=== PATIENT | female | born 1975 | race Caucasian/White ===

== ENCOUNTER 2023-07-02 09:40 | Emergency (ER) | payer OTHER ==
--- OUTSIDE RECORDS SUMMARY | 2023-07-02 09:49 | XMS REPORT | Continuity of Care Document ---
:1975 Author Organization [facility] t Address [address] [facility] [address] [place] [address] Care Team Providers Name Role Phone Eliana Spears MD Primary Care Physician [email or web address] Attending Clinician Unavailable VISIT, [facility] US2 Attending Clinician Unavailable Inessa Clancy MD Attending Clinician [phone] VISIT, NURSE MICHELLE ANDRADE Attending Clinician Unavailable Farhan Mcfarland Attending Clinician INESSA CLANCY Attending Clinician Unavailable Eliana Spears MD Attending Clinician NIXON CAMPOS Attending Clinician Unavailable Nixon Hunter Attending Clinician Unknown, Attending Attending Clinician Unavailable Lab, Ang - Db Attending Clinician Unavailable Judith Almeida MD Attending Clinician JUDITH ALEMIDA Attending Clinician Unavailable Doctor Unassigned, [place] Attending Clinician Unavailable CURLY MCMILLAN Attending Clinician Unavailable Stephany Morales MD Attending Clinician CHERYLE SEGURA Attending Clinician Unavailable GRAMM, LORI A Attending Clinician Unavailable Gramm CASH OFFICE WORKER, Lori A Attending Clinician ELIANA SPEARS Attending Clinician Unavailable Only, Ang Db Test Attending Clinician Unavailable Carmen FENG, Tuan Attending Clinician TUAN THOMAS Attending Clinician Unavailable Safia Jordan RN Attending Clinician Unavailable Karl FENG, Smitha Attending Clinician Shira CASH OFFICE WORKER, Constantine Attending Clinician [phone] CONSTANTINE CORDOVA Attending Clinician Unavailable RIGOBERTO YBARRA Attending Clinician Unavailable DALJIT THOMPSON Attending Clinician Unavailable Lab, [facility] Attending Clinician Unavailable JR KELLOGG Attending Clinician Unavailable Nurse, [facility] I Attending Clinician Unavailable Provider, [facility] Attending Clinician Unavailable Jr Muñiz Attending Clinician [phone] RANDY BEVERLY Attending Clinician Unavailable Stephany Morales Attending Clinician TUTU RAHMAN Attending Clinician Unavailable [email or web address] Admitting Clinician Unavailable ELIANA SPEARS Admitting Clinician Unavailable RANDY BEVERLY Admitting Clinician Unavailable Stephany Morales Admitting Clinician TUTU RAHMAN Admitting Clinician Unavailable Payers Payer Name Policy Type Policy Number Effective Date Expiration Date S ource Problems Condition Condition Condition Status Onset Resolution Last Treating Co mments Source Name Details Category Date Date Treatment Clinician Date Atrial Atrial Diagnosis Active 2023-04-28 Me moria fibrillati fibrillati -12 11:42:14 l on on 00:00: [place] (disorder) (disorder) 00 Active 04/25/2023 Diagnosis 04/28/2023 [facility] G Cardiology [facility] Seasonal Seasonal Disease Active Unive rs allergic allergic 1-18 ity of rhinitis rhinitis 00:00: [address] Microhemat Microhemat Disease Active U nivers uria uria 2-23 ity of 00:00: [address] COVID-19 COVID-19 Disease Active Unive rs 8-01 ity of 00:00: [address] Vaginal Vaginal Disease Active Univers dryness dryness 7-15 ity of 00:00: [place] 00 [facility] Postmenopa Postmenopa Disease Active U nivers usal usal 4-21 ity of 00:00: [place] 00 Medical Branch Acquired Acquired Disease Active Unive rs hypothyroi hypothyroi 3-19 it y of dism dism 00:00: [place] 00 Medical Branch Leukopenia Leukopenia Disease Active U nivers 3-19 ity of 00:00: [place] [facility] Varicose Varicose Disease Active Unive rs veins of veins of 3-16 ity of lower lower 00:00: [place] extremity extremity 00 [facility] Abnormal Abnormal Disease Active Unive rs TSH TSH 3-16 ity of 00:00: [place] 00 Medical Branch S/P S/P Disease Active Univers ablation ablation 6-01 ity of of atrial of atrial 00:00: Anne s fibrillati fibrillati 00 Me dical on on Branch PAROXYSMAL PAROXYSMA Diagnosis Active 2017-01-04 Memoria AFIB L AFIB 12-05 08:07:00 l Active 00:00: [place] 12/05/2016 00 [facility] I48.0 I48.0 Diagnosis Active 2017-01-03 Mem oria Active 12-05 08:31:00 l 12/05/2016 00:00: Frank maldonado [address] PAROXYSMAL PAROXYSMA Diagnosis Active 2017-01-03 Memoria ATRIAL FIB L ATRIAL 12-05 08:40:00 l FIB Active 00:00: Frank maldonado 00 7 [facility] Hyperlipid Hyperlipid Disease Active [facility] Myasthenia Myasthenia Disease Recurre [facility] 00:[facility]: Medical [place] Atrial Atrial Disease Recurre [facility] fibrillati fibrillati nce 4-14 Donna kes on on 00:00: Medical 00 [place] Myasthenia Myasthenia Problem Active C ommon gravis gravis Spirit - [facility] Migraine Migraine Problem Active Commo n without without Spirit aura and aura and - [facility] with with St status status [facility] migrainosu migrainosu Me dical s, not s, not Center intractabl intractabl e e Hyperlipid Hyperlipid Diagnosis Active Common emia emia [facility] Seasonal Seasonal Diagnosis Active Com mon allergic allergic Spirit rhinitis, rhinitis, - CH I unspecifie unspecifie d trigger d [facility] Cyst of Cyst of Diagnosis Active Commo n skin skin [facility] No No Disease [place] additional additional He alth problems problems on file on file 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 Allergies, Adverse Reactions, Alerts Allergy Allergy Status Severity Reaction(s) Onset Inactive Treating Comm ents Source Name Type Date Date Clinician morphine morphine Active Cam a l [place] NO KNOWN Allergy Active [facility] NO KNOWN Drug Active [facility] ALLERGIE [facility] [place] [facility] Family History Family Member Diagnosis Comments Start Date Stop Date Source Natural brother Atrial fibrillation [facility] Natural brother Atrial fibrillation [facility] Natural father Atrial fibrillation C [facility] Natural father Atrial fibrillation [facility] Social History Social Habit Start Date Stop Date Quantity Comments Source Sexual orientation [facility] History SDOH University o f Alcohol Std Drinks [place] [facility] Malcolm History SDIA University o f Alcohol Binge [place] [facility] Malcolm History [facility] University o f Alcohol Comment [place] Med ical Branch Exposure to 2022-08-21 2022-08-31 Not sure University of SARS-CoV-2 (event) 00:00:00 16:15:00 [facility] History of Social 2022-08-31 2022-08-31 Univers ity of function 00:00:00 00:00:00 [facility] Tobacco use and 2021-11-05 2021-11-05 Smokeless [facility] exposure 00:00:00 00:00:00 tobacco non-user History SDOH 2019-10-28 2019-10-28 1 [place] o f Alcohol Frequency 00:00:00 00:00:00 [facility] Alcohol intake 2017-02-09 2017-02-[address] [facility] 00:00:00 00:00:00 non-drinker of Medical Ce nter alcohol (finding) Sex Ass[birth year] At [birth year] ERIC Noriega kes 00:00:00 [facility]:00:00 [facility] Smoking Status Start Date Stop Date Source Tobacco smoking status [facility] Medications Ordered Filled Start Stop Current Ordering Indication Dosage Frequency Signature Comments Components Source Medication Medication Date Date Medication? Clinician (SIG) Name Name atorvastati Yes [id number] 40mg Take 1 Univers n (LIPITOR) 9-21 tablet by ity of 40 mg 00:00: mouth at [place] tablet 00 bedtime. Medical Branch atorvastati Yes [id number] 40mg Take 1 Univers n (LIPITOR) 9-21 tablet by ity of 40 mg 00:00: mouth at [place] tablet 00 bedtime. Medical Branch Nurtec ODT Yes 75 mg = 1 Me moria 75 mg oral 9-12 tab, PO, l tablet, 15:00: PRN, 0 [place] disintegrat 00 Refill(s) ing Nurtec ODT Yes 75 mg = 1 Me moria 75 mg oral 9-12 tab, PO, l tablet, 15:00: PRN, 0 [place] disintegrat 00 Refill(s) ing Qulipta Yes 60 mg, PO, Ruperto rubina 9-12 Daily, 0 l 14:59: Refill(s) [place] Qulipta 0 Yes 60 mg, PO, Ruperto rubina 9-12 Daily, 0 l 14:59: Refill(s) [place] SIMVASTATIN Yes [id number] TAKE ONE Univers 40 mg 2-17 (1) ity of tablet 00:00: TABLET(S) [place] 00 BY MOUTH Medical ONCE A DAY Branch AT BEDTIME. SIMVASTATIN Yes [id number] TAKE ONE Univers 40 mg 2-17 (1) ity of tablet 00:00: TABLET(S) [place] 00 BY MOUTH Medical ONCE A DAY Branch AT BEDTIME. SIMVASTATIN 2022- No [id number] TAKE ONE Univers 40 mg 2-17 - (1) ity of tablet 00:00: 00:00 TABLET(S) [place] 00 :00 BY MOUTH Medical ONCE A DAY Branch AT BEDTIME. SIMVASTATIN 2022- No [id number] TAKE ONE Univers 40 mg 2-17 - (1) ity of tablet 00:00: 00:00 TABLET(S) [place] 00 :00 BY MOUTH Medical ONCE A DAY Branch AT BEDTIME. amoxicillin 2022- No [id number] 500mg Take 1 Univers 500 mg 09-1816 tablet by ity of tablet 00:00: 05:59 mouth in [place] 00 :00 the Medical morning Branch and 1 tablet in the evening. Do all this for 10 days. [facility] Yes 60mg Take 60 mg Un [place] (QULIPTA) 1-18 by mouth ity of 60 mg Tab 16:35: at [place] [address] bedtime. Medical Branch [facility] Yes 60mg Take 60 mg Un [place] (QULIPTA) 1-18 by mouth ity of 60 mg Tab 16:35: at [place] [address] bedtime. Medical Branch [facility] Yes 60mg Take 60 mg Un [place] (QULIPTA) 1-18 by mouth ity of 60 mg Tab 16:35: at [place] [address] bedtime. Medical Branch [facility] Yes 60mg Take 60 mg Un [place] (QULIPTA) 1-18 by mouth ity of 60 mg Tab 16:35: at [place] [address] bedtime. Medical Branch [facility] Yes 60mg Take 60 mg Un [place] (QULIPTA) 1-18 by mouth ity of 60 mg Tab 16:35: at [place] [address] bedtime. Medical Branch [facility] Yes 60mg Take 60 mg Un [place] (QULIPTA) 1-18 by mouth ity of 60 mg Tab 16:35: at [place] [address] bedtime. Medical Branch [facility] 2023-0 Yes 60mg Take 60 mg Un [place] (QULIPTA) 1-18 by mouth ity of 60 mg Tab 16:35: at [place] [address] bedtime. Medical Branch atogepant 0 Yes 60mg Take 60 mg Un [place] (QULIPTA) 1-18 by mouth ity of 60 mg Tab 16:35: at [place] [address] bedtime. Medical Branch atogepant 0 Yes 60mg Take 60 mg Un [place] (QULIPTA) 1-18 by mouth ity of 60 mg Tab 16:35: at [place] [address] bedtime. Medical Branch azelastine 2021-08 Yes [id number] 1{spray Use 1 Univers 137 mcg 1-29 } [place] in ity of (0.1 %) 00:00: each [place] nasal spray 00 nostril in Me dical the Branch morning and 1 [place] in the evening. Use in each nostril as directed fluticasone 2021-08 Yes [id number] 1{spray Use 1 Univers propionate 1-29 } [place] in ity o f 50 00:00: each [place] mcg/actuati 00 nostril in Me dical on nasal the Branch spray morning. bromphenira 2021-08 Yes [id number] 10mL Take 10 mL Univers mine-pseudo 1-29 by mouth 4 it y of ephedrine-D 00:00: ([place] (BROMFED 00 times Medical DM) 2-30-10 daily as Bran ch mg/5 mL needed for syrup Congestion /Allergies . azelastine 2021-08 Yes [id number] 1{spray Use 1 Univers 137 mcg 1-29 } [place] in ity of (0.1 %) 00:00: each [place] nasal spray 00 nostril in Me dical the Branch morning and 1 [place] in the evening. Use in each nostril as directed fluticasone 2021-08 Yes [id number] 1{spray Use 1 Univers propionate 1-29 } [place] in ity o f 50 00:00: each [place] mcg/actuati 00 nostril in Me dical on nasal the Branch spray morning. bromphenira 2021-08 Yes [id number] 10mL Take 10 mL Univers mine-pseudo 1-29 by mouth 4 it y of ephedrine-D 00:00: (four[place] (BROMFED 00 times Medical DM) 2-30-10 daily as Bran ch mg/5 mL needed for syrup Congestion /Allergies . azelastine 2021-08 Yes [id number] 1{spray Use 1 Univers 137 mcg 1-29 } [place] in ity of (0.1 %) 00:00: each [place] nasal spray 00 nostril in Me dical the Branch morning and 1 [place] in the evening. Use in each nostril as directed fluticasone 2021-08 Yes [id number] 1{spray Use 1 Univers propionate 1-29 } [place] in ity o f 50 00:00: each [place] mcg/actuati 00 nostril in Me dical on nasal the Branch spray morning. azelastine 2021-08 Yes [id number] 1{spray Use 1 Univers 137 mcg 1-29 } [place] in ity of (0.1 %) 00:00: each [place] nasal spray 00 nostril in Me dical the Branch morning and 1 [place] in the evening. Use in each nostril as directed fluticasone 2021-08 Yes [id number] 1{spray Use 1 Univers propionate 1-29 } [place] in ity o f 50 00:00: each [place] mcg/actuati 00 nostril in Me dical on nasal the Branch spray morning. azelastine 2021-08 Yes [id number] 1{spray Use 1 Univers 137 mcg 1-29 } [place] in ity of (0.1 %) 00:00: each [place] nasal spray 00 nostril in Me dical the Branch morning and 1 [place] in the evening. Use in each nostril as directed fluticasone 2021-08 Yes [id number] 1{spray Use 1 Univers propionate 1-29 } [place] in ity o f 50 00:00: each [place] mcg/actuati 00 nostril in Me dical on nasal the Branch spray morning. azelastine 2021-08 Yes [id number] 1{spray Use 1 Univers 137 mcg 1-29 } [place] in ity of (0.1 %) 00:00: each [place] nasal spray 00 nostril in Me dical the Branch morning and 1 [place] in the evening. Use in each nostril as directed fluticasone 2021-08 Yes [id number] 1{spray Use 1 Univers propionate 1-29 } [place] in ity o f 50 00:00: each [place] mcg/actuati 00 nostril in Me dical on nasal the Branch spray morning. azelastine 2021-08 Yes [id number] 1{spray Use 1 Univers 137 mcg 1-29 } [place] in ity of (0.1 %) 00:00: each [place] nasal spray 00 nostril in Me dical the Branch morning and 1 [place] in the evening. Use in each nostril as directed fluticasone 2021-08 Yes [id number] 1{spray Use 1 Univers propionate 1-29 } [place] in ity o f 50 00:00: each [place] mcg/actuati 00 nostril in Me dical on nasal the Branch spray morning. azelastine 2021-08 Yes [id number] 1{spray Use 1 Univers 137 mcg 1-29 } [place] in ity of (0.1 %) 00:00: each [place] nasal spray 00 nostril in Me dical the Branch morning and 1 [place] in the evening. Use in each nostril as directed fluticasone 2021-08 Yes [id number] 1{spray Use 1 Univers propionate 1-29 } [place] in ity o f 50 00:00: each [place] mcg/actuati 00 nostril in Me dical on nasal the Branch spray morning. azelastine 2021-08 Yes [id number] 1{spray Use 1 Univers 137 mcg 1-29 } [place] in ity of (0.1 %) 00:00: each [place] nasal spray 00 nostril in Me dical the Branch morning and 1 [place] in the evening. Use in each nostril as directed fluticasone 2021-08 Yes [id number] 1{spray Use 1 Univers propionate 1-29 } [place] in ity o f 50 00:00: each [place] mcg/actuati 00 nostril in Me dical on nasal the Branch spray morning. azelastine 2021-08 Yes [id number] 1{spray Use 1 Univers 137 mcg 1-29 } [place] in ity of (0.1 %) 00:00: each [place] nasal spray 00 nostril in Me dical the Branch morning and 1 [place] in the evening. Use in each nostril as directed fluticasone 2021-08 Yes [id number] 1{spray Use 1 Univers propionate 1-29 } [place] in ity o f 50 00:00: each [place] mcg/actuati 00 nostril in Mi dical on nasal the Branch spray morning. azelastine 2021-08 Yes [id number] 1{spray Use 1 Univers 137 mcg 09-11 } [place] in ity of (0.1 %) 00:00: each [place] nasal spray 00 nostril in Me dical the Branch morning and 1 [place] in the evening. Use in each nostril as directed fluticasone 2021-08 Yes [id number] 1{spray Use 1 Univers propionate 09-11 } [place] in ity o f 50 00:00: each [place] mcg/actuati 00 nostril in Mi dical on nasal the Branch spray morning. bromphenira 2021-08- No [id number] 10mL Take 10 mL Univers mine-pseudo 09-11 by mouth 4 i ty of ephedrine-D 00:00: 00:00 (four) [place] M (BROMFED 00 :00 times Medical DM) 2-30-10 daily as Bran ch mg/5 mL needed for syrup Congestion /Allergies . bromphenira 2021-08- No [id number] 10mL Take 10 mL Univers mine-pseudo 09-11 by mouth 4 i ty of ephedrine-D 00:00: 00:00 (four) [place] (BROMFED 00 :00 times Medical DM) 2-30-10 daily as Bran ch mg/5 mL needed for syrup Congestion /Allergies . ascorbic Yes 1000mg Take 1,000 U T acid 5-13 mg by Health (Vitamin C) 11:29: mouth. 1000 MG 18 tablet cholecalcif Yes 5000U Take 5,000 UT aury 5-13 Units by Health (Vitamin 11:29: mouth. D-3) 125 18 MCG (5000 UT) capsule Ubrogepant Yes 100mg QD Take 100 UT (Ubrelvy) 5-13 mg by Health 100 MG 11:29: mouth 1 tablet 18 (one) time each day. PRN Atogepant Yes 60mg Take 60 mg UT (Qulipta) 5-13 by mouth 1 Heal th 60 MG 11:29: (one) tablet 18 time. ascorbic 2021-0 Yes 1000mg Take 1,000 U T acid 3-25 mg by Health (Vitamin C) 11:31: mouth. 1000 MG 37 tablet cholecalcif 2022-0 Yes 5000U Take 5,000 UT aury 3-25 Units by Health (Vitamin 11:31: mouth. D-3) 125 37 MCG (5000 UT) capsule Ubrogepant 2022-0 Yes 100mg QD Take 100 UT (Ubrelvy) 3-25 mg by Health 100 MG 11:31: mouth 1 tablet 37 (one) time each day. PRN ascorbic 2022-0 Yes 1000mg Take 1,000 U T acid 3-25 mg by Health (Vitamin C) 11:31: mouth. 1000 MG 37 tablet cholecalcif 2022-0 Yes 5000U Take 5,000 UT aury 3-25 Units by Health (Vitamin 11:31: mouth. D-3) 125 37 MCG (5000 UT) capsule Ubrogepant 2-0 Yes 100mg QD Take 100 UT (Ubrelvy) 3-25 mg by Health 100 MG 11:31: mouth 1 tablet 37 (one) time each day. PRN divalproex 2022-0 Yes 125mg Take 125 UT (Depakote) 3-14 mg by [facility] [address] 00:00: mouth tablet 00 every night. divalproex 2022-0 Yes 125mg Take 125 UT (Depakote) 3-14 mg by [facility] [address] 00:00: mouth tablet 00 every night. divalproex 2022-0 Yes 125mg Take 125 UT (Depakote) 3-14 mg by [facility] [address] 00:00: mouth tablet 00 every night. DULoxetine 2022-0 Yes 20mg QD Take 20 mg U T (Cymbalta) 3-12 by mouth 1 Hea l[facility] [address] 00:00: (one) time capsule 00 each day. DULoxetine 2022-0 Yes 20mg QD Take 20 mg U T (Cymbalta) 3-12 by mouth 1 [facility] [address] 00:00: (one) time capsule 00 each day. DULoxetine 2022-0 Yes 20mg QD Take 20 mg U T (Cymbalta) 3-12 by mouth 1 [facility] [address] 00:00: (one) time capsule 00 each day. mycophenola 2022-0 Yes 250mg Q.5D Take 250 U T te 2-23 mg by Health (Cellcept) 00:00: mouth 2 250 MG 00 (two) capsule times a day. mycophenola 2021-0 Yes 250mg Q.5D Take 250 U T te 2-23 mg by Health (Cellcept) 00:00: mouth 2 250 MG 00 (two) capsule times a day. mycophenola 2021-0 Yes 250mg Q.5D Take 250 U T te 2-23 mg by Health (Cellcept) 00:00: mouth 2 250 MG 00 (two) capsule times a day. levothyroxi 0 Yes 1{tbl} Take 1 UT ne 2-22 tablet by Health (Synthroid, 00:00: mouth 1 Levoxyl) 50 00 (one) time MCG tablet each day in the morning. simvastatin 2021-0 Yes 40mg Take 40 mg UT (Zocor) 40 2-22 by mouth Healt h MG tablet 00:00: every 00 night. levothyroxi 2021-0 Yes [id number] 50ug Take 1 Univers ne 2-22 tablet by ity of (SYNTHROID) 00:00: mouth [place] 50 mcg 00 every Medical tablet morning. Branch simvastatin 2021-0 Yes [id number] 40mg Take 1 Univers 40 mg 2-22 tablet by ity of tablet 00:00: mouth at [place] 00 bedtime. Medical Branch levothyroxi 2021-0 Yes [id number] 50ug Take 1 Univers ne 2-22 tablet by ity of (SYNTHROID) 00:00: mouth [place] 50 mcg 00 every Medical tablet morning. Branch simvastatin 2021-0 Yes [id number] 40mg Take 1 Univers 40 mg 2-22 tablet by ity of tablet 00:00: mouth at [place] 00 bedtime. Medical Branch levothyroxi 2021-0 Yes [id number] 50ug Take 1 Univers ne 2-22 tablet by ity of (SYNTHROID) 00:00: mouth [place] 50 mcg 00 every Medical tablet morning. Branch simvastatin 2021-0 Yes [id number] 40mg Take 1 Univers 40 mg 2-22 tablet by ity of tablet 00:00: mouth at [place] 00 bedtime. Medical Branch levothyroxi 2021-0 Yes [id number] 50ug Take 1 Univers ne 2-22 tablet by ity of (SYNTHROID) 00:00: mouth [place] 50 mcg 00 every Medical tablet morning. Branch simvastatin 2021-0 Yes [id number] 40mg Take 1 Univers 40 mg 2-22 tablet by ity of tablet 00:00: mouth at [place] 00 bedtime. Medical Branch levothyroxi 2021-0 Yes [id number] 50ug Take 1 Univers ne 2-22 tablet by ity of (SYNTHROID) 00:00: mouth [place] 50 mcg 00 every Medical tablet morning. Branch simvastatin 2021-0 Yes [id number] 40mg Take 1 Univers 40 mg 2-22 tablet by ity of tablet 00:00: mouth at [place] 00 bedtime. Medical Branch levothyroxi 2021-0 Yes [id number] 50ug Take 1 Univers ne 2-22 tablet by ity of (SYNTHROID) 00:00: mouth [place] 50 mcg 00 every Medical tablet morning. Branch simvastatin 0 Yes [id number] 40mg Take 1 Univers 40 mg 2-22 tablet by ity of tablet 00:00: mouth at [place] 00 bedtime. Medical Branch levothyroxi 2021-0 Yes [id number] 50ug Take 1 Univers ne 2-22 tablet by ity of (SYNTHROID) 00:00: mouth [place] 50 mcg 00 every Medical tablet morning. Branch simvastatin 0 Yes [id number] 40mg Take 1 Univers 40 mg 2-22 tablet by ity of tablet 00:00: mouth at [place] 00 bedtime. Medical Branch levothyroxi 2021-0 Yes [id number] 50ug Take 1 Univers ne 2-22 tablet by ity of (SYNTHROID) 00:00: mouth [place] 50 mcg 00 every Medical tablet morning. Branch simvastatin 2021-0 Yes [id number] 40mg Take 1 Univers 40 mg 2-22 tablet by ity of tablet 00:00: mouth at [place] 00 bedtime. Medical Branch levothyroxi 2021-0 Yes [id number] 50ug Take 1 Univers ne 2-22 tablet by ity of (SYNTHROID) 00:00: mouth [place] 50 mcg 00 every Medical tablet morning. Branch simvastatin 2021-0 Yes [id number] 40mg Take 1 Univers 40 mg 2-22 tablet by ity of tablet 00:00: mouth at [place] 00 bedtime. Medical Branch levothyroxi 2021-0 Yes [id number] 50ug Take 1 Univers ne 2-22 tablet by ity of (SYNTHROID) 00:00: mouth [place] 50 mcg 00 every Medical tablet morning. Branch simvastatin 2021-0 Yes [id number] 40mg Take 1 Univers 40 mg 2-22 tablet by ity of tablet 00:00: mouth at [place] 00 bedtime. Medical Branch levothyroxi 2021-0 Yes [id number] 50ug Take 1 Univers ne 2-22 tablet by ity of (SYNTHROID) 00:00: mouth [place] 50 mcg 00 every Medical tablet morning. Branch simvastatin 2021-0 Yes [id number] 40mg Take 1 Univers 40 mg 2-22 tablet by ity of tablet 00:00: mouth at [place] 00 bedtime. Medical Branch levothyroxi 2021-0 Yes [id number] 50ug Take 1 Univers ne 2-22 tablet by ity of (SYNTHROID) 00:00: mouth [place] 50 mcg 00 every Medical tablet morning. Branch levothyroxi 2021-0 Yes [id number] 50ug Take 1 Univers ne 2-22 tablet by ity of (SYNTHROID) 00:00: mouth [place] 50 mcg 00 every Medical tablet morning. Branch levothyroxi 2021-0 Yes [id number] 50ug Take 1 Univers ne 2-22 tablet by ity of (SYNTHROID) 00:00: mouth [place] 50 mcg 00 every Medical tablet morning. Branch levothyroxi 2021-0 Yes [id number] 50ug Take 1 Univers ne 2-22 tablet by ity of (SYNTHROID) 00:00: mouth [place] 50 mcg 00 every Medical tablet morning. Branch levothyroxi 0 Yes 1{tbl} Take 1 UT ne 2-22 tablet by Health (Synthroid, 00:00: mouth 1 Levoxyl) 50 00 (one) time MCG tablet each day in the morning. simvastatin 2021-0 Yes 40mg Take 40 mg UT (Zocor) 40 2-22 by mouth Healt h MG tablet 00:00: every 00 night. levothyroxi 2021-0 Yes 1{tbl} Take 1 UT ne 2-22 tablet by Health (Synthroid, 00:00: mouth 1 Levoxyl) 50 00 (one) time MCG tablet each day in the morning. simvastatin 2021-0 Yes 40mg Take 40 mg UT (Zocor) 40 2-22 by mouth Healt h MG tablet 00:00: every 00 night. simvastatin 2021-0 2023- No [id number] 40mg Take 1 Univers 40 mg 2-22 09-30 tablet by ity of tablet 00:00: 00:00 mouth at [place] 00 :00 bedtime. Medical Branch pyridostigm 2020-08 Yes 60mg Q.2D Take 60 mg UT ine 0-25 by mouth 5 Health (Mestinon) 00:00: (five) 60 MG 00 times a tablet day. pyridostigm 2020-08 Yes 60mg Q.2D Take 60 mg UT ine 0-25 by mouth 5 Health (Mestinon) 00:00: (five) 60 MG 00 times a tablet day. pyridostigm 2020-08 Yes 60mg Q.2D Take 60 mg [facility] ine 0-25 by mouth 5 [facility] ([place]) 00:00: (five) 60 MG 00 times a tablet day. UBRELVY 100 Yes Take by [facility] vers mg Tab 8-19 mouth as ity of 17:28: needed. [place] [address] Medical Branch UBRELVY 100 Yes Take by [facility] vers mg Tab 8-19 mouth as ity of 17:28: needed. [place] [address] Medical Branch UBRELVY 100 Yes Take by [facility] vers mg Tab 8-19 mouth as ity of 17:28: needed. [place] [address] Medical Branch UBRELVY 100 Yes Take by [facility] vers mg Tab 8-19 mouth as ity of 17:28: needed. [place] [address] Medical Branch UBRELVY 100 Yes Take by [facility] vers mg Tab 8-19 mouth as ity of 17:28: needed. [address] Branch UBRELVY 100 Yes Take by [facility] vers mg Tab 8-19 mouth as ity of 17:28: needed. [place] [address] Medical Branch UBRELVY 100 Yes Take by [facility] vers mg Tab 8-19 mouth as ity of 17:28: needed. [address] Branch UBRELVY 100 Yes Take by [facility] vers mg Tab 8-19 mouth as ity of 17:28: needed. [place] [address] Medical Branch UBRELVY 100 Yes Take by [facility] vers mg Tab 8-19 mouth as ity of 17:28: needed. [address] Branch UBRELVY 100 Yes Take by [facility] vers mg Tab 8-19 mouth as ity of 17:28: needed. [place] [address] Medical Branch UBRELVY 100 Yes Take by [facility] vers mg Tab 8-19 mouth as ity of 17:28: needed. [place] [address] Medical Branch UBRELVY 100 0 Yes Take by [facility] vers mg Tab 8-19 mouth as ity of 17:28: needed. [place] [address] [facility] Branch UBRELVY 100 Yes Take by [facility] [place] mg Tab 8-19 mouth as ity of 17:28: needed. [place] [address] Medical Branch UBRELVY 100 0 Yes Take by [facility] vers mg Tab 8-19 mouth as ity of 17:28: needed. [place] [address] [facility] Branch UBRELVY 100 0 Yes Take by [facility] vers mg Tab 8-19 mouth as ity of 17:28: needed. [place] [address] Medical Branch ascorbic Yes Take by Univer s acid 7-15 mouth. ity of (VITAMIN C 09:55: [place] ORAL) Medical Branch cyanocobala Yes Take by [facility] vers min, 7-15 mouth. ity of vitamin 09:55: [place] B-12, 38 Medical (VITAMIN Branch B-12 ORAL) calcium Yes Take by [facility] carbonate/v 7-15 mouth. ity of itamin D3 09:55: [place] (VITAMIN 38 Medical D-3 ORAL) Branch ascorbic Yes Take by Univer s acid 7-15 mouth. ity of (VITAMIN C 09:55: [place] ORAL) Medical Branch cyanocobala Yes Take by [facility] vers min, 7-15 mouth. ity of vitamin 09:55: [place] B-12, 38 Medical (VITAMIN Branch B-12 ORAL) calcium 0 Yes Take by [facility] carbonate/v 7-15 mouth. ity of itamin D3 09:55: [place] (VITAMIN 38 Medical D-3 ORAL) Branch ascorbic Yes Take by Univer s acid 7-15 mouth. ity of (VITAMIN C 09:55: [place] ORAL) Medical Branch cyanocobala Yes Take by [facility] vers min, 7-15 mouth. ity of vitamin 09:55: [place] B-12, 38 Medical (VITAMIN Branch B-12 ORAL) calcium 0 Yes Take by [facility] carbonate/v 7-15 mouth. ity of itamin D3 09:55: [place] (VITAMIN 38 Medical D-3 ORAL) Branch ascorbic Yes Take by Univer s acid 7-15 mouth. ity of (VITAMIN C 09:55: [place] ORAL) 38 Medical Branch cyanocobala Yes Take by [facility] vers min, 7-15 mouth. ity of vitamin 09:55: [place] B-12, 38 Medical (VITAMIN Branch B-12 ORAL) calcium Yes Take by [facility] carbonate/v 7-15 mouth. ity of itamin D3 09:55: [place] (VITAMIN 38 Medical D-3 ORAL) Branch ascorbic Yes Take by Univer s acid 7-15 mouth. ity of (VITAMIN C 09:55: [place] ORAL) 38 Medical Branch cyanocobala Yes Take by [facility] vers min, 7-15 mouth. ity of vitamin 09:55: [place] B-12, 38 Medical (VITAMIN Branch B-12 ORAL) calcium Yes Take by [facility] carbonate/v 7-15 mouth. ity of itamin D3 09:55: [place] (VITAMIN 38 Medical D-3 ORAL) Branch ascorbic Yes Take by Univer s acid 7-15 mouth. ity of (VITAMIN C 09:55: [place] ORAL) 38 Medical Branch cyanocobala Yes Take by [facility] vers min, 7-15 mouth. ity of vitamin 09:55: [place] B-12, 38 Medical (VITAMIN Branch B-12 ORAL) calcium Yes Take by [facility] carbonate/v 7-15 mouth. ity of itamin D3 09:55: [place] (VITAMIN 38 Medical D-3 ORAL) Branch ascorbic Yes Take by Univer s acid 7-15 mouth. ity of (VITAMIN C 09:55: [place] ORAL) 38 Medical Branch cyanocobala Yes Take by [facility] vers min, 7-15 mouth. ity of vitamin 09:55: [place] B-12, 38 Medical (VITAMIN Branch B-12 ORAL) calcium 0 Yes Take by [facility] carbonate/v 7-15 mouth. ity of itamin D3 09:55: [place] (VITAMIN 38 Medical D-3 ORAL) Branch ascorbic Yes Take by Univer s acid 7-15 mouth. ity of (VITAMIN C 09:55: [place] ORAL) 38 Medical Branch cyanocobala Yes Take by [facility] vers min, 7-15 mouth. ity of vitamin 09:55: [place] B-12, 38 Medical (VITAMIN Branch B-12 ORAL) calcium 0 Yes Take by [facility] carbonate/v 7-15 mouth. ity of itamin D3 09:55: [place] (VITAMIN 38 Medical D-3 ORAL) Branch ascorbic 0 Yes Take by Univer s acid 7-15 mouth. ity of (VITAMIN C 09:55: [place] ORAL) 38 Medical Branch cyanocobala Yes Take by [facility] vers min, 7-15 mouth. ity of vitamin 09:55: [place] B-12, 38 Medical (VITAMIN Branch B-12 ORAL) calcium Yes Take by [facility] carbonate/v 7-15 mouth. ity of itamin D3 09:55: [place] (VITAMIN 38 Medical D-3 ORAL) Branch ascorbic Yes Take by Univer s acid 7-15 mouth. ity of (VITAMIN C 09:55: [place] ORAL) 38 Medical Branch cyanocobala Yes Take by [facility] vers min, 7-15 mouth. ity of vitamin 09:55: [place] B-12, 38 Medical (VITAMIN Branch B-12 ORAL) calcium 0 Yes Take by [facility] carbonate/v 7-15 mouth. ity of itamin D3 09:55: [place] (VITAMIN 38 Medical D-3 ORAL) Branch ascorbic Yes Take by Univer s acid 7-15 mouth. ity of (VITAMIN C 09:55: [place] ORAL) 38 Medical Branch cyanocobala Yes Take by [facility] vers min, 7-15 mouth. ity of vitamin 09:55: [place] B-12, 38 Medical (VITAMIN Branch B-12 ORAL) calcium 0 Yes Take by [facility] carbonate/v 7-15 mouth. ity of itamin D3 09:55: [place] (VITAMIN 38 Medical D-3 ORAL) Branch ascorbic 0 Yes Take by Univer s acid 7-15 mouth. ity of (VITAMIN C 09:55: [place] ORAL) 38 Medical Branch cyanocobala Yes Take by [facility] vers min, 7-15 mouth. ity of vitamin 09:55: [place] B-12, 38 Medical (VITAMIN Branch B-12 ORAL) calcium 0 Yes Take by [facility] carbonate/v 7-15 mouth. ity of itamin D3 09:55: [place] (VITAMIN 38 Medical D-3 ORAL) Branch ascorbic 0 Yes Take by Univer s acid 7-15 mouth. ity of (VITAMIN C 09:55: [place] ORAL) 38 Medical Branch cyanocobala Yes Take by [facility] vers min, 7-15 mouth. ity of vitamin 09:55: [place] B-12, 38 Medical (VITAMIN Branch B-12 ORAL) calcium 0 Yes Take by [facility] carbonate/v 7-15 mouth. ity of itamin D3 09:55: [place] (VITAMIN 38 Medical D-3 ORAL) Branch ascorbic Yes Take by Univer s acid 7-15 mouth. ity of (VITAMIN C 09:55: [place] ORAL) 38 Medical Branch cyanocobala Yes Take by [facility] vers min, 7-15 mouth. ity of vitamin 09:55: [place] B-12, 38 Medical (VITAMIN Branch B-12 ORAL) calcium Yes Take by [facility] carbonate/v 7-15 mouth. ity of itamin D3 09:55: [place] (VITAMIN 38 Medical D-3 ORAL) Branch ascorbic Yes Take by Univer s acid 7-15 mouth. ity of (VITAMIN C 09:55: [place] ORAL) 38 Medical Branch cyanocobala Yes Take by [facility] vers min, 7-15 mouth. ity of vitamin 09:55: [place] B-12, 38 Medical (VITAMIN Branch B-12 ORAL) calcium 0 Yes Take by [facility] carbonate/v 7-15 mouth. ity of itamin D3 09:55: [place] (VITAMIN 38 Medical D-3 ORAL) Branch ascorbic Yes Take by Univer s acid 7-15 mouth. ity of (VITAMIN C 09:55: [place] ORAL) 38 Medical Branch cyanocobala 0 Yes Take by Uni vers min, 7-15 mouth. ity of vitamin 09:55: [place] B-12, 38 Medical (VITAMIN Branch B-12 ORAL) calcium 0 Yes Take by [facility] carbonate/v 7-15 mouth. ity of itamin D3 09:55: [place] (VITAMIN 38 Medical D-3 ORAL) Branch cyclobenzap 2021-0 Yes 5mg Take 5 mg [facility] rine 4-14 by mouth. Health (Flexeril) 00:00: prn 5 MG tablet 00 cyclobenzap 1-0 Yes 5mg Take 5 mg [facility] T rine 4-14 by mouth. Health (Flexeril) 00:00: prn 5 MG tablet 00 cyclobenzap 2021-0 Yes 5mg Take 5 mg [facility] rine 4-14 by mouth. Health (Flexeril) 00:00: prn 5 MG tablet 00 cyclobenzap 1-0 Yes [id number] 5mg Take 1 [facility] rine 5 mg 4-14 tablet by ity o f tablet 00:00: mouth 3 [place] 00 (three) Medical times Branch daily as needed for Muscle Spasms. cyclobenzap 1-0 Yes [id number] 5mg Take 1 [facility] rine 5 mg 4-14 tablet by ity o f tablet 00:00: mouth 3 [place] 00 (three) Medical times Branch daily as needed for Muscle Spasms. cyclobenzap 1-0 Yes [id number] 5mg Take 1 [facility] rine 5 mg 4-14 tablet by ity o f tablet 00:00: mouth 3 00 (three) Medical times Branch daily as needed for Muscle Spasms. cyclobenzap 1-0 Yes [id number] 5mg Take 1 [facility] rine 5 mg 4-14 tablet by ity o f tablet 00:00: mouth 3 [place] 00 (three) Medical times Branch daily as needed for Muscle Spasms. cyclobenzap 2021-0 Yes [id number] 5mg Take 1 [facility] rine 5 mg 4-14 tablet by ity o f tablet 00:00: mouth 3 00 (three) Medical times Branch daily as needed for Muscle Spasms. cyclobenzap 2021-0 Yes [id number] 5mg Take 1 [facility] rine 5 mg 4-14 tablet by ity o f tablet 00:00: mouth 3 [place] 00 (three) Medical times Branch daily as needed for Muscle Spasms. cyclobenzap 2021-0 Yes [id number] 5mg Take 1 [facility] rine 5 mg 4-14 tablet by ity o f tablet 00:00: mouth 3 [place] 00 (three) Medical times Branch daily as needed for Muscle Spasms. cyclobenzap 2021-0 Yes [id number] 5mg Take 1 [facility] rine 5 mg 4-14 tablet by ity o f tablet 00:00: mouth 3 (three) Medical times Branch daily as needed for Muscle Spasms. cyclobenzap 1-0 Yes [id number] 5mg Take 1 [facility] rine 5 mg 4-14 tablet by ity o f tablet 00:00: mouth 3 (three) Medical times Branch daily as needed for Muscle Spasms. cyclobenzap 2020-0 Yes [id number] 5mg Take 1 [facility] rine 5 mg 4-14 tablet by ity o f tablet 00:00: mouth 3 (three) Medical times Branch daily as needed for Muscle Spasms. cyclobenzap 2020-0 Yes [id number] 5mg Take 1 [facility] rine 5 mg 4-14 tablet by ity o f tablet 00:00: mouth 3 (three) Medical times Branch daily as needed for Muscle Spasms. cyclobenzap 1-0 Yes [id number] 5mg Take 1 [facility] rine 5 mg 4-14 tablet by ity o f tablet 00:00: mouth 3 (three) Medical times Branch daily as needed for Muscle Spasms. cyclobenzap 2020-0 Yes [id number] 5mg Take 1 [facility] rine 5 mg 4-14 tablet by ity o f tablet 00:00: mouth 3 (three) Medical times Branch daily as needed for Muscle Spasms. cyclobenzap 1-0 Yes [id number] 5mg Take 1 [facility] rine 5 mg 4-14 tablet by ity o f tablet 00:00: mouth 3 (three) Medical times Branch daily as needed for Muscle Spasms. cyclobenzap 1-0 Yes [id number] 5mg Take 1 [facility] rine 5 mg 4-14 tablet by ity o f tablet 00:00: mouth 3 (three) Medical times Branch daily as needed for Muscle Spasms. cyclobenzap 2021-0 Yes [id number] 5mg Take 1 [facility] rine 5 mg 4-14 tablet by ity o f tablet 00:00: mouth 3 (three) Medical times Branch daily as needed for Muscle Spasms. cyclobenzap 2021-0 Yes [id number] 5mg Take 1 [facility] rine 5 mg 4-14 tablet by ity o f tablet 00:00: mouth 3 00 (three) Medical times Branch daily as needed for Muscle Spasms. imiquimod 5 2020-0 Yes APPLY TO [facility] % cream 9-14 AFFECTED ity of 00:00: [facility] 00 [facility] Branch TAKE A TWO DAY BREAK THEN RESTART. imiquimod 5 2020-0 Yes APPLY TO [facility] [place] % cream 9-14 AFFECTED ity of 00:00: [facility] 00 [facility] Branch TAKE A TWO DAY BREAK THEN RESTART. imiquimod 5 2020-0 Yes APPLY TO [facility] [place] % cream 9-14 AFFECTED ity of 00:00: [facility] 00 [facility] Branch TAKE A TWO DAY BREAK THEN RESTART. imiquimod 5 2020-0 Yes APPLY TO [facility] [place] % cream 9-14 AFFECTED ity of 00:00: [facility] 00 [facility] Branch TAKE A TWO DAY BREAK THEN RESTART. imiquimod 5 2020-0 Yes APPLY TO [facility] [place] % cream 9-14 AFFECTED ity of 00:00: [address] Branch TAKE A TWO DAY BREAK THEN RESTART. imiquimod 5 2020-0 2021- No APPLY TO U nivers % cream 9-14 -29 AFFECTED ity of 00:00: 00:00 [facility] 00 :00 [facility] Branch TAKE A TWO DAY BREAK THEN RESTART. DULoxetine 2020-0 Yes TAKE ONE Uni vers 20 mg 2-21 (1) ity of capsule 00:00: [place] BY MOUTH Medical ONCE A Branch DAY. DULoxetine 2020-0 Yes TAKE ONE Uni vers 20 mg 2-21 (1) ity of capsule 00:00: [place](S[place] 00 BY MOUTH Medical ONCE A Branch DAY. DULoxetine 2020-0 Yes TAKE ONE Uni vers 20 mg 2-21 (1) ity of capsule 00:00: [place](S[place] 00 BY MOUTH Medical ONCE A Branch DAY. DULoxetine 2020-0 Yes TAKE ONE [facility] vers 20 mg 2-21 (1) ity of capsule 00:00: [place](S) [place] 00 BY MOUTH Medical ONCE A Branch DAY. DULoxetine 2020-0 Yes TAKE ONE [facility] vers 20 mg 2-21 (1) ity of capsule 00:00: [place](S[place] 00 BY MOUTH Medical ONCE A Branch DAY. DULoxetine 2020-0 Yes TAKE ONE [facility] vers 20 mg 2-21 (1) ity of capsule 00:00: [place](S) [place] 00 BY MOUTH Medical ONCE A Branch DAY. DULoxetine 2020-0 Yes TAKE ONE Uni vers 20 mg 2-21 (1) ity of capsule 00:00: [place](S) [place] 00 BY MOUTH Medical ONCE A Branch DAY. DULoxetine 2020-0 Yes TAKE ONE [facility] vers 20 mg 2-21 (1) ity of capsule 00:00: [place](S) [place] 00 BY MOUTH Medical ONCE A Branch DAY. DULoxetine 2020-0 Yes TAKE ONE [facility] vers 20 mg 2-21 (1) ity of capsule 00:00: [place](S) [place] 00 BY MOUTH Medical ONCE A Branch DAY. DULoxetine 2020-0 Yes TAKE ONE Uni vers 20 mg 2-21 (1) ity of capsule 00:00: [place](S) [place] 00 BY MOUTH Medical ONCE A Branch DAY. DULoxetine 2020-0 Yes TAKE ONE Uni vers 20 mg 2-21 (1) ity of capsule 00:00: [place](S) [place] 00 BY MOUTH Medical ONCE A Branch DAY. DULoxetine 2020-0 Yes TAKE ONE [facility] vers 20 mg 2-21 (1) ity of capsule 00:00: [place](S) [place] 00 BY MOUTH Medical ONCE A Branch DAY. DULoxetine 2020-0 Yes TAKE ONE Uni vers 20 mg 2-21 (1) ity of capsule 00:00: [place](S) [place] 00 BY MOUTH Medical ONCE A Branch DAY. DULoxetine 2020-0 Yes TAKE ONE Uni vers 20 mg 2-21 (1) ity of capsule 00:00: [place]LE(S) [place] 00 BY MOUTH Medical ONCE A Branch DAY. DULoxetine 2020-0 Yes TAKE ONE Uni vers 20 mg 2-21 (1) ity of capsule 00:00: [place]LE(S) [place] 00 BY MOUTH Medical ONCE A Branch DAY. DULoxetine 2020-0 Yes TAKE ONE Uni vers 20 mg 2-21 (1) ity of capsule 00:00: [place]LE(S) [place] 00 BY MOUTH Medical ONCE A Branch DAY. DULoxetine 2020-0 Yes TAKE ONE Uni vers 20 mg 2-21 (1) ity of capsule 00:00: [place]LE(S) [place] 00 BY MOUTH Medical ONCE A Branch DAY. divalproex 2020-0 Yes TK 1 T PO [facility] [place] 125 mg EC 1-13 QHS ity of tablet 00:00: [place] 00 Medical Branch divalproex 2020-0 Yes TK 1 T PO [facility] [place] 125 mg EC 1-13 QHS ity of tablet 00:00: [place] 00 Medical Branch divalproex 2020-0 Yes TK 1 T PO [facility] [place] 125 mg EC 1-13 QHS ity of tablet 00:00: [place] 00 Medical Branch divalproex 2020-0 Yes TK 1 T PO [facility] [place] 125 mg EC 1-13 QHS ity of tablet 00:00: [place] 00 Medical Branch divalproex 2020-0 Yes TK 1 T PO [facility] [place] 125 mg EC 1-13 QHS ity of tablet 00:00: [place] [facility] divalproex 2020-0 Yes TK 1 T PO [facility] [place] 125 mg EC 1-13 QHS ity of tablet 00:00: [place] [facility] divalproex 2020-0 2023- No TK 1 T PO U nivers 125 mg EC -13 18 QHS ity of tablet 00:00: 00:00 [place] 00 :00 Medical Branch divalproex 2020-0 2023- No TK 1 T PO U nivers 125 mg EC 1-13 18 QHS ity of tablet 00:00: 00:00 [place] 00 :00 Medical Branch mycophenola 2020-0 Yes 500mg Take 500 U nivers te 250 mg 1-09 mg by ity of capsule 00:00: mouth 2 [place] ([facility]) Medical times [place] daily. pyridostigm 2020-0 Yes 1-1.5 tab U nivers ine 60 mg 1-09 PO 6 x per ity of tablet 00:00: day [place] [facility] Branch mycophenola 2020-0 Yes 500mg Take 500 U nivers te 250 mg 1-09 mg by ity of capsule 00:00: mouth 2 [place] ([facility]) Medical times [place] daily. pyridostigm 2020-0 Yes 1-1.5 tab U nivers ine 60 mg 1-09 PO 6 x per ity of tablet 00:00: day [place] [facility] Branch mycophenola 2020-0 Yes 500mg Take 500 U nivers te 250 mg 1-09 mg by ity of capsule 00:00: mouth 2 [place] [id number] (two) Medical times Branch daily. pyridostigm 2020-0 Yes 1-1.5 tab U nivers ine 60 mg 1-09 PO 6 x per ity of tablet 00:00: day [place] [facility] Branch mycophenola 2020-0 Yes 500mg Take 500 U nivers te 250 mg 1-09 mg by ity of capsule 00:00: mouth 2 [place] (two) Medical times Branch daily. pyridostigm 2020-0 Yes 1-1.5 tab U nivers ine 60 mg 1-09 PO 6 x per ity of tablet 00:00: [place] [facility] Branch mycophenola 2020-0 Yes 500mg Take 500 U nivers te 250 mg 1-09 mg by ity of capsule 00:00: mouth [place] (two) Medical times [place] daily. pyridostigm 2020-0 Yes 1-1.5 tab U nivers ine 60 mg 1-09 PO 6 x per ity of tablet 00:00: [place] [facility] mycophenola 2020-0 Yes 500mg Take 500 U nivers te 250 mg 1-09 mg by ity of capsule 00:00: mouth [place] (two) Medical times [place] daily. pyridostigm 2020-0 Yes 1-1.5 tab U nivers ine 60 mg 1-09 PO 6 x per ity of tablet 00:00: [place] [facility] mycophenola 2020-0 Yes 500mg Take 500 U nivers te 250 mg 1-09 mg by ity of capsule 00:00: mouth [place] (two) Medical times [place] daily. pyridostigm 2020-0 Yes 1-1.5 tab U nivers ine 60 mg 1-09 PO 6 x per ity of tablet 00:00: [place] [facility] Branch mycophenola 2020-0 Yes 500mg Take 500 U nivers te 250 mg 1-09 mg by ity of capsule 00:00: mouth [place] (two) Medical times [place] daily. pyridostigm 2020-0 Yes 1-1.5 tab U nivers ine 60 mg 1-09 PO 6 x per ity of tablet 00:00: [place] [facility] Branch mycophenola 2020-0 Yes 500mg Take 500 U nivers te 250 mg 1-09 mg by ity of capsule 00:00: mouth [place] (two) Medical times Branch daily. pyridostigm 2020-0 Yes 1-1.5 tab U nivers ine 60 mg 1-09 PO 6 x per ity of tablet 00:00: day [place] [facility] Branch mycophenola 2020-0 Yes 500mg Take 500 U nivers te 250 mg 1-09 mg by ity of capsule 00:00: mouth [place] (two) Medical times [place] daily. pyridostigm 2020-0 Yes 1-1.5 tab U nivers ine 60 mg 1-09 PO 6 x per ity of tablet 00:00: day [place] [facility] Branch mycophenola 2020-0 Yes 500mg Take 500 U nivers te 250 mg 1-09 mg by ity of capsule 00:00: mouth [place] (two) Medical times [place] daily. pyridostigm 2020-0 Yes 1-1.5 tab U nivers ine 60 mg 1-09 PO 6 x per ity of tablet 00:00: [place] [facility] Branch mycophenola 2020-0 Yes 500mg Take 500 U nivers te 250 mg 1-09 mg by ity of capsule 00:00: mouth [place] (two) Medical times [place] daily. pyridostigm 2020-0 Yes 1-1.5 tab U nivers ine 60 mg 1-09 PO 6 x per ity of tablet 00:00: day [place] [facility] Branch mycophenola 2020-0 Yes 500mg Take 500 U nivers te 250 mg 1-09 mg by ity of capsule 00:00: mouth [place] (two) Medical times [place] daily. pyridostigm 2020-0 Yes 1-1.5 tab U nivers ine 60 mg 1-09 PO 6 x per ity of tablet 00:00: [place] [facility] Branch mycophenola 2020-0 Yes 500mg Take 500 U nivers te 250 mg 1-09 mg by ity of capsule 00:00: mouth [place] (two) Medical times [place] daily. pyridostigm 2020-0 Yes 1-1.5 tab U nivers ine 60 mg 1-09 PO 6 x per ity of tablet 00:00: [place] [facility] Branch mycophenola 2020-0 Yes 500mg Take 500 U nivers te 250 mg 1-09 mg by ity of capsule 00:00: mouth 2 [place] (two) Medical times [place] daily. pyridostigm 2020-0 Yes 1-1.5 tab U nivers ine 60 mg 1-09 PO 6 x per ity of tablet 00:00: day [place] 00 Medical Branch mycophenola 2020-0 Yes 500mg Take 500 U nivers te 250 mg 1-09 mg by ity of capsule 00:00: mouth 2 [place] (two) Medical times Branch daily. pyridostigm 2020-0 Yes 1-1.5 tab U nivers ine 60 mg 1-09 PO 6 x per ity of tablet 00:00: day [place] [facility] mycophenola 2020-0 Yes 500mg Take 500 U nivers te 250 mg 1-09 mg by ity of capsule 00:00: mouth 2 [place] (two) Medical times Branch daily. pyridostigm 2020-0 Yes 1-1.5 tab U nivers ine 60 mg 1-09 PO 6 x per ity of tablet 00:00: day [place] [facility] mycophenola 2017-0 Yes 750mg Q.5D Take [address] te 7-02 mg by [facility] 11:36: mouth 2 [facility] 250 mg 48 (two) Center capsule times daily. pyridostigm 2017-0 Yes 60mg Q.25D Take [address] [facility] ine 7-02 by mouth 4 [facility] ([facility]) 11:36: (four) Medic al 60 mg 48 times Center tablet daily. pyridostigm 2017-0 Yes 180mg QD Take [address] ine 7-02 mg by [facility] ([place]) 11:36: mouth Medica l 180 mg CR 48 nightly. Center tablet flecainide 2017-0 Yes 50mg Q.5D Take [address] (TAMBOCOR) 7-02 by mouth 2 [place] 50 MG 11:36: (two) Medical tablet 48 times Center daily. simvastatin 2017-0 Yes 40mg QD Take [address] (ZOCOR) 40 7-02 by mouth [facility] MG tablet 11:36: nightly. [facility]i [facility] 48 Center SUMAtriptan 2017-0 Yes 25mg Take [address] [facility] [address] (IMITREX) 7-02 by mouth [facility] 25 MG 11:36: every 2 Medical tablet 48 (two) Center hours as needed for Migraine. mycophenola 2017-0 Yes 750mg Q.5D Take [address] te 7-02 mg by [facility] (CELLCEPT) 11:36: mouth 2 [facility] 250 mg 48 (two) Center capsule times daily. pyridostigm 2017-0 Yes 60mg Q.25D Take [address] [facility] ine 7-02 by mouth 4 [facility] ([place]) 11:36: (four) Medic al 60 mg 48 times Center tablet daily. pyridostigm 2017-0 Yes 180mg QD Take [address] ine 7-02 mg by [facility] ([place]) 11:36: mouth Medica l 180 mg CR 48 nightly. Center tablet flecainide 2017-0 Yes 50mg Q.5D Take [address] (TAMBOCOR) 7-02 by mouth 2 [place] 50 MG 11:36: (two) Medical tablet 48 times Center daily. simvastatin 2017-0 Yes 40mg QD Take [address] [facility] [facility] (ZOCOR) 40 7-02 by mouth [facility] MG tablet 11:36: nightly. [facility]i [facility] 48 Center SUMAtriptan 2017-0 Yes 25mg Take [address] [facility] (IMITREX) 7-02 by mouth [facility] 25 MG 11:36: every 2 Medical tablet 48 (two) Center hours as needed for Migraine. mycophenola 2017-0 Yes 750mg Q.5D Take [address] te 7-02 mg by [facility] (CELLCEPT) 11:36: mouth 2 [facility]i [facility] 250 mg 48 (two) Center capsule times daily. pyridostigm 2017-0 Yes 60mg Q.25D Take [address] [facility] ine 7-02 by mouth 4 [facility] ([place]) 11:36: (four) Medic al 60 mg 48 times Center tablet daily. pyridostigm 2017-0 Yes 180mg QD Take [address] ine 7-02 mg by [facility] ([place]) 11:36: mouth Medica l 180 mg CR 48 nightly. Center tablet flecainide 2017-0 Yes 50mg Q.5D Take [address] (TAMBOCOR) 7-02 by mouth 2 [place] 50 MG 11:36: (two) Medical tablet 48 times Center daily. simvastatin 2017-0 Yes 40mg QD Take [address] (ZOCOR) 40 7-02 by mouth [facility] MG tablet 11:36: nightly. [facility]i [facility] 48 Center SUMAtriptan 2017-0 Yes 25mg Take [address] [facility] (IMITREX) 7-02 by mouth [facility] 25 MG 11:36: every 2 Medical tablet 48 (two) Center hours as needed for Migraine. mycophenola 2017-0 Yes 750mg Q.5D Take [address] te 7-02 mg by [facility] (CELLCEPT) 11:36: mouth 2 [facility]i [facility] 250 mg 48 (two) Center capsule times daily. pyridostigm 2017-0 Yes 60mg Q.25D Take [address] [facility] ine 7-02 by mouth 4 [facility] ([place]) 11:36: (four) Medic al 60 mg 48 times Center tablet daily. pyridostigm 2017-0 Yes 180mg QD Take [address] ine 7-02 mg by [facility] ([place]) 11:36: mouth Medica l 180 mg CR 48 nightly. Center tablet flecainide 2017-0 Yes 50mg Q.5D Take [address] (TAMBOCOR) 7-02 by mouth 2 [place] 50 MG 11:36: (two) Medical tablet 48 times Center daily. simvastatin 2017-0 Yes 40mg QD Take [address] (ZOCOR) 40 7-02 by mouth [facility] MG tablet 11:36: nightly. [facility]i [facility] 48 Center SUMAtriptan 2017-0 Yes 25mg Take [address] [facility] (IMITREX) 7-02 by mouth [facility] 25 MG 11:36: every 2 Medical tablet 48 (two) Center hours as needed for Migraine. mycophenola 2017-0 Yes 750mg Q.5D Take [address] te 7-02 mg by [facility] (CELLCEPT) 11:36: mouth 2 [facility]i [facility] 250 mg 48 (two) Center capsule times daily. pyridostigm 2017-0 Yes 60mg Q.25D Take [address] [facility] ine 7-02 by mouth 4 [facility] ([place]) 11:36: (four) Medic al 60 mg 48 times Center tablet daily. pyridostigm 2017-0 Yes 180mg QD Take [address] ine 7-02 mg by [facility] ([place]) 11:36: mouth Medica l 180 mg CR 48 nightly. Center tablet flecainide 2017-0 Yes 50mg Q.5D Take [address] (TAMBOCOR) 7-02 by mouth 2 [place] 50 MG 11:36: (two) Medical tablet 48 times Center daily. simvastatin 2017-0 Yes 40mg QD Take [address] (ZOCOR) 40 7-02 by mouth [facility] MG tablet 11:36: nightly. Medi [facility] 48 Center SUMAtriptan 2017-0 Yes 25mg Take [address] (IMITREX) 7-02 by mouth [facility] 25 MG 11:36: every 2 Medical tablet 48 (two) Center hours as needed for Migraine. mycophenola 2017-0 Yes 750mg Q.5D Take [address] te 7-02 mg by [facility] (CELLCEPT) 11:36: mouth 2 [facility]i [facility] 250 mg 48 (two) Center capsule times daily. pyridostigm 2017-0 Yes 60mg Q.25D Take [address] ine 7-02 by mouth 4 [facility] ([place]) 11:36: (four) Medic al 60 mg 48 times Center tablet daily. pyridostigm 2017-0 Yes 180mg QD Take [address] ine 7-02 mg by [facility] ([place]) 11:36: mouth Medica l 180 mg CR 48 nightly. Center tablet flecainide 2017-0 Yes 50mg Q.5D Take [address] [facility] (TAMBOCOR) 7-02 by mouth 2 Nomi es 50 MG 11:36: (two) Medical tablet 48 times Center daily. simvastatin 2017-0 Yes 40mg QD Take [address] [facility] (ZOCOR) 40 7-02 by [facility] tablet 11:36: nightly. Medi flor 48 Center SUMAtriptan 2017-0 Yes 25mg Take [address] [facility] (IMITREX) 7-02 by mouth [facility] 25 MG 11:36: every 2 Medical tablet 48 (two) Center hours as needed for Migraine. mycophenola 2017-0 Yes 750mg Q.5D Take [address] te 7-02 mg by [facility] (CELLCEPT) 11:36: mouth 2 Medi flor 250 mg 48 (two) Center capsule times daily. pyridostigm 2017-0 Yes 60mg Q.25D Take [address] [facility] ine 7-02 by mouth 4 [facility] ([place]) 11:36: (four) Medic al 60 mg 48 times Center tablet daily. pyridostigm 2017-0 Yes 180mg QD Take [address] ine 7-02 [facility] by [facility] ([place]) 11:36: mouth Medica l 180 mg CR 48 nightly. Center tablet flecainide 2017-0 Yes 50mg Q.5D Take [address] (TAMBOCOR) 02-12 by mouth 2 Nomi es 50 MG 11:36: (two) Medical tablet 48 times Center daily. simvastatin Yes 40mg QD Take [address] [facility] (ZOCOR) 40 02-12 by mouth [facility] tablet 11:36: nightly. Medi flor 48 Center SUMAtriptan Yes 25mg Take [address] [facility] (IMITREX) 02-12 by mouth [facility] 25 MG 11:36: every 2 Medical tablet 48 (two) Center hours as needed for Migraine. Klor-Con No Notes: Memoria 5-26 (Same as: l 14:00: K-Dur 20) [place] 00 "Do Not Crush" With food and full glass of water Klor-Con No Notes: Memoria 5-26 (Same as: l 14:00: K-Dur 20) [place] 00 "Do Not Crush" With food and full glass of water Klor-Con No Notes: Memoria 5-26 (Same as: l 14:00: K-Dur ) Bartolo 00 "Do Not Crush" With food and full glass of water Acetaminoph Yes 1 - 2 tab, Memoria en 300 MG / 5-25 PO, Q6H, l Codeine 14:19: PRN Pain, Ludy nn Phosphate 00 Take 1-2 30 MG Oral tab every Tablet 4-6 hours [Tylenol prn pain, with X 5 day, # Codeine #3] 32 tab, 0 Refill(s) Acetaminoph Yes 1 - 2 tab, Memoria en 300 MG / 5-25 PO, Q6H, l Codeine 14:19: PRN Pain, Ludy nn Phosphate 00 Take 1-2 30 MG Oral tab every Tablet 4-6 hours [Tylenol prn pain, with X 5 day, # Codeine #3] 32 tab, 0 Refill(s) Acetaminoph Yes 1 - 2 tab, Memoria en 300 MG / 5-25 PO, Q6H, l Codeine 14:19: PRN Pain, Ludy nn Phosphate 00 Take 1-2 30 MG Oral tab every Tablet 4-6 hours [Tylenol prn pain, with X 5 day, # Codeine #3] 32 tab, 0 Refill(s) Acetaminoph No Notes: Do M emoria en 300 MG / 5-25 not exceed l Codeine 14:17: 4gm/day of Herm gosia Phosphate 00 acetaminop 30 MG Oral hen. (Same Tablet as: [Tylenol Tylenol with with Codeine #3] Codeine # 3) Acetaminoph No Notes: Do M emoria en 300 MG / 5-25 not exceed l Codeine 14:17: 4gm/day of Herm gosia Phosphate 00 acetaminop 30 MG Oral hen. (Same Tablet as: [Tylenol Tylenol with with Codeine #3] Codeine # 3) Acetaminoph No Notes: Do M emoria en 300 MG / 5-25 not exceed l Codeine 14:17: 4gm/day of Herm gosia Phosphate 00 acetaminop 30 MG Oral hen. (Same Tablet as: [Tylenol Tylenol with with Codeine #3] Codeine # 3) pantoprazol No Notes: Ruperto rubina e 5-25 Tablet l 14:00: should not Bartolo 00 be chewed or crushed. (Same as: Protonix) aspirin 81 No Notes: Do Me moria mg tablet, 5-25 not crush l enteric 14:00: or chew. Frank n coated 00 (Same As: Ecotrin) Vitamin C No Notes: Memori a 5-25 (Same as: l 14:00: Vitamin C) cholecalcif No Notes: Ruperto rubina aury 5-25 Same as : l 14:00: Vitamin D3 Vitamin B12 No Notes: Ruperto rubina 5-25 (Same As: l 14:00: Vitamin Bartolo 00 B12) Eliquis No Notes: Memoria 5-25 Same as: l 14:00: Eliquis [place] 00 pantoprazol No Notes: Ruperto rubina e 5-25 Tablet l 14:00: should not [place] 00 be chewed or crushed. (Same as: Protonix) aspirin 81 No Notes: Do Me moria mg tablet, 5-25 not crush l enteric 14:00: or chew. Frakn n coated 00 (Same As: Ecotrin) Vitamin C No Notes: Memori a 5-25 (Same as: l 14:00: Vitamin C) Bartolo 00 cholecalcif No Notes: Ruperto rubina aury 5-25 Same as : l 14:00: Vitamin D3 Bart[place] 00 Vitamin B12 No Notes: Ruperto rubina 5-25 (Same As: l 14:00: Vitamin [place] 00 B12) Eliquis No Notes: Memoria 5-25 Same as: l 14:00: Eliquis pantoprazol No Notes: Ruperto rubina e 5-25 Tablet l 14:00: should not [place] 00 be chewed or crushed. (Same as: Protonix) aspirin 81 No Notes: Do Me moria mg tablet, 5-25 not crush l enteric 14:00: or chew. Frank n coated 00 (Same As: Ecotrin) Vitamin C No Notes: Memori a 5-25 (Same as: l 14:00: Vitamin C) [place] 00 cholecalcif No Notes: Ruperto rubina aury 5-25 Same as : l 14:00: Vitamin D3 Vitamin B12 No Notes: Ruperto rubina 5-25 (Same As: l 14:00: Vitamin [place] 00 B12) Eliquis No Notes: Memoria 5-25 Same as: l 14:00: Eliquis [place] 00 ibuprofen No 600 mg = 1 Me moria 600 mg oral 5-25 tab, PO, l tablet 12:43: Q6H, PRN [place] 00 Pain or Fever, Take with food, X 5 day, # 20 tab, 0 Refill(s) Sucralfate Yes 1 gm = 1 Mem oria 1000 MG 5-25 tab, PO, l Oral Tablet 12:43: QID-Before [place] [Carafate] 00 Meals, # 56 tab, 0 Refill(s) pantoprazol Yes 40 mg = 1 M emoria e 40 mg 5-25 tab, PO, l oral 12:43: Daily, # Bartolo enteric 00 30 tab, 0 coated Refill(s) tablet ibuprofen No 600 mg = 1 Me moria 600 mg oral 5-25 tab, PO, l tablet 12:43: Q6H, PRN [place] 00 Pain or Fever, Take with food, X 5 day, # 20 tab, 0 Refill(s) Sucralfate Yes 1 gm = 1 Mem oria 1000 MG 5-25 tab, PO, l Oral Tablet 12:43: QID-Before [place] [Carafate] 00 Meals, # 56 tab, 0 Refill(s) pantoprazol Yes 40 mg = 1 M emoria e 40 mg 5-25 tab, PO, l oral 12:43: Daily, # [place] enteric 00 30 tab, 0 coated Refill(s) tablet ibuprofen No 600 mg = 1 Me moria 600 mg oral 5-25 tab, PO, l tablet 12:43: Q6H, PRN Bartolo 00 Pain or Fever, Take with food, X 5 day, # 20 tab, 0 Refill(s) Sucralfate Yes 1 gm = 1 Mem oria 1000 MG 5-25 tab, PO, l Oral Tablet 12:43: QID-Before [place] [Carafate] 00 Meals, # 56 tab, 0 Refill(s) pantoprazol Yes 40 mg = 1 M emoria e 40 mg 5-25 tab, PO, l oral 12:43: Daily, # [place] enteric 00 30 tab, 0 coated Refill(s) tablet Tylenol No Notes: Max Ruperto rubina 5-25 acetaminop l 05:23: hen 4000 Bartolo 00 mg/day (4 gm/day). (Same as: Tylenol Extra Strength) Tylenol No Notes: Max Ruperto rubina 5-25 acetaminop l 05:23: hen 4000 [place] 00 mg/day (4 gm/day). (Same as: Tylenol Extra Strength) Tylenol No Notes: Max Ruperto rubina 5-25 acetaminop l 05:23: hen 4000 Bartolo 00 mg/day (4 gm/day). (Same as: Tylenol Extra Strength) Pyridostigm No Notes: Ruperto rubina ine 5-25 (Same as: l 03:00: Mestinon) [place] 00 Do not crush or chew. Pyridostigm No Notes: Ruperto rubina ine 5-25 (Same as: l 03:00: Mestinon) [place] Do not crush or chew. Pyridostigm No Notes: Ruperto rubina ine 5-25 (Same as: l 03:00: Mestinon) [place] Do not crush or chew. Saline No Notes: Memoria Flush 0.9% 5-25 (Same as: l 02:00: BD [place] 00 Posiflush) Flecainide No Notes: Memor ia 5-25 (Same as: l 02:00: Tambocor) [place] Sucralfate No Notes: December emoria 5-25 interfere l 02:00: w/enteral [place] 00 feeds - Take 1 hr before or 2 hr after antacids, dairy pdt, meals & minerals - On empty stomach. For patients unable to swallow tablet, dissolve in 10mL - 30mL of water or juice and stir before giving. (Same As: Carafate) Simvastatin No Notes: Ruperto rubina 5-25 (Same as: l 02:00: Zocor) [place] Saline No Notes: Memoria Flush 0.9% 5-25 (Same as: l 02:00: BD [place] 00 Posiflush) Flecainide No Notes: Memor ia 5-25 (Same as: l 02:00: Tambocor) Bartolo Sucralfate No Notes: December emoria 5-25 interfere l 02:00: w/enteral [place] 00 feeds - Take 1 hr before or 2 hr after antacids, dairy pdt, meals & minerals - On empty stomach. For patients unable to swallow tablet, dissolve in 10mL - 30mL of water or juice and stir before giving. (Same As: Carafate) Simvastatin No Notes: Ruperto rubina 5-25 (Same as: l 02:00: Zocor) Bartolo Saline No Notes: Memoria Flush 0.9% 5-25 (Same as: l 02:00: BD [place] 00 Posiflush) Flecainide No Notes: Memor ia 5-25 (Same as: l 02:00: Tambocor) [place] Sucralfate No Notes: December emoria 5-25 interfere l 02:00: w/enteral [place] 00 feeds - Take 1 hr before or 2 hr after antacids, dairy pdt, meals & minerals - On empty stomach. For patients unable to swallow tablet, dissolve in 10mL - 30mL of water or juice and stir before giving. (Same As: Carafate) Simvastatin No Notes: Ruperto rubina 5-25 (Same as: l 02:00: Zocor) [place] 00 mycophenola No Notes: Ruperto rubina te mofetil 5-25 SEPARATE l 01:00: ANTACIDS [place] 00 from Cellcept by 2 hrs. (Same As: CellCept) mycophenola No Notes: Ruperto rubina te mofetil 5-25 SEPARATE l 01:00: ANTACIDS [place] 00 from Cellcept by 2 hrs. (Same As: CellCept) mycophenola No Notes: Ruperto rubina te mofetil 5-25 SEPARATE l 01:00: ANTACIDS [place] 00 from Cellcept by 2 hrs. (Same As: CellCept) apixaban 5 Yes 5 mg = 1 Mem oria MG Oral 5-25 tab, PO, l Tablet 00:54: BID, 0 [place] [Eliquis] 00 Refill(s) apixaban 5 Yes 5 mg = 1 Mem oria MG Oral 5-25 tab, PO, l Tablet 00:54: BID, 0 [place] [Eliquis] 00 Refill(s) apixaban 5 Yes 5 mg = 1 Mem oria MG Oral 5-25 tab, PO, l Tablet 00:54: BID, 0 [place] [Eliquis] 00 Refill(s) Pyridostigm No Notes: Ruperto rubina ine 5-24 (Same as: l 21:00: Mestinon) Pyridostigm No Notes: Ruperto rubina ine 5-24 (Same as: l 21:00: Mestinon) Pyridostigm No Notes: Ruperto rubina ine 5-24 (Same as: l 21:00: Mest[place]on) Zofran No 4 mg, Memoria 5-24 Route: l 20:30: IVP, Drug Bartolo 00 form: INJ, ONCE, Dosing Weight 66.364, kg, Start date: 01/04/17 15:30:00 CDT, Stop date: 01/04/17 15:30:00 CDT Zofran 2017-0 No 4 mg, Memoria 5-24 Route: l 20:30: IVP, Drug Bartolo 00 form: INJ, ONCE, Dosing Weight 66.364, kg, Start date: 01/04/17 15:30:00 CDT, Stop date: 01/04/17 15:30:00 CDT Zofran 2017-0 No 4 mg, Memoria 5-24 Route: l 20:30: IVP, Drug Bartolo 00 form: INJ, ONCE, Dosing Weight 66.364, kg, Start date: 01/04/17 15:30:00 CDT, Stop date: 01/04/17 15:30:00 CDT Saline No Notes: Memoria Flush 0.9% 5-24 (Same as: l 19:46: BD [place] 00 Posiflush) acetaminoph No Notes: Do M emoria en-codeine 5-24 not exceed l #3 19:46: 4gm/day of [place] 00 acetaminop hen. (Same as: Tylenol with Codeine # 3) Saline No Notes: Memoria Flush 0.9% 5-24 (Same as: l 19:46: BD [place] 00 Posiflush) acetaminoph No Notes: Do M emoria en-codeine 5-24 not exceed l #3 19:46: 4gm/day of [place] 00 acetaminop hen. (Same as: Tylenol with Codeine # 3) Saline No Notes: Memoria Flush 0.9% 5-24 (Same as: l 19:46: BD [place] 00 Posiflush) acetaminoph No Notes: Do M emoria en-codeine 5-24 not exceed l #3 19:46: 4gm/day of [place] 00 acetaminop hen. (Same as: Tylenol with Codeine # 3) Vitamin D3 Yes 5,000 Memori a 5000 intl 5-24 IntlUnit = l units oral 15:02: 1 cap, PO, H ermann capsule 00 Daily, # 30 cap, 1 Refill(s) Sumatriptan Yes = 1 tab, Me moria 5-24 PO, ONCE, l 15:02: PRN Other 00 -See Comment, 0 Refill(s) Vitamin B12 Yes 2,500 Memor ia 2500 mcg 5-24 microgram l sublingual 15:02: = 1 tab, Her roberts tablet 00 SL, Daily, # 30 tab, 0 Refill(s) Zyrtec 20170 Yes Daily, 0 Memoria 5-24 Refill(s) l 15:02: [place] aspirin 81 2017 Yes 81 mg = 1 Me moria mg tablet, 5-24 tab, PO, l enteric 15:02: Daily, # Frank n coated 00 90 tab, 3 Refill(s) flecainide Yes 50 mg = 1 Me moria 50 mg oral 5-24 tab, PO, l tablet 15:02: Q12H, # [place] 00 180 tab, 0 Refill(s) Vitamin C Yes 1,000 mg = Me moria 1000 mg 5-24 1 tab, PO, l oral tablet 15:02: Daily, # He rmann 00 30 tab, 0 Refill(s) simvastatin Yes 40 mg = 1 M emoria 40 mg oral 5-24 tab, PO, l tablet 15:02: Bedtime, # Ludy nn 00 90 tab, 1 Refill(s) Vitamin D3 Yes 5,000 Memori a 5000 intl 5-24 IntlUnit = l units oral 15:02: 1 cap, PO, H ermann capsule 00 Daily, # 30 cap, 1 Refill(s) Sumatriptan Yes = 1 tab, Me moria 5-24 PO, ONCE, l 15:02: PRN Other 00 -See Comment, 0 Refill(s) Vitamin B12 Yes 2,500 Memor ia 2500 mcg 5-24 microgram l sublingual 15:02: = 1 tab, Her roberts tablet 00 SL, Daily, # 30 tab, 0 Refill(s) Zyrtec 20170 Yes Daily, 0 Memoria 5-24 Refill(s) l 15:02: [place] 00 aspirin 81 20170 Yes 81 mg = 1 Me moria mg tablet, 5-24 tab, PO, l enteric 15:02: Daily, # Frank n coated 00 90 tab, 3 Refill(s) flecainide 2017 Yes 50 mg = 1 Me moria 50 mg oral 5-24 tab, PO, l tablet 15:02: Q12H, # Bartolo 00 180 tab, 0 Refill(s) Vitamin C 2017 Yes 1,000 mg = Me moria 1000 mg 5-24 1 tab, PO, l oral tablet 15:02: Daily, # He rmann 00 30 tab, 0 Refill(s) simvastatin Yes 40 mg = 1 M emoria 40 mg oral 5-24 tab, PO, l tablet 15:02: Bedtime, # Ludy nn 00 90 tab, 1 Refill(s) Vitamin D3 Yes 5,000 Memori a 5000 intl 5-24 IntlUnit = l units oral 15:02: 1 cap, PO, H ermann capsule 00 Daily, # 30 cap, 1 Refill(s) Sumatriptan Yes = 1 tab, Me moria 5-24 PO, ONCE, l 15:02: PRN Other 00 -See Comment, 0 Refill(s) Vitamin B12 Yes 2,500 Memor ia 2500 mcg 5-24 microgram l sublingual 15:02: = 1 tab, Her roberts tablet 00 SL, Daily, # 30 tab, 0 Refill(s) Zyrtec 2017 Yes Daily, 0 Memoria 5-24 Refill(s) l 15:02: Vitamin C 2017 Yes 1,000 mg = Me moria 1000 mg 5-24 1 tab, PO, l oral tablet 15:02: Daily, # He rmann 00 30 tab, 0 Refill(s) simvastatin 2017 Yes 40 mg = 1 M emoria 40 mg oral 5-24 tab, PO, l tablet 15:02: Bedtime, # Ludy nn 00 90 tab, 1 Refill(s) aspirin 81 2017 Yes 81 mg = 1 Me moria mg tablet, 5-24 tab, PO, l enteric 15:02: Daily, # Frank n coated 00 90 tab, 3 Refill(s) flecainide 2017-0 Yes 50 mg = 1 Me moria 50 mg oral 5-24 tab, PO, l tablet 15:02: Q12H, # [place] 00 180 tab, 0 Refill(s) sodium 2017-0 No 1,000 mL, Memori a chloride 5-24 Rate: 100 l 0.9% 1000 14:13: ml/hr, Frank n ml INJ 00 Infuse 1,000 mL over: 10 hr, Route: IV, Dosing Weight 66.364 kg, Total Volume: 1,000, Start date: 01/04/17 9:13:00 CDT, Duration: 30 day, Stop date: 02/03/17 9:12:00 CDT sodium 2017-0 No 1,000 mL, Memori a chloride 5-24 Rate: 100 l 0.9% 1000 14:13: ml/hr, Frank n ml INJ 00 Infuse 1,000 mL over: 10 hr, Route: IV, Dosing Weight 66.364 kg, Total Volume: 1,000, Start date: 01/04/17 9:13:00 CDT, Duration: 30 day, Stop date: 02/03/17 9:12:00 CDT sodium 2017-0 No 1,000 mL, Memori a chloride 5-24 Rate: 100 l 0.9% 1000 14:13: ml/hr, Frank n ml INJ 00 Infuse 1,000 mL over: 10 hr, Route: IV, Dosing Weight 66.364 kg, Total Volume: 1,000, Start date: 01/04/17 9:13:00 CDT, Duration: 30 day, Stop date: 02/03/17 9:12:00 CDT pyridostigm 2017-0 Yes 60 mg = 1 M emoria ine 60 mg 5-24 tab, PO, l oral tablet 13:57: Q4H, 0630 H ermann 00 am,1030 am,2:30 pm,6;30 pm, 0 Refill(s) pyridostigm 2017-0 Yes 180 mg = 1 Memoria ine 180 mg 5-24 tab, PO, l oral 13:57: Bedtime, Bartolo tablet, 00 10 pm, 0 extended Refill(s) release pyridostigm 2017-0 Yes 60 mg = 1 M emoria ine 60 mg 5-24 tab, PO, l oral tablet 13:57: Q4H, 0630 H ermann 00 am,1030 am,2:30 pm,6;30 pm, 0 Refill(s) pyridostigm 2017-0 Yes 180 mg = 1 Memoria ine 180 mg 5-24 tab, PO, l oral 13:57: Bedtime, [place] tablet, 00 10 pm, 0 extended Refill(s) release pyridostigm 2017-0 Yes 180 mg = 1 Memoria ine 180 mg 5-24 tab, PO, l oral 13:57: Bedtime, [place] tablet, 00 10 pm, 0 extended Refill(s) release pyridostigm 2017-0 Yes 60 mg = 1 M emoria ine 60 mg 5-24 tab, PO, l oral tablet 13:57: Q4H, 0630 H ermann 00 am,1030 am,2:30 pm,6;30 pm, 0 Refill(s) mycophenola 2017-0 Yes 3 caps, Mem oria te mofetil 5-24 PO, BID, 1 l 250 mg oral 13:53: hour Frank n capsule 00 before or 2 hours after meals, 0 Refill(s) mycophenola 2017-0 Yes 3 caps, Mem oria te mofetil 5-24 PO, BID, 1 l 250 mg oral 13:53: hour Frank n capsule 00 before or 2 hours after meals, 0 Refill(s) mycophenola 2017-0 Yes 3 caps, Mem oria te mofetil 5-24 PO, BID, 1 l 250 mg oral 13:53: hour Frank n capsule 00 before or 2 hours after meals, 0 Refill(s) Simvastatin Simvastatin Yes Na Beavers 1 tablet Common in the [facility] CellCept CellCept Yes Na Beavers not Comm on defined [facility] Topiramate Topiramate Yes Na Beavers 1 tablet Common [facility] Mestinon Mestinon Yes Na Beavers 1 tablet Common [facility] Simvastatin Simvastatin Yes Na Beavers TAKE 1 Common TABLET BY [facility] EVERY [facility] Pyridostigm Pyridostigm Yes Na Beavers 1 tablet Common ine [place] [facility] [place] [facility] Immunizations Ordered Filled Date Status Comments Source Immunization Name Immunization Name Influenza Virus 2022-05-25 Completed [facility] Influenza Virus 2022-05-25 Completed [facility] Vaccine 00:00:00 [facility] Influenza Virus 2022-05-25 Completed [facility] Vaccine 00:00:00 [facility] Influenza Virus 2022-05-25 Completed [facility] Vaccine 00[facility]00:00 [facility] Influenza Virus 2022-05-25 Completed [facility] Vaccine 00:00:00 [facility] Influenza Virus 2022-05-25 Completed [facility] Vaccine 00:00:00 [facility] Influenza Virus 2022-05-25 Completed [facility] Vaccine 00:00:00 [facility] Pneumococcal 13 2021-10-05 Completed [facility] of Conjugate, PCV13 00:00:00 [facility] dical (Prevnar 13) Malcolm Influenza Virus 2021-10-05 Completed [facility] of Vaccine Quad IM, 00:00:00 [facility] dical Preserv and ABX Branch Free 6 MO-64 YRS Pneumococcal 13 2021-10-05 Completed [facility] of Conjugate, PCV13 00:00:00 [facility] dical (Prevnar 13) Malcolm Influenza Virus 2021-10-05 Completed [facility]it [facility] of Vaccine Quad IM, 00:00:00 [facility] dical Preserv and ABX Branch Free 6 MO-64 YRS Pneumococcal 13 2021-10-05 Completed [facility]it [facility] of Conjugate, PCV13 00:00:00 [facility] dical (Prevnar 13) Malcolm Influenza Virus 2021-10-05 Completed Universit y of Vaccine Quad IM, 00:00:00 [facility] dical Preserv and ABX Branch Free 6 MO-64 YRS Pneumococcal 13 2021-10-05 Completed [facility]it [facility] of Conjugate, PCV13 00:00:00 [facility] dical (Prevnar 13) [place] Influenza Virus 2021-10-05 Completed Universit y of Vaccine Quad IM, 00:00:00 [facility] dical Preserv and ABX Branch Free 6 MO-64 YRS Pneumococcal 13 2021-10-05 Completed [facility]it [facility] of Conjugate, PCV13 00:00:00 [facility] dical (Prevnar 13) [place] Influenza Virus 2021-10-05 Completed Universit y of Vaccine Quad IM, 00:00:00 [facility] dical Preserv and ABX Branch Free 6 MO-64 YRS Pneumococcal 13 2021-10-05 Completed [facility]it [facility] of Conjugate, PCV13 00:00:00 [place] [facility]ical (Prevnar 13) Branch Influenza Virus 2021-10-05 Completed [facility]it [facility] of Vaccine Quad IM, 00:00:00 [place] [facility] Preserv and ABX Branch Free 6 MO-64 YRS Pneumococcal 13 2021-10-05 Completed [facility]it [facility] of Conjugate, PCV13 00:00:00 [place] [facility] (Prevnar 13) Branch Influenza Virus 2021-10-05 Completed [facility]it [facility] of Vaccine Quad IM, 00:00:00 [place] [facility] Preserv and ABX Branch Free 6 MO-64 YRS Pneumococcal 13 2021-10-05 Completed [facility] of Conjugate, PCV13 00:00:00 [place] [facility] (Prevnar 13) Branch Influenza Virus 2021-10-05 Completed [facility]it [facility] of Vaccine Quad IM, 00:00:00 [place] [facility] dical Preserv and ABX Branch Free 6 MO-64 YRS Pneumococcal 13 2021-10-05 Completed Universit [facility] of Conjugate, PCV13 00:00:00 [place] [facility]ical (Prevnar 13) Branch Influenza Virus 2021-10-05 Completed Universit y of Vaccine Quad IM, 00:00:00 [place] [facility] dical Preserv and ABX Branch Free 6 MO-64 YRS Pneumococcal 13 2021-10-05 Completed Universit y of Conjugate, PCV13 00:00:00 [place] [facility] (Prevnar 13) Branch Influenza Virus 2021-10-05 Completed Universit y of Vaccine Quad IM, 00:00:00 [place] [facility] dical Preserv and ABX Branch Free 6 MO-64 YRS Pneumococcal 13 2021-10-05 Completed Universit y of Conjugate, PCV13 00:00:00 [place] [facility]ical (Prevnar 13) Branch Influenza Virus 2021-10-05 Completed Universit y of Vaccine Quad IM, 00:00:00 [place] [facility] dical Preserv and ABX Branch Free 6 MO-64 YRS Pneumococcal 13 2021-10-05 Completed Universit y of Conjugate, PCV13 00:00:00 [place] [facility] dical (Prevnar 13) Branch Influenza Virus 2021-10-05 Completed Universit y of Vaccine Quad IM, 00:00:00 [place] [facility] dical Preserv and ABX Branch Free 6 MO-64 YRS Pneumococcal 13 2021-10-05 Completed Universit y of Conjugate, PCV13 00:00:00 [place] [facility] dical (Prevnar 13) Branch Influenza Virus 2021-10-05 Completed Universit y of Vaccine Quad IM, 00:00:00 [place] [facility] dical Preserv and ABX Branch Free 6 MO-64 YRS SARS-COV-2 COVID-19 2020-12-30 Completed Unive rsity of PFIZER VACCINE 00:00:00 [facility] Branch SARS-COV-2 COVID-19 2020-12-30 Completed Unive rsity of PFIZER VACCINE 00:00:00 [facility] Branch SARS-COV-2 COVID-19 2020-12-30 Completed Unive rsity of PFIZER VACCINE 00:00:00 [facility] Branch SARS-COV-2 COVID-19 2020-12-30 Completed Unive rsity of PFIZER VACCINE 00:00:00 [facility] SARS-COV-2 COVID-19 2020-12-30 Completed Unive rsity of PFIZER VACCINE 00:00:00 [facility] Branch SARS-COV-2 COVID-19 2020-12-30 Completed Unive rsity of PFIZER VACCINE 00:00:00 [facility] Branch SARS-COV-2 COVID-19 2020-12-30 Completed Unive rsity of PFIZER VACCINE 00:00:00 [facility] Branch SARS-COV-2 COVID-19 2020-12-30 Completed Unive rsity of PFIZER VACCINE 00:00:00 [facility] SARS-COV-2 COVID-19 2020-12-30 Completed Unive rsity of PFIZER VACCINE 00:00:00 [facility] Branch SARS-COV-2 COVID-19 2020-12-30 Completed Unive rsity of PFIZER VACCINE 00:00:00 [facility] SARS-COV-2 COVID-19 2020-12-30 Completed Unive rsity of PFIZER VACCINE 00:00:00 [facility] SARS-COV-2 COVID-19 2020-12-30 Completed Unive rsity of PFIZER VACCINE 00:00:00 [facility] SARS-COV-2 COVID-19 2020-12-30 Completed Unive rsity of PFIZER VACCINE 00:00:00 [facility] SARS-COV-2 COVID-19 2020-12-10 Completed Unive rsity of PFIZER VACCINE 00:00:00 [facility] SARS-COV-2 COVID-19 2020-12-10 Completed Unive rsity of PFIZER VACCINE 00:00:00 [facility] Branch SARS-COV-2 COVID-19 2020-12-10 Completed Unive rsity of PFIZER VACCINE 00:00:00 [facility] SARS-COV-2 COVID-19 2020-12-10 Completed Unive rsity of PFIZER VACCINE 00:00:00 [facility] Branch SARS-COV-2 COVID-19 2020-12-10 Completed Unive rsity of PFIZER VACCINE 00:00:00 [facility] SARS-COV-2 COVID-19 2020-12-10 Completed Unive rsity of PFIZER VACCINE 00:00:00 [facility] SARS-COV-2 COVID-19 2020-12-10 Completed Unive rsity of PFIZER VACCINE 00:00:00 [facility] SARS-COV-2 COVID-19 2020-12-10 Completed Unive rsity of PFIZER VACCINE 00:00:00 [facility] SARS-COV-2 COVID-19 2020-12-10 Completed Unive rsity of PFIZER VACCINE 00:00:00 [facility] SARS-COV-2 COVID-19 2020-12-10 Completed Unive rsity of PFIZER VACCINE 00:00:00 [facility] SARS-COV-2 COVID-19 2020-12-10 Completed Unive rsity of PFIZER VACCINE 00:00:00 [facility] SARS-COV-2 COVID-19 2020-12-10 Completed Unive rsity of PFIZER VACCINE 00:00:00 [facility] SARS-COV-2 COVID-19 2020-12-10 Completed Unive rsity of PFIZER VACCINE 00:00:00 [facility] Influenza Virus 2020-05-12 Completed [facility] Vaccine Quad .5 mL 00[facility]00:00 [facility] IM 6+ [facility] Influenza Virus 2020-05-12 Completed [facility] Vaccine Quad .5 mL 00:00:00 [facility] IM 6+ [facility] Influenza Virus 2020-05-12 Completed [facility] Vaccine Quad .5 mL 00:00:00 [facility] IM 6+ [facility] Influenza Virus 2020-05-12 Completed [facility] Vaccine Quad .5 mL 00:00:00 [facility] IM 6+ [facility] Influenza Virus 2020-05-12 Completed [facility] Vaccine Quad .5 mL 00:00:00 [facility] IM 6+ [facility] Influenza Virus 2020-05-12 Completed [facility] Vaccine Quad .5 mL 00:00:00 [facility] IM 6+ [facility] Influenza Virus 2020-05-12 Completed [facility] Vaccine Quad .5 mL 00:00:00 [facility] IM 6+ [facility] Influenza Virus 2020-05-12 Completed [facility] Vaccine Quad .5 mL 00:00:00 [facility] 6+ MO [facility] Influenza Virus 2020-05-12 Completed Universit y of Vaccine Quad .5 mL 00:00:00 [facility] 6+ MO [facility] Influenza Virus 2020-05-12 Completed Universit y of Vaccine Quad .5 mL 00:00:00 [facility] 6+ MO Branch Influenza Virus 2020-05-12 Completed Universit y of Vaccine Quad .5 mL 00:00:00 [facility] 6+ MO Branch Influenza Virus 2020-05-12 Completed Universit y of Vaccine Quad .5 mL 00:00:00 [facility] 6+ MO Branch Influenza Virus 2020-05-12 Completed Universit y of Vaccine Quad .5 mL 00:00:00 [facility] 6+ MO Branch Pneumococcal 2019-10-28 Completed University o f Polysaccharide, 00:00:00 [place] [facility] PPSV23 (PNEUMOVAX) Malcolm Influenza Virus 2019-10-28 Completed Universit y of Vaccine Quad .5 mL 00:00:00 [facility] 6+ MO Branch Pneumococcal 2019-10-28 Completed University o f Polysaccharide, 00:00:00 [place] [facility] PPSV23 (PNEUMOVAX) Branch Influenza Virus 2019-10-28 Completed Universit y of Vaccine Quad .5 mL 00:00:00 [facility] 6+ MO Branch Pneumococcal 2019-10-28 Completed University o f Polysaccharide, 00:00:00 [place] [facility] PPSV23 (PNEUMOVAX) Branch Influenza Virus 2019-10-28 Completed Universit y of Vaccine Quad .5 mL 00:00:00 [facility] 6+ MO Branch Pneumococcal 2019-10-28 Completed University o f Polysaccharide, 00:00:00 [place] [facility] PPSV23 (PNEUMOVAX) Malcolm Influenza Virus 2019-10-28 Completed Universit y of Vaccine Quad .5 mL 00:00:00 [facility] 6+ MO Branch Pneumococcal 2019-10-28 Completed University o f Polysaccharide, 00:00:00 [place] [facility] PPSV23 (PNEUMOVAX) Branch Influenza Virus 2019-10-28 Completed Universit y of Vaccine Quad .5 mL 00:00:00 [facility] 6+ MO Branch Pneumococcal 2019-10-28 Completed University o f Polysaccharide, 00:00:00 [place] [facility] PPSV23 (PNEUMOVAX) Branch Influenza Virus 2019-10-28 Completed Universit y of Vaccine Quad .5 mL 00:00:00 [facility] 6+ MO Branch Pneumococcal 2019-10-28 Completed University o f Polysaccharide, 00:00:00 [place] [facility] PPSV23 (PNEUMOVAX) Branch Influenza Virus 2019-10-28 Completed Universit y of Vaccine Quad .5 mL 00:00:00 [facility] 6+ MO Branch Pneumococcal 2019-10-28 Completed University o f Polysaccharide, 00:00:00 [place] [facility] PPSV23 (PNEUMOVAX) Branch Influenza Virus 2019-10-28 Completed Universit y of Vaccine Quad .5 mL 00:00:00 [facility] 6+ MO Branch Pneumococcal 2019-10-28 Completed University o f Polysaccharide, 00:00:00 [place] [facility] PPSV23 (PNEUMOVAX) Branch Influenza Virus 2019-10-28 Completed Universit y of Vaccine Quad .5 mL 00:00:00 [facility] 6+ MO Branch Pneumococcal 2019-10-28 Completed University o f Polysaccharide, 00:00:00 [place] [facility] PPSV23 (PNEUMOVAX) Branch Influenza Virus 2019-10-28 Completed Universit y of Vaccine Quad .5 mL 00:00:00 [facility] 6+ MO Branch Pneumococcal 2019-10-28 Completed University o f Polysaccharide, 00:00:00 [place] [facility] PPSV23 (PNEUMOVAX) Branch Influenza Virus 2019-10-28 Completed Universit y of Vaccine Quad .5 mL 00:00:00 [facility] 6+ MO [facility] Pneumococcal 2019-10-28 Completed University o f Polysaccharide, 00:00:00 [place] [facility] PPSV23 (PNEUMOVAX) Branch Influenza Virus 2019-10-28 Completed Universit y of Vaccine Quad .5 mL 00:00:00 [facility] 6+ MO Branch Pneumococcal 2019-10-28 Completed University o f Polysaccharide, 00:00:00 [place] [facility] PPSV23 (PNEUMOVAX) Malcolm Influenza Virus 2019-10-28 Completed Universit y of Vaccine Quad .5 mL 00:00:00 [facility] 6+ MO Malcolm Influenza Virus 2018-05-07 Completed Universit y of Vaccine 00:00:00 [facility] Influenza Virus 2018-05-07 Completed Universit y of Vaccine 00:00:00 [facility] Influenza Virus 2018-05-07 Completed Universit y of Vaccine 00:00:00 [facility] Influenza Virus 2018-05-07 Completed Universit y of Vaccine 00:00:00 [facility] Influenza Virus 2018-05-07 Completed Universit y of Vaccine 00:00:00 [facility] Influenza Virus 2018-05-07 Completed Universit y of Vaccine 00:00:00 [facility] Influenza Virus 2018-05-07 Completed Universit y of Vaccine 00:00:00 [facility] Influenza Virus 2018-05-07 Completed Universit y of Vaccine 00:00:00 [facility] Influenza Virus 2018-05-07 Completed Universit y of Vaccine 00:00:00 [facility] Influenza Virus 2018-05-07 Completed Universit y of Vaccine 00:00:00 [facility] Influenza Virus 2018-05-07 Completed Universit y of Vaccine 00:00:00 [facility] Influenza Virus 2018-05-07 Completed Universit y of Vaccine 00:00:00 [facility] Influenza Virus 2018-05-07 Completed Universit y of Vaccine 00:00:00 [facility] TDAP 2017-04-14 Completed University of 00:00:00 [facility] TDAP 2017-04-14 Completed University of 00:00:00 [facility] TDAP 2017-04-14 Completed University of 00:00:00 [facility] TDAP 2017-04-14 Completed University of 00:00:00 [facility] TDAP 2017-04-14 Completed University of 00:00:00 [facility] TDAP 2017-04-14 Completed University of 00:00:00 [facility] TDAP 2017-04-14 Completed University of 00:00:00 [facility] TDAP 2017-04-14 Completed University of 00:00:00 [facility] TDAP 2017-04-14 Completed University of 00:00:00 [facility] TDAP 2017-04-14 Completed University of 00:00:00 [facility] TDAP 2017-04-14 Completed University of 00:00:00 [facility] TDAP 2017-04-14 Completed University 00:00:00 [facility] TDAP 2017-04-14 Completed University of 00:00:00 [facility] Pneumococcal Unknown Completed University o f Polysaccharide, [place] [facility] PPSV23 (PNEUMOVAX) Branch Influenza Virus Unknown Completed Universit y of Vaccine Quad .5 mL [facility] IM 6+ MO Branch (FLUZONE/FLULAVAL/F LUARIX) Influenza Virus Unknown Completed Universit y of Vaccine [facility] Influenza Virus Unknown Completed Universit y of Vaccine Quad .5 mL [facility] IM 6+ MO Branch (FLUZONE/FLULAVAL/F LUARIX) TDAP Unknown Completed [facility] SARS-COV-2 COVID-19 Unknown Completed Unive rsity of PFIZER VACCINE [facility] SARS-COV-2 COVID-19 Unknown Completed Unive rsity of PFIZER VACCINE [facility] Influenza Virus Unknown Completed Universit y of Vaccine Quad IM, [facility] dical Preserv and ABX Branch Free 6 MO-64 YRS (FLUCELVAX) Pneumococcal 13 Unknown Completed Universit y of Conjugate, PCV13 [facility] dical (Prevnar 13) Branch Influenza Virus Unknown Completed Universit y of Vaccine [facility] Pneumococcal Unknown Completed University o f Polysaccharide, [place] [facility] PPSV23 (PNEUMOVAX) Branch Influenza Virus Unknown Completed Universit y of Vaccine Quad .5 mL [facility] 6+ MO Branch (FLUZONE/FLULAVAL/F LUARIX) Influenza Virus Unknown Completed Universit y of Vaccine [facility] Influenza Virus Unknown Completed Universit y of Vaccine Quad .5 mL [facility] 6+ MO Branch (FLUZONE/FLULAVAL/F LUARIX) TDAP Unknown Completed [facility] SARS-COV-2 COVID-19 Unknown Completed Unive rsity of PFIZER VACCINE [facility] SARS-COV-2 COVID-19 Unknown Completed Unive rsity of PFIZER VACCINE [facility] Influenza Virus Unknown Completed Universit y of Vaccine Quad IM, [facility] dical Preserv and ABX Branch Free 6 MO-64 YRS (FLUCELVAX) Pneumococcal 13 Unknown Completed Universit y of Conjugate, PCV13 [facility] dical (Prevnar 13) Branch Influenza Virus Unknown Completed Universit y of Vaccine [facility] Pneumococcal Unknown Completed University o f Polysaccharide, [facility] ical PPSV23 (PNEUMOVAX) Branch Influenza Virus Unknown Completed Universit y of Vaccine Quad .5 mL [facility] IM 6+ MO Branch (FLUZONE/FLULAVAL/F LUARIX) Influenza Virus Unknown Completed Universit y of Vaccine [facility] Influenza Virus Unknown Completed Universit y of Vaccine Quad .5 mL [facility] IM 6+ MO Branch (FLUZONE/FLULAVAL/F LUARIX) TDAP Unknown Completed [facility] SARS-COV-2 COVID-19 Unknown Completed Unive rsity of PFIZER VACCINE [facility] SARS-COV-2 COVID-19 Unknown Completed Unive rsity of PFIZER VACCINE [facility] Branch Pneumococcal Unknown Completed University o f Polysaccharide, [facility] ical PPSV23 (PNEUMOVAX) Branch Influenza Virus Unknown Completed Universit y of Vaccine Quad .5 mL [facility] 6+ MO Branch (FLUZONE/FLULAVAL/F LUARIX) Influenza Virus Unknown Completed Universit y of Vaccine [facility] Influenza Virus Unknown Completed Universit y of Vaccine Quad .5 mL [facility] 6+ MO Branch (FLUZONE/FLULAVAL/F LUARIX) TDAP Unknown Completed [facility] Vital Signs Vital Name Observation Time Observation Value Comments Source Systolic blood 2022-09-18 15:11:00 137 mm[Hg] Univer sity of pressure [facility] Diastolic blood 2022-09-18 15:11:00 89 mm[Hg] Unive rsity of pressure [facility] Heart rate 2022-09-18 15:10:00 80 /min [facility] Body temperature 2022-09-18 15:10:00 36.67 Dalila [facility] Respiratory rate 2022-09-18 15:10:00 17 /min [facility] Body height 2022-09-18 15:10:00 172.7 cm [facility] Body weight 2022-09-18 15:10:00 73.483 kg [facility] BMI 2022-09-18 15:10:00 24.63 kg/m2 [facility] Oxygen saturation in 2022-09-18 15:10:00 100 /min [facility] Arterial blood by [facility] Pulse oximetry Branch Systolic blood 2022-08-31 22:31:00 153 mm[Hg] Univer sity of pressure [facility] Diastolic blood 2022-08-31 22:31:00 92 mm[Hg] Unive rsity of pressure [facility] Heart rate 2022-08-31 22:30:00 66 /min Universi ty of [facility] Body temperature 2022-08-31 22:30:00 36.72 Dalila Univ ersity of [facility] Body height 2022-08-31 22:30:00 172.7 cm Universi ty of [facility] Body weight 2022-08-31 22:30:00 73.936 kg Universi ty of [facility] BMI 2022-08-31 22:30:00 24.78 kg/m2 Universi ty of [facility] Oxygen saturation in 2022-08-31 22:30:00 100 /min University of Arterial blood by [facility] Pulse oximetry Branch Systolic blood 2022-07-12 15:22:00 135 mm[Hg] Univer sity of pressure [facility] Diastolic blood 2022-07-12 15:22:00 91 mm[Hg] Unive rsity of pressure [facility] Heart rate 2022-07-12 15:22:00 80 /min Universi ty of [facility] Body temperature 2022-07-12 15:22:00 36.83 Dalila Univ ersity of [facility] Respiratory rate 2022-07-12 15:22:00 17 /min Univ ersity of [facility] Body height 2022-07-12 15:22:00 172.7 cm Universi ty of [facility] Body weight 2022-07-12 15:22:00 75.496 kg [facility]i ty of [facility] BMI 2022-07-12 15:22:00 25.31 kg/m2 Universi ty of [facility] Oxygen saturation in 2022-07-12 15:22:00 99 /min University of Arterial blood by [place] [facility] Pulse oximetry Branch Systolic blood 2021-12-24 16:35:00 136 mm[facility]Hg[facility] Diastolic blood 2021-12-24 16:35:00 84 mm[Hg] [facility] Heart rate 2021-12-24 16:35:00 71 [facility] 2021-12-24 16:35:00 [facility]7 [facility] Body weight 2021-12-24 16:35:00 [facility]308 [facility] BMI 2021-12-24 16:35:00 23.57 [facility] Systolic blood 2021-11-05 16:34:00 124 mm[Hg] [facility] Diastolic blood 2021-11-05 16:34:00 83 mm[Hg] [facility] Heart rate 2021-11-05 16:34:00 72 /min [facility] height 2021-11-05 16:34:00 [facility]7 [facility] Body weight 2021-11-05 16:34:00 [facility]308 [facility] BMI 2021-11-05 16:34:00 23.57 [facility] Systolic blood 2021-10-18 21:11:00 137 mm[Hg] Univer sity of [facility] Diastolic blood 2021-10-18 21:11:00 86 mm[Hg] Unive rsity of [facility] Heart rate 2021-10-18 21:11:00 76 /min [facility] Body temperature 2021-10-18 21:11:00 36.06 Dalila [facility] Respiratory rate 2021-10-18 21:11:00 18 /min [facility] Body height 2021-10-18 21:11:00 174 cm [facility] Body weight 2021-10-18 21:11:00 72.848 kg [facility] BMI 2021-10-18 21:11:00 24.06 kg/m2 [facility] Oxygen saturation in 2021-10-18 21:11:00 100 /min [facility] Arterial blood by [facility] Pulse oximetry Branch Heart Rate 2023-04-25 15:14:00 Mario Mcfarland Systolic (mm Hg) 2023-04-25 15:14:00 Ruperto Mcfarland Diastolic (mm Hg) 2023-04-25 15:14:00 [facility] nadeem Mcfarland Height 2023-04-25 15:14:00 5 [ft_i] Mario Mcfarland Weight 2023-04-25 15:14:00 [facility] BMI Calculated 2023-04-25 15:14:00 [facility] [place] Temperature Oral (F) 2017-01-05 12:15:00 98.0 F [facility] Systolic (mm Hg) 2017-01-05 12:15:00 Ruperto rial [place] Diastolic (mm Hg) 2017-01-05 12:15:00 Mem [facility] Systolic (mm Hg) 2017-01-05 11:04:00 Ruperto rial [place] Diastolic (mm Hg) 2017-01-05 11:04:00 Mem orial [place] Systolic (mm Hg) 2017-01-05 09:00:00 Ruperto rial [place] Diastolic (mm Hg) 2017-01-05 09:00:00 Mem orial [place] Temperature Oral (F) 2017-01-05 00:30:00 99 F [facility] Respitory Rate 2017-01-04 20:30:00 [facility] Respitory Rate 2017-01-04 20:15:00 [facility] Respitory Rate 2017-01-04 20:00:00 [facility] Height 2017-01-04 13:48:00 173.99 cm [facility] BMI Calculated 2017-01-04 13:48:00 [facility] [place] Weight 2017-01-04 13:48:00 [facility] BMI Calculated 2017-01-03 13:38:00 [facility] Height 2017-01-03 13:38:00 172.72 cm [facility] Weight 2017-01-03 13:38:00 [facility] Procedures Procedure Date / Time Performing Clinician Source Performed POCT MOLECULAR STREP 2022-09-18 15:18:00 Unknown, Attending [facility] FREE T4 2022-09-01 15:19:00 General acute hospital THYROID STIMULATING 2022-09-01 15:19:00 [facility] HORMONE [facility] COMP. METABOLIC PANEL 2022-09-01 15:19:00 [facility] ([id number][facility] LIP[facility] PANEL 2022-09-01 15:19:00 [facility] ([id number])(TOTAL [facility] CHOLESTEROL, TRIGLYCERIDES, HDL) CBC WITH DIFF 2022-09-01 15:19:00 [facility] o f [place] Inessa [facility] GLYCOSYLATED HEMOGLOBIN 2022-09-01 15:19:00 [facility] (A1C) Inessa [facility] ASSIGNMENT OF BENEFITS 2022-07-12 15:11:56 Doctor Unassigned, No [facility] MISC - NON-LEGAL REC 2021-12-06 05:01:00 Doctor Unassigned, No [facility] POCT URINALYSIS AUTO 2021-10-18 21:18:00 Lori Damon [facility] Endometrial thermal [facility] ablation Abdominal hysterectomy [facility] Encounters Start End Encounter Admission Attending Care Care Encounter Source Date/Time Date/Time Type Type Clinicians Facility Department ID 2023-10-25 2023-10-25 Outpatient MHIE MHIE [id number] Memoria 09:30:00 09:30:00 02 [facility] 2023-10-25 2023-10-25 Outpatient MHIE MHIE [id number] Memoria 09:30:00 09:30:00 02 [facility] 2023-06-14 2023-06-14 Outpatient GC_[id number] PRIV PRIV [id number] [facility] 00:00:00 00:00:00 gurwinder_Emile [id number] [facility] 2023-05-22 2023-05-22 Ambulatory MHIE MHMG [id number] Memoria 15:30:00 15:30:00 Pre-Reg Cardiology 01 [facility] 2023-05-22 2023-05-22 Outpatient MHIE MHIE [id number] Memoria 10:30:00 10:30:00 01 [facility] 2023-05-22 2023-05-22 Outpatient MHIE MHIE [id number] Memoria 10:30:00 10:30:00 01 [facility] 2023-05-22 2023-05-22 Outpatient VISIT, [facility] MHMG [id number] 10:30:00 10:30:00 US2 2023-05-04 2023-05-04 Telephone [facility] 1.2.840.114 [id number] [facility] 00:00:00 00:00:00 , [place] [id number] ity of Teagan CROOKS [id number] Gus as BEN?BLEA [phone] Mi yoana [address] MEDICAL OFFICE BUILDING 2023-04-27 2023-04-28 Outpatient MHIE MG [id number] Memoria 14:15:00 04:59:59 Cardiology 03 [facility] 2023-04-27 2023-04-28 Outpatient MHIE MG [id number] Memoria 14:15:00 04:59:59 Cardiology 03 [facility] 2023-04-27 2023-04-27 [facility] [id number] 09:15:00 23:59:59 NURSE 03 HOLTER PACEMAKE 2023-04-27 2023-04-27 Outpatient MHIE IE [id number] Memoria 09:15:00 09:15:00 03 [facility] 2023-04-25 2023-04-26 Outpatient MHIE MG [id number] Memoria 14:15:00 04:59:59 Cardiology 00 [facility] 2023-04-25 2023-04-26 Outpatient MHIE MG [id number] Memoria 14:15:00 04:59:59 Cardiology 00 [facility] 2023-04-25 2023-04-25 Outpatient [place], [facility] [id number] 09:15:00 23:59:59 Farhan Gene 00 2023-04-25 2023-04-25 Outpatient MHIE IE [id number] Memoria 09:15:00 09:15:00 00 [facility] 2022-12-08 2022-12-08 Outpatient Sridevi CLANCY [facility] [id number] Univers 00:00:00 00:00:00 , INESSA it y of [facility] 2022-12-07 2022-12-07 Patient Julieth CELISIN 1.2.840.114 [id number] Univers 00:00:00 00:00:00 Secure Inessa Gonzales PEDIATRIC [id number] ity of [id number] [phone] [address] 2022-11-292022-11-29 Outpatient R JULIETH [facility] [id number] Univers 16:15:00 16:15:00 , INESSA quigley y of [facility] 2022-09-30 2022-09-30 Jules Spears [facility] 1.2.840.114 [id number] Univers 00:00:00 00:00:00 Wondiful A HEALTH [id number] ity [facility] [id number] Gus as BEN?BLEA [phone] Mi yoana BECERRA [address] [place] [address] MEDICAL OFFICE BUILDING 2022-09-18 2022-09-18 Outpatient R ANDRES [facility] [id number] Univers 09:20:00 09:50:06 SHINRADHA quigleygeovanni [facility] 2022-09-18 2022-09-18 [facility]gent [facility] 1.2.840.11 [id number] Univers 09:20:00 09:50:06 Care Unknown, Attending HEALTH [id number] ity of [place] [id number] Gus as BEN?BLEA [phone] [facility] [address] MEDICAL OFFICE BUILDING 2022-09-01 2022-09-01 [facility], Peng - Darron [facility] 1.2.840.1 [id number] Univers 09:00:00 09:49:14 Visit Inessa Clancy [facility] 350.1 .13.10 ity of [facility] [id number] Gus as BEN?BLEA [id number] Mi yoana [facility] [address] MEDICAL OFFICE BUILDING 2022-09-01 2022-09-01 Outpatient R JULIETH [facility] [id number] Univers 09:00:00 09:00:00 , INESSA quigley y of [facility] 2022-08-31 2022-08-31 Outpatient R JULIETH [facility] [id number] Univers 16:30:00 16:50:46 , INESSA quigley y of [facility] 2022-08-31 2022-08-31 Office [facility] 1.2.840.114 [id number] Univers 16:30:00 16:50:46 Visit Inessa [facility] [id number] ity of Teagan [place] [id number] Gus as BEN?BLEA [phone] Mi yoana [facility] [address] MEDICAL OFFICE [facility] 2022-07-12 2022-07-12 Judith Kaplan [facility] 1.2.840.114 [id number] Univers 09:20:00 09:40:00 Care Unknown, Attending HEALTH [id number] ity of [place] [id number] Gus as BEN?BLEA [phone] [facility] [address] MEDICAL OFFICE [facility] 2022-07-12 2022-07-12 Outpatient R HAMZAH [facility] [id number] Univers 09:20:00 09:20:00 JUDITH ity [facility] 2022-07-12 2022-07-12 Orders Doctor THERESA 1.2.840.114 [id number] Univers 00:00:00 00:00:00 Only Unassigned, PIPER [id number] ity of [facility] [id number] Gus as [phone] [address] 2022-07-12 2022-07-12 [facility] 1.2.840.114 [id number] Univers 00:00:00 00:00:00 (Out) [facility] [id number] it y of [place] [id number] Gus as BEN?BLEA [id number] [address] MEDICAL OFFICE [facility] 2022-03-01 2022-03-01 Outpatient CURLY DELGADO [facility] [id number] Univers 09:00:00 09:00:00 ity of [facility] 2022-03-01 2022-03-01 Outpatient CURLY DELGDAO [facility] [id number] Univers 09:00:00 09:00:00 ity of [facility] 2021-12-24 2021-12-24 Office Hematpomarkos, WILFREDO 6400 1.2.840.114 [id number] [place] 11:15:00 12:01:36 Visit Stephany TAYLOR [id number] Health 9.2.7.2.686 [id number] 2021-12-06 2021-12-06 [facility] 1.2.840.114 [id number] Univers 00:00:00 00:00:00 Wondiful A HEALTH [id number] ity of [place] [id number] Gus as BEN?BLEA [id number] Mi yoana BECERRA [address] [place] [address] MEDICAL OFFICE BUILDING 2021-12-06 2021-12-06 Orders Doctor THERESA 1.2.840.114 [id number] Univers 00:00:00 00:00:00 Only Unassigned, PIPER [id number] ity of [facility] [id number] Gus as [phone] [address] 2021-11-29 2021-11-29 Outpatient R COLTON [facility] [id number] Univers 10:30:00 10:30:00 [facility] 2021-11-23 2021-11-23 Telephone Hematpour, UTP 6400 1.2.840.114 [id number] [place] 00:00:00 00:00:[address] [id number] Health 9.2.7.2.686 [id number] 1 2021-11-05 2021-11-05 Office Hematpour, UTP 6400 1.2.840.114 [id number] [place] 11:15:00 12:14:[address]id [address] [id number] Health 9.2.7.2.686 [id number] 1 2021-10-18 2021-10-18 Outpatient R BRAYAN [facility] [id number] Univers 15:00:00 15:33:24 LORI ferreira [facility] 2021-10-18 2021-10-18 Office Brayan [facility] 1.2.840.114 [id number] Univers 15:00:00 15:33:24 Visit Lori Stacy [place] [id number] ity of [place] [id number] Mi yoana LORA [address] [facility] 2021-10-18 2021-10-18 Outpatient R BRAYAN [facility] [id number] Univers 15:00:00 15:33:24 LORI jhon [facility] 2021-10-12 2021-10-12 Outpatient R TORY [facility] [id number] Univers 16:24:06 23:59:00 WONDIFUL ity o f [facility] 2021-10-12 2021-10-12 Orders Doctor THERESA 1.2.840.114 [id number] Univers 00:00:00 00:00:00 Only Unassigned, PIPER [id number] ity of [facility] [id number] Gus as [phone] [address] 2021-10-05 2021-10-05 [facility] [id number] Univers 11:00:00 11:47:16 WONDIFUL ity o f [facility] 2021-09-07 2021-09-07 [facility] 1.2.840.114 [id number] Univers 00:00:00 00:00:00 Wondiful A HEALTH [id number] ity of [place] [id number] Gus as BEN?BLEA [phone] [address] OFFICE [facility] 2021-08-31 2021-08-31 [facility] 1.2.840.114 [id number] Univers 00:00:00 00:00:00 Wondiful A HEALTH [id number] ity of [place] [id number] Gus as BEN?BLEA [id number] [address] OFFICE [facility] 2021-08-18 2021-08-18 [facility]phone [facility] 1.2.840.114 [id number] Univers 00:00:00 00:00:00 Wondiful A HEALTH 350.1.13.10 ity of [place] 4.2.7.2.686 Gus as BEN?BLEA [phone] [address] OFFICE [facility] 2021-08-17 2021-08-17 Telephone [facility] 1.2.840.114 [id number] Univers 00:00:00 00:00:00 Wondiful A HEALTH 350.1.13.10 ity of [place] 4.2.7.2.686 Gus as BEN?BLEA [phone] [address] OFFICE [facility] 2021-08-16 2021-08-16 Outpatient R HAMZAH [facility] [id number] Univers 10:30:00 11:03:03 JUDITH ity of [facility] 2021-08-16 2021-08-16 Laboratory Only, Ang Db Test [facility] 1.2.8 40.114 [id number] Univers 10:30:00 10:45:00 Only Judith Almeida HEALTH 350.1.13.10 ity of [place] 4.2.7.2.686 Gus as BEN?BLEA [phone] [facility] [address] [facility] OFFICE [facility] 2021-07-02 2021-07-02 [facility]ill [facility] 1.2.840.114 [id number] Univers 00:00:00 00:00:00 Wondiful A HEALTH 350.1.13.10 ity of [place] 4.2.7.2.686 Gus as BEN?BLEA [phone] [address] OFFICE [facility] 2021-05-03 2021-05-03 [facility] 1.2.840.114 [id number] Univers 00:00:00 00:00:00 Wondiful A Health 350.1.13.10 ity of [place] 4.2.7.2.686 Gus as Ben?Blea [phone] [address] Office [facility] 2021-04-27 2021-04-27 Office [facility] 1.2.840.114 [id number] Univers 14:24:49 14:57:17 Visit Tuan Health 350.1.13.10 it y of [place] 4.2.7.2.686 Gus as Ben?Blea [phone] [address] Office [facility] 2021-04-27 2021-04-27 Outpatient R CARMEN [facility] [id number] Univers 14:30:00 14:30:00 TUAN quigleyy of [facility] 2021-04-01 2021-04-01 Outpatient R TORY, [facility] [id number] Univers 16:30:00 16:30:00 WONDIFUL ity o f [facility] 2021-03-29 2021-03-29 Patient Doctor THERESA 1.2.840.114 [id number] Univers 00:00:00 00:00:00 Secure Msg UnassignedPIPER 350.1.13.10 ity of [facility] 4.2.7.2.686 Gus as [phone] [address] 2021-03-29 2021-03-29 Letter THERESA Jordan 1.2.840.114 [id number] Univers 00:00:00 00:00:00 (Out) Safia Resendiz PIPER 350.1.13.10 it y of HOSPITAL 4.2.7.2.686 Gus as [phone] [address] 2021-03-26 2021-03-26 Urgent CorinateaganSmitha [facility] 1.2.840.114 [id number] Univers 16:21:45 16:41:45 Constantine Dean [facility] 350.1.1 3.10 ity of [place] 4.2.7.2.686 Gus as Professio [phone] [address] Office [facility] One 2021-03-26 2021-03-26 Outpatient R NOHEMI [facility] [id number] Univers 16:20:00 16:20:00 CONSTANTINE Baptiste it y of [facility] 2021-02-25 2021-02-25 Outpatient R CURLY MCMILLAN [facility] [id number] Univers 09:00:00 09:00:00 ity of [facility] 2021-02-25 2021-02-25 [facility] 1.2.840.114 [id number] Univers 00:00:00 00:00:00 Wondiful A Health 350.1.13.10 ity of [place] 4.2.7.2.686 Gus as Professio [phone] [address] Office [facility] One 2020-12-30 2020-12-30 Outpatient Sridevi YBARRA [facility] [id number] Univers 17:20:00 17:20:00 [facility] 2020-12-30 2020-12-30 Outpatient Sridevi YBARRA [facility] [id number] Univers 09:50:00 09:50:[facility] 2020-12-30 2020-12-30 Outpatient Sridevi YBARRA [facility] [id number] Univers 08:20:00 08:20:00 [facility] 2020-12-10 2020-12-10 Outpatient Sridevi THOMPSON [facility] [id number] Univers 09:30:00 09:30:00 DALJIT [facility] 2020-12-04 2020-12-04 Patient Doctor THERESA 1.2.840.114 [id number] Univers 00:00:00 00:00:00 Secure Msg Unassigned, PIPER 350.1.13.10 ity of [facility] 4.2.7.2.686 Gus as [phone] [address] 2020-12-03 2020-12-03 Telephone Tory [facility] 1.2.840.114 [id number] Univers 00:00:00 00:00:00 Wondiful A Health 350.1.13.10 ity of [place] 4.2.7.2.686 Gus as Professio [phone] [address] One 2020-12-02 2020-12-02 Case Tory [facility] 1.2.840.114 [id number] Univers 00:00:00 00:00:00 Management Wondiful A Health 350.1.13.10 ity of [place] 4.2.7.2.686 Gus as Professio [phone] [address] One 2020-11-27 2020-11-27 Outpatient R TORY [facility] [id number] Univers 09:00:00 09:00:00 WONDIFUL ity o f [facility] 2020-11-27 2020-11-27 Skid Man Lab, Adc Fam Pob I [facility] 1.2. 840.114 [id number] Univers 08:34:29 08:54:29 Visit Eliana Spears Health 350.1.13.1 0 ity of [place] 4.2.7.2.686 Gus as Professio [phone] [address] Office [facility] One 2020-11-25 2020-11-25 Telephone [facility] 1.2.840.114 [id number] Univers 00:00:00 00:00:00 Wondiful A Health 350.1.13.10 ity of [place] 4.2.7.2.686 Gus as Professio [phone] [address] One 2020-11-24 2020-11-24 [facility]ici [facility] 1.2.840.114 [id number] Univers 17:10:55 17:38:31 ne Visit Wondiful A Health 350.1.13.10 ity of [place] 4.2.7.2.686 Gus as Professio [phone] [address] One 2020-11-24 2020-11-24 [facility] [id number] Univers 16:30:00 16:30:00 WONDIFUL ity o f [facility] 2020-08-25 2020-08-25 Refill [facility] 1.2.840.114 [id number] Univers 00:00:00 00:00:00 Wondiful A Health 350.1.13.10 ity of [place] 4.2.7.2.686 Gus as Professio [phone] [address] Office [facility] One 2020-08-19 2020-08-19 Hospital [facility] 1.2.207.843 [id number] Univers 08:40:00 23:59:00 Encounter Wondiful A [place] 350.1.13.10 ity of [place].2.[place] [phone] [address] 2020-08-19 2020-08-19 Outpatient R TORY [facility] [id number] Univers 00:00:00 00:00:00 WONDIFUL ity o f [facility] 2020-07-26 2020-07-26 Refill Tory [facility] 1..840.114 [id number] Univers 00:00:00 00:00:00 Wondiful A Health 350.1.13.10 ity of [place] 4.2.7.2.686 Gus as Professio [phone] [address] Office [facility] 2020-07-17 2020-07-17 Office Tory [facility] 1.2.840.114 [id number] Univers 08:49:47 09:57:55 Visit Wondiful A Health 350.1.13.10 ity of [place] 4.2.7.2.686 Gus as Professio [phone] [address] Office [facility] 2020-07-17 2020-07-17 Skid Man Lab, Adc Fam Pob I [facility] 1.. 840.114 [id number] Univers 09:35:58 09:55:58 Visit Eliana Spears Health 350.1.13.1 0 ity of [place] 4.2.7.2.686 Gus as Professio [phone] [address] Office [facility] 2020-07-17 2020-07-17 Outpatient R TORY [facility] [id number] Univers 08:45:00 08:45:00 WONDIFUL ity o f [facility] 2020-07-06 2020-07-06 Outpatient R TORY [facility] [id number] Univers 14:00:00 14:00:00 WONDIFUL ity o ranjit [facility] 2020-06-22 2020-06-22 Outpatient R TORY [facility] [id number] Univers 10:00:00 10:00:00 WONDIFUL ity o f [facility] 2020-05-15 2020-05-15 Outpatient R KELLIE [facility] [id number] Univers 10:30:00 10:30:00 ISE, ity of [facility] 2020-05-12 2020-05-12 [facility] 1.2.840.114 [id number] 14:54:51 23:59:00 Encounter Tuan Crooks 350.1.13.10 [place] 4.2.7.2.686 [place] [phone] [facility] 2020-05-12 2020-05-12 [facility] [place] 1.2.840.114 [id number] [facility] 14:54:51 23:59:00 Encounter Tuan Crooks 350.1.13.10 ity of [place].2.[place] [phone] [place] 927467 [place] 2020-05-12 2020-05-12 Imm/Inj Nurse, [facility] [place] 1.2.840.114 [id number] 14:24:53 14:34:53 Visit Fam Pob I Health 350.1.13.10 [place] 4.2.7.2.686 Professio [phone] [place] [address] Office Building One 2020-05-12 2020-05-12 Imm/Inj Nurse, [facility] Pob I [facility] 1.2.8 40.114 [id number] [facility] 14:24:53 14:34:53 Visit ToryMelissaful A Health 350.1.13.1 0 ity of [place] 4.2.7.2.686 Gus as Professio [phone] [address] Office Building One 2020-05-12 2020-05-12 Urgent Provider, [facility] 1.2.542.911 [id number] 13:44:14 14:27:11 Care [facility] 350.1.13.10 Care [place] 4.2.7.2.686 Professio [phone] [place] [address] Office Building One 2020-05-12 2020-05-12 Urgent Provider, [facility] 1.2.840.114 [id number] Univers 13:44:14 14:27:11 Care HollywoodVignesh helmdiful A Health 350.1.13.1 0 ity of [place] 4.2.7.2.686 Gus as Professio [phone] Mi dic[address] Office Building One 2020-05-12 2020-05-12 Outpatient R [facility] [id number] Univers 13:40:00 13:40:00 ity of [facility] 2020-05-12 2020-05-12 Letter Doctor THERESA 1.2.840.114 [id number] 00:00:00 00:00:00 (Out) Unassigned, PIPER 350.1.13.10 [facility] 4.2.7.2.686 [id number] 044 2020-05-12 2020-05-12 Letter Doctor THERESA 1.2.840.114 [id number] [facility] 00:00:00 00:00:00 (Out) Unassigned, PIPER 350.1.13.10 ity of [facility] 4.2.7.2.686 Gus as [phone] [address] 2020-04-13 2020-04-13 Telephone [facility] 1.2.840.114 [id number] 00:00:00 00:00:00 ise, SPECIALTY 350.1.13.10 Jr CARE 4.2.7.2.686 CENTER AT [phone] [address] 2020-04-13 2020-04-13 Telephone [facility] 1.2.840.114 [id number] [facility] 00:00:00 00:00:00 ise, SPECIALTY 350.1.13.10 ity of Jr CARE [place].2.[place] C[place] AT [phone] Mi marilyndav BHARDWAJ [address] [place] [address] 2020-04-03 2020-04-03 Office [facility] 1.2.840.114 [id number] 15:37:13 17:15:02 Visit ise, SPECIALTY 350.1.13.10 Jr CARE 4.2.7.2.686 CENTER AT [phone] LASHAE [address] [place] [address] 2020-04-03 2020-04-03 Office [facility] 1.2.840.114 [id number] [facility] 15:37:13 17:15:02 Visit ise, SPECIALTY 350.1.13.10 ity of Jr [place].2.[place] CENTER AT [phone] Mi marilyndav BHARDWAJ [address] [place] [address] 2020-04-03 2020-04-03 Outpatient R KELLIE [facility] [id number] Univers 15:30:00 15:30:00 ISE, ity of JR [facility] 2020-04-03 2020-04-03 Orders Doctor THERESA 1.2.840.114 [id number] 00:00:00 00:00:00 Only Unassigned, PIPER 350.1.13.10 [facility] 4.2.7.2.686 [id number] 009 2020-04-03 2020-04-03 Orders Doctor THERESA 1.2.840.114 [id number] Univers 00:00:00 00:00:00 Only Unassigned, PIPER 350.1.13.10 ity of [facility] 4.2.7.2.686 Gus as [phone] [address] 2020-03-30 2020-03-30 Out[facility] [id number] Univers 11:45:00 11:45:00 WONDIFUL ity o f [facility] 2020-03-26 2020-03-26 [facility] 1.2.892.201 [id number] Univers 16:00:00 23:59:00 Encounter Wondiful A [place] 350.1.13.10 ity of [place] [phone] [facility] 806 [place] 2020-03-26 2020-03-26 Out[facility] [id number] Univers 00:00:00 00:00:00 WONDIFUL ity o f [facility] 2020-03-26 2020-03-26 Orders Doctor CARDENAS 1.2.840.114 [id number] Univers 00:00:00 00:00:00 Only Unassigned, PIPER 350.1.13.10 ity of [facility] 4.2.7.2.686 Gus as [phone] [address] 2020-03-23 2020-03-23 Office [facility] 1.2.840.114 [id number] Univers 11:35:10 12:29:01 Visit Wondiful A [place] 350.1.13.10 ity of [place].2.[place] Professio [phone] [address] 2020-03-23 2020-03-23 Outpatient R TORY [facility] [id number] Univers 11:30:00 11:30:00 WONDIFUL ity o f [facility] 2020-03-18 2020-03-18 [facility]phone [facility] 1.2.840.114 [id number] Univers 00:00:00 00:00:00 Wondiful A [place] 350.1.13.10 ity of [place].2.[place] Professio [phone] [address] 2020-03-17 2020-03-17 Orders Doctor THERESA 1.2.840.114 [id number] 00:00:00 00:00:00 Only Unassigned, IPPER 350.1.13.10 [facility] 4.2.7.2.686 [phone] [facility] [place][note 2] 2020-03-17 2020-03-17 Orders Doctor THERESA 1.2.840.114 [id number] Univers 00:00:00 00:00:00 Only Unassigned, PIPER 350.1.13.10 ity of [facility] 4.2.7.2.686 Gus as [phone] [address] 2019-12-20 2019-12-20 [facility] 1.2.840.114 [id number] Univers 00:00:00 00:00:00 Wondiful A Health 350.1.13.10 ity of [place] 4.2.7.2.686 Gus as Professio [phone] [address] 2019-11-01 2019-11-01 Telemedici [facility] 1.2.840.114 [id number] Univers 12:36:44 17:01:49 ne Visit Wondiful A Health 350.1.13.10 ity of [place] 4.2.7.2.686 Gus as Professio [phone] [address] 2019-11-01 2019-11-01 Outpatient R TORY [facility] [id number] Univers 15:00:00 15:00:00 WONDIFUL ity o f [facility] 2019-10-28 2019-10-28 Office Tory [facility] 1.2.840.114 [id number] Univers 08:48:28 10:14:05 Visit Wondiful A Health 350.1.13.10 ity of [place] 4.2.7.2.686 Gus as Professio [phone] [facility] [address] [place] Office Building One 2019-10-28 2019-10-28 Outpatient R TORY [facility] [id number] Univers 09:00:00 09:00:00 WONDIFUL ity o f [facility] 2019-10-28 2019-10-28 [facility] 1.2.840.114 [id number] Univers 00:00:00 00:00:00 Management Wondiful A Health 350.1.13.10 ity of [place] 4.2.7.2.686 Gus as Professio [phone] Mi dical nal [address] One 2019-02-27 2019-02-27 Outpatient [facility] [id number] Common 09:40:00 09:40:[address] [facility] 2018-07-16 2018-07-16 Outpatient [facility] [id number] Common 14:00:00 14:00:[address] [facility] 2017-01-04 2017-01-05 [facility] [id number] Memoria 13:07:00 15:15:[address] [facility] 2017-01-04 2017-01-05 [facility]ded [facility] [id number] Memoria 13:07:00 15:15:[address] [facility] 2017-01-04 2017-01-05 Outpatient Hematpour, [facility] [id number] 08:07:00 10:15:00 Stephany 2017-01-03 2017-01-04 [facility] [id number] Memoria 13:32:00 04:59:[address] [facility] 2017-01-03 2017-01-04 Outpatient [facility] 4630 [id number] [facility] 13:32:00 04:59:00 [facility] [address] [facility] 2017-01-03 2017-01-03 Outpatient Hematpour, [facility] [id number] 08:32:00 23:59:00 Stephany 00 Results Test Description Test Time Test Comments Results Result Comments Source POCT MOLECULAR STREP 2022-09-18 15:26:22 Test Item Value Reference Range Interpretation Comme nts POCT Molecular Strep (test code = 98608-3) Negative Negative Lab Interpretation (test code = 76777-2) Normal [facility] (96055)2022-09-01 22:26:06 Test Item Value Reference Range Interpretation Comments NA (test code = 140 mmol/L 135-145 6103295752) K (test code = 5.0 mmol/L 3.5-5.0 1845598747) CL (test code = 109 mmol/L 98-108 H 7184489252) CO2 TOTAL (test code = 31 mmol/L 23-31 4634007805) AGAP (test code = 2-16 L 6969786710) BUN (test code = 13 mg/dL 7-23 7255434991) GLUCOSE (test code = 84 mg/dL 70-110 1578257734) CREATININE (test code = 0.80 mg/dL 0.50-1.04 3637654693) TOTAL BILI (test code = 0.6 mg/dL 0.1-1.8 3156805312) CALCIUM (test code = 9.1 mg/dL 8.6-10.6 8323307528) T PROTEIN (test code = 7.5 g/dL 6.3-8.2 2096300408) ALBUMIN (test code = 4.7 g/dL 3.5-5.0 6908358762) ALK PHOS (test code = 81 U/L 34-122 5129013496) ALTv (test code = 16 U/L 5-35 1742-6) AST(SGOT) (test code = 25 U/L 13-40 0020692633) eGFR (test code = mL/min/1.73m2 7627772966) TEJ (test code = TEJ) Association of Glomerular Filtration Rate (GFR) and Staging of Kidney Disease* + --+ --+ ------+| GFR (mL/min/1.73 m2) ?| With Kidney Damage ?| ?Without Kidney Damage+ --------+ --------+ +| ?>90 ?| ?Stage one ?| ? Normal ?+ ---+ ---+ -------+| ?60-89 ?| ?Stage two ?| ? Decreased GFR ? + --+ --+ ------+| ?30-59 ?| ?Stage three ?| ? Stage three ? + --+ --+ ------+| ?15-29 ?| ?Stage four ? | ? Stage four ?+ ---+ ---+ -------+| ?<15 (or dialysis) ? ?| ?Stage five ? | ? Stage five ?+ ---+ ---+ -------+ *Each stage assumes the associated GFR level has been in effect for at least three months. ?Stages 1 to 5, with or without kidney disease, indicate chronic kidney disease. Notes: Determination of stages one and two (with eGFR >59mL/min/1.73 m2) requires estimation of kidney damage for at least three months as defined by structural or functional abnormalities of the kidney, manifested by either:Pathological abnormalities or Markers of kidney damage (including abnormalities in the composition of the blood or urine or abnormalities in imaging tests). Lab Interpretation Abnormal (test code = 66859-2) [facility] STIMULATING [id number] 22:04:12 Test Item Value Reference Range Interpretation Comments TSH (test code = See_Comment [Automated message] 0640080115) The system OrdrIt generated this result transmitted ref erence range: 0.45 - 4 .70 mIU/L. The refe rence range was not u sed to interpret this result as normal/abnor mal. Lab Interpretation (test Normal code = 19466-6) [facility] [id number] 21:50:07 Test Item Value Reference Range Interpretation Comments FREE T4 (test code = See_Comment [Autom ated message] 4345718153) The system Or[employer]It generated this result transmitted ref erence range: 0.78 - 2 .20 ng/dL:. The ref erence range was not u sed to interpret this result as normal/abnor mal. Lab Interpretation (test Normal code = 93368-7) [facility] HospitalLIPID PANEL (18399)(TOTAL CHOLESTEROL, TRIGLYCERIDES, HDL)2022-09-01 21:40:09 Test Item Value Reference Range Interpretation Comments CHOL (test code = 181 mg/dL 120-200 4547198635) HDL (test code = 100 mg/dL See_Comment [Automated message] 1626282690) The system Or[employer]It generated this result transmit francheska reference range : >=50. The refer ence range was not u sed to interpret th is result as normal/abnormal . HDLC RATIO (test code = See_Comment [Au tomated message] 0429961346) The system Or[employer]It generated this result transmit francheska reference range : <=4.5. The refe rence range was not u sed to interpret th is result as normal/abnormal . TRIG (test code = 40 mg/dL 30-170 7908667380) LDL CHOL (test code = 73 mg/dL See_Comment [Auto mated message] 12562-3) The system [employer]It generated this result transmit francheska reference range : <=160. The refe rence range was not u sed to interpret th is result as normal/abnormal . VLDL (test code = 8 mg/dL 5-60 0180567701) Lab Interpretation (test Normal code = 54954-5) [facility] Hospital[facility]YCOSYLATED HEMOGLOBIN (A1C)2022-09-01 21:26:20 Test Item Value Reference Range Interpretation Comments HGB A1C (test code = 5.4 % 4.0-5.7 4548-4) TEJ (test code = TEJ) Reference RangesNormal: <5.7%Prediabetes: 5.7 - 6.4%Diabetes: > 6.5% Lab Interpretation (test Normal code = 56704-4) [facility] HospitalCBC WITH [id number] 20:59:10 Test Item Value Reference Range Interpretation Comments WBC (test code = See_Comment L [Automated 3790-2) message] The sy stem which generated this result transmitted reference range : 4.30 - 11.10 10*3/?L. The reference range was not used to interpret this result as normal/abnormal . RBC (test code = See_Comment [Automated 009-8) message] The sy stem which generated this result transmitted reference range : 3.93 - 5.25 10*6/?L. The reference range was not used to interpret this result as normal/abnormal . HGB (test code = 12.4 g/dL 11.6-15.0 718-7) HCT (test code = 39.9 % 35.7-45.2 4544-3) MCV (test code = 87.9 fL 80.6-95.5 787-2) MCH (test code = 27.3 pg 25.9-32.8 785-6) MCHC (test code = 31.1 g/dL 31.6-35.1 L 786-4) RDW-SD (test code = 41.8 fL 39.0-49.9 01916-6) RDW-CV (test code = 13.0 % 12.0-15.5 788-0) PLT (test code = See_Comment [Automated 777-3) message] The sy stem which generated this result transmitted reference range : 166 - 358 10*3/ ?L. The reference r adalberto was not used to interpret this result as normal/abnormal . MPV (test code = 11.1 fL 9.5-12.9 23659-7) NRBC/100 WBC (test See_Comment [Automat ed code = 3853722042) message] The system which generated this result transmitted reference range : 0.0 - 10.0 /100 WBCs. The refer ence range was not u sed to interpret th is result as normal/abnormal . NRBC x10^3 (test code See_Comment [Auto mated = 1368360614) message] The s ystem which generated this result transmitted reference range : 10*3/?L. The reference range was not used to interpret this result as normal/abnormal . GRAN MAT (NEUT) % 51.2 % (test code = 770-8) IMM GRAN % (test code 0.30 % = 1904370662) LYMPH % (test code = 33.2 % 736-9) MONO % (test code = 8.9 % 5905-5) EOS % (test code = 5.1 % 713-8) BASO % (test code = 1.3 % 706-2) GRAN MAT x10^3(ANC) 1.60 10*3/uL 1.88-7.09 L (test code = 4118665486) IMM GRAN x10^3 (test 0.00-0.06 code = 7232621114) LYMPH x10^3 (test code 1.04 10*3/uL 1.32-3.29 L = 731-0) MONO x10^3 (test code 0.28 10*3/uL 0.33-0.92 L = 742-7) EOS x10^3 (test code = 0.16 10*3/uL 0.03-0.39 711-2) BASO x10^3 (test code 0.04 10*3/uL 0.01-0.07 = 704-7) REACT LYMPHS (test Rare code = 7150114279) Lab Interpretation Abnormal (test code = 95038-3) [facility] URINALYSIS, [id number] 21:19:00 Test Item Value Reference Range Interpretation Comments POCT U SP GRAV (test code = 1.015 mg/dl 1.005-1.025 3255) POCT PH U (test code = 3254) 8.0 mg/dl 5-8 POCT U LEUK EST (test code = negative Negative - Negative 3263) POCT U NIT (test code = 3262) negative Negative - Negative POCT U PROT (test code = negative Negative - Negative 3259) POCT U GLU (test code = 3256) negative Negative - Negative POCT U KETONE (test code = negative Negative - Negative 3258) POCT U UROBILI (test code = 0.2 mg/dl 0.2-1 3260) POCT U BILI (test code = negative Negative - Negative 3261) POCT U BLD (test code = 3257) trace Negative - Negative POCT U COLOR (test code = yellow 3266) POCT U APPEAR (test code = clear 3267) [facility] [id number] 13:21:00Surgical Pathology Report Case: [id number] Authorizing Provider: Randy Beverly MD Collected: 02/09/2017 1221 Ordering Location: [facility] Received: 02/09/2017 1232 PERIOPERATIVE SERVICES Pathologist: Sarai Matt MD Specimen: Thymus, Radical Thymectomy - stitch on Right Superior fold A. THYMUS, RADICAL THYMECTOMY: - THYMIC TISSUE WITH MILD LYMPHOID HYPERPLASIA AND GERMINAL CENTER FORMATION - NEGATIVE FOR NEOPLASM (SEE COMMENT) Sections show thymic tissue with normal lobulated architecture with distinct cortexand medulla. Occasional lymphoid follicles are seen with a germinal center. Immunostains for CD20, BCL-6 and CD10 are positive, supporting the germinal center phenotype. 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 There is no evidence of a neoplasm.[id number] gravisReceived fresh labeled "thymus" with the description of "radical thymectomy - stitch on right superior fold" and consists of a 14 x 7 x 1.9 cm irregular portion ofsoft tissue. The posterior side is ragged and the anterior side is smooth with areas of erythema. A previous stitch designates the right superior fold. There are no masses orf lesions identified. The specimen is serially sectioned from inferior to superior to reveal a lobulated mir-pink to mir-yellow cut surface. A portion of the specimen is submitted for research. Ink code: Anterior right - blue, anterior left - red, posterior right - black, posterior left as orange. Mortgage Counselor sections are submitted into cassettes A1 to A10 with the most inferior in A1 and the most superior in A10. JA/plPerfor med.The following special studies were performed on this case and the interpretation is incorporatedin the diagnostic report above:The immunohistochemistry test was developed and its performance characteristics determined by [facility], Pathology Laboratory. It has not been cleared or approved by the U.S. Food and Drug Administration. The FDA has determined that such clearance or approval is not necessary. The test is used for clinical purposes. It should not be regarded as investigational or for research. This laboratory is certified under the Clinical Laboratory Improvement Amendments of 1988 (CLIA-88) as qualified to perform high complexity clinical laboratory testing.[id number] 05:37:00 Test Item Value Reference Range Interpretation Comments MAGNESIUM (BEAKER) (test code = 1.7 mg/dL 1.6-2.6 627) BASIC METABOLIC [id number] 05:37:00 Test Item Value Reference Range Interpretation Comments SODIUM (BEAKER) 138 meq/L 136-145 (test code = 381) POTASSIUM (BEAKER) 3.6 meq/L 3.5-5.1 (test code = 379) CHLORIDE (BEAKER) 109 meq/L 98-107 H (test code = 382) CO2 (BEAKER) (test 22 meq/L 22-29 code = 355) BLOOD UREA NITROGEN 6 mg/dL 7-21 L (BEAKER) (test code = 354) CREATININE (BEAKER) 0.56 mg/dL 0.57-1.25 L (test code = 358) GLUCOSE RANDOM 86 mg/dL 70-105 (BEAKER) (test code = 652) CALCIUM (BEAKER) 8.3 mg/dL 8.4-10.2 L (test code = 697) EGFR (BEAKER) (test 119 mL/min/1.73 ESTIM ATED GFR IS code = 1092) sq m NOT ACCURATE CREATININE CLEARANCE IN PREDICTING GLOMERULAR FILTRATION RATE . ESTIMATED GFR I S NOT APPLICABLE FOR DIALYSIS PATIEN TS. CBC W/PLT COUNT & AUTO [id number] 05:18:00 Test Item Value Reference Range Interpretation Comments WHITE BLOOD CELL COUNT (BEAKER) 5.8 K/ L 4.0-10.0 (test code = 775) RED BLOOD CELL COUNT (BEAKER) 3.79 M/ L 4.00-5.00 L (test code = 761) HEMOGLOBIN (BEAKER) (test code = 11.3 GM/DL 12.0-15.0 L 410) HEMATOCRIT (BEAKER) (test code = 33.6 % 36.0-45.0 L 411) MEAN CORPUSCULAR VOLUME (BEAKER) 88.8 fL 82.0-99.0 (test code = 753) MEAN CORPUSCULAR HEMOGLOBIN 29.9 pg 27.0-33.0 (BEAKER) (test code = 751) MEAN CORPUSCULAR HEMOGLOBIN CONC 33.7 GM/DL 32.0-36.0 (BEAKER) (test code = 752) RED CELL DISTRIBUTION WIDTH 12.8 % 10.3-14.2 (BEAKER) (test code = 412) PLATELET COUNT (BEAKER) (test 209 K/CU MM 150-430 code = 756) MEAN PLATELET VOLUME (BEAKER) 8.7 fL 6.5-10.5 (test code = 754) NUCLEATED RED BLOOD CELLS 0 /100 WBC 0-0 (BEAKER) (test code = 413) NEUTROPHILS RELATIVE PERCENT 48 % (BEAKER) (test code = 429) LYMPHOCYTES RELATIVE PERCENT 29 % (BEAKER) (test code = 430) MONOCYTES RELATIVE PERCENT 11 % (BEAKER) (test code = 431) EOSINOPHILS RELATIVE PERCENT 11 % (BEAKER) (test code = 432) BASOPHILS RELATIVE PERCENT 1 % (BEAKER) (test code = 437) NEUTROPHILS ABSOLUTE COUNT 2.78 K/ L 1.80-8.00 (BEAKER) (test code = 670) LYMPHOCYTES ABSOLUTE COUNT 1.67 K/ L 1.48-4.50 (BEAKER) (test code = 414) MONOCYTES ABSOLUTE COUNT (BEAKER) 0.64 K/ L 0.00-1.30 (test code = 415) EOSINOPHILS ABSOLUTE COUNT 0.63 K/ L 0.00-0.50 H (BEAKER) (test code = 416) BASOPHILS ABSOLUTE COUNT (BEAKER) 0.04 K/ L 0.00-0.20 (test code = 417) [id number] 08:30:00 Test Item Value Reference Range Interpretation Comments POTASSIUM (BEAKER) (test code = 4.6 meq/L 3.5-5.1 379) [id number] 04:50:00 Test Item Value Reference Range Interpretation Comments MAGNESIUM (BEAKER) (test code = 1.8 mg/dL 1.6-2.6 627) BASIC METABOLIC [id number] 04:50:00 Test Item Value Reference Range Interpretation Comments SODIUM (BEAKER) 140 meq/L 136-145 (test code = 381) POTASSIUM (BEAKER) 3.4 meq/L 3.5-5.1 L (test code = 379) CHLORIDE (BEAKER) 109 meq/L 98-107 H (test code = 382) CO2 (BEAKER) (test 25 meq/L 22-29 code = 355) BLOOD UREA NITROGEN 6 mg/dL 7-21 L (BEAKER) (test code = 354) CREATININE (BEAKER) 0.64 mg/dL 0.57-1.25 (test code = 358) GLUCOSE RANDOM 89 mg/dL 70-105 (BEAKER) (test code = 652) CALCIUM (BEAKER) 8.3 mg/dL 8.4-10.2 L (test code = 697) EGFR (BEAKER) (test 102 mL/min/1.73 ESTIM ATED GFR IS code = 1092) sq m NOT ACCURATE CREATININE CLEARANCE IN PREDICTING GLOMERULAR FILTRATION RATE . ESTIMATED GFR I S NOT APPLICABLE FOR DIALYSIS PATIEN TS. CBC W/PLT COUNT & AUTO [id number] 04:42:00 Test Item Value Reference Range Interpretation Comments WHITE BLOOD CELL COUNT (BEAKER) 7.4 K/ L 4.0-10.0 (test code = 775) RED BLOOD CELL COUNT (BEAKER) 3.53 M/ L 4.00-5.00 L (test code = 761) HEMOGLOBIN (BEAKER) (test code = 10.7 GM/DL 12.0-15.0 L 410) HEMATOCRIT (BEAKER) (test code = 31.8 % 36.0-45.0 L 411) MEAN CORPUSCULAR VOLUME (BEAKER) 90.2 fL 82.0-99.0 (test code = 753) MEAN CORPUSCULAR HEMOGLOBIN 30.5 pg 27.0-33.0 (BEAKER) (test code = 751) MEAN CORPUSCULAR HEMOGLOBIN CONC 33.8 GM/DL 32.0-36.0 (BEAKER) (test code = 752) RED CELL DISTRIBUTION WIDTH 11.8 % 10.3-14.2 (BEAKER) (test code = 412) PLATELET COUNT (BEAKER) (test 192 K/CU MM 150-430 code = 756) MEAN PLATELET VOLUME (BEAKER) 8.4 fL 6.5-10.5 (test code = 754) NUCLEATED RED BLOOD CELLS 0 /100 WBC 0-0 (BEAKER) (test code = 413) NEUTROPHILS RELATIVE PERCENT 65 % (BEAKER) (test code = 429) LYMPHOCYTES RELATIVE PERCENT 22 % (BEAKER) (test code = 430) MONOCYTES RELATIVE PERCENT 9 % (BEAKER) (test code = 431) EOSINOPHILS RELATIVE PERCENT 4 % (BEAKER) (test code = 432) BASOPHILS RELATIVE PERCENT 0 % (BEAKER) (test code = 437) NEUTROPHILS ABSOLUTE COUNT 4.83 K/ L 1.80-8.00 (BEAKER) (test code = 670) LYMPHOCYTES ABSOLUTE COUNT 1.61 K/ L 1.48-4.50 (BEAKER) (test code = 414) MONOCYTES ABSOLUTE COUNT (BEAKER) 0.63 K/ L 0.00-1.30 (test code = 415) EOSINOPHILS ABSOLUTE COUNT 0.29 K/ L 0.00-0.50 (BEAKER) (test code = 416) BASOPHILS ABSOLUTE COUNT (BEAKER) 0.03 K/ L 0.00-0.20 (test code = 417) [id number] 05:16:00 Test Item Value Reference Range Interpretation Comments MAGNESIUM (BEAKER) (test code = 1.8 mg/dL 1.6-2.6 627) BASIC METABOLIC [id number] 05:16:00 Test Item Value Reference Range Interpretation Comments SODIUM (BEAKER) 138 meq/L 136-145 (test code = 381) POTASSIUM (BEAKER) 3.2 meq/L 3.5-5.1 L (test code = 379) CHLORIDE (BEAKER) 111 meq/L 98-107 H (test code = 382) CO2 (BEAKER) (test 19 meq/L 22-29 L code = 355) BLOOD UREA NITROGEN 6 mg/dL 7-21 L (BEAKER) (test code = 354) CREATININE (BEAKER) 0.61 mg/dL 0.57-1.25 (test code = 358) GLUCOSE RANDOM 88 mg/dL 70-105 (BEAKER) (test code = 652) CALCIUM (BEAKER) 8.0 mg/dL 8.4-10.2 L (test code = 697) EGFR (BEAKER) (test 108 mL/min/1.73 ESTIM ATED GFR IS code = 1092) sq m NOT ACCURATE CREATININE CLEARANCE IN PREDICTING GLOMERULAR FILTRATION RATE . ESTIMATED GFR I S NOT APPLICABLE FOR DIALYSIS PATIEN TS. CBC W/PLT COUNT & AUTO [id number] 05:02:00 Test Item Value Reference Range Interpretation Comments WHITE BLOOD CELL COUNT (BEAKER) 8.2 K/ L 4.0-10.0 (test code = 775) RED BLOOD CELL COUNT (BEAKER) 3.64 M/ L 4.00-5.00 L (test code = 761) HEMOGLOBIN (BEAKER) (test code = 10.7 GM/DL 12.0-15.0 L 410) HEMATOCRIT (BEAKER) (test code = 32.8 % 36.0-45.0 L 411) MEAN CORPUSCULAR VOLUME (BEAKER) 90.2 fL 82.0-99.0 (test code = 753) MEAN CORPUSCULAR HEMOGLOBIN 29.3 pg 27.0-33.0 (BEAKER) (test code = 751) MEAN CORPUSCULAR HEMOGLOBIN CONC 32.5 GM/DL 32.0-36.0 (BEAKER) (test code = 752) RED CELL DISTRIBUTION WIDTH 11.6 % 10.3-14.2 (BEAKER) (test code = 412) PLATELET COUNT (BEAKER) (test 193 K/CU MM 150-430 code = 756) MEAN PLATELET VOLUME (BEAKER) 8.5 fL 6.5-10.5 (test code = 754) NUCLEATED RED BLOOD CELLS 0 /100 WBC 0-0 (BEAKER) (test code = 413) NEUTROPHILS RELATIVE PERCENT 78 % (BEAKER) (test code = 429) LYMPHOCYTES RELATIVE PERCENT 12 % (BEAKER) (test code = 430) MONOCYTES RELATIVE PERCENT 9 % (BEAKER) (test code = 431) EOSINOPHILS RELATIVE PERCENT 0 % (BEAKER) (test code = 432) BASOPHILS RELATIVE PERCENT 0 % (BEAKER) (test code = 437) NEUTROPHILS ABSOLUTE COUNT 6.38 K/ L 1.80-8.00 (BEAKER) (test code = 670) LYMPHOCYTES ABSOLUTE COUNT 1.01 K/ L 1.48-4.50 L (BEAKER) (test code = 414) MONOCYTES ABSOLUTE COUNT (BEAKER) 0.75 K/ L 0.00-1.30 (test code = 415) EOSINOPHILS ABSOLUTE COUNT 0.01 K/ L 0.00-0.50 (BEAKER) (test code = 416) BASOPHILS ABSOLUTE COUNT (BEAKER) 0.03 K/ L 0.00-0.20 (test code = 417) 0.00BASI METABOLIC [id number] 13:43:00 Test Item Value Reference Range Interpretation Comments SODIUM (BEAKER) 141 meq/L 136-145 (test code = 381) POTASSIUM (BEAKER) 3.5 meq/L 3.5-5.1 (test code = 379) CHLORIDE (BEAKER) 114 meq/L 98-107 H (test code = 382) CO2 (BEAKER) (test 20 meq/L 22-29 L code = 355) BLOOD UREA NITROGEN 8 mg/dL 7-21 (BEAKER) (test code = 354) CREATININE (BEAKER) 0.65 mg/dL 0.57-1.25 (test code = 358) GLUCOSE RANDOM 149 mg/dL 70-105 H (BEAKER) (test code = 652) CALCIUM (BEAKER) 7.4 mg/dL 8.4-10.2 L (test code = 697) EGFR (BEAKER) (test 100 mL/min/1.73 ESTIM ATED GFR IS code = 1092) sq m NOT ACCURATE CREATININE CLEARANCE IN PREDICTING GLOMERULAR FILTRATION RATE . ESTIMATED GFR I S NOT APPLICABLE FOR DIALYSIS PATIEN TS. CALCIUM, [id number] 13:41:00 Test Item Value Reference Range Interpretation Comments CALCIUM IONIZED (BEAKER) (test 1.02 mmol/L 1.12-1.27 L code = 698) PH, BLOOD (BEAKER) (test code = 7.30 1810) [id number] 13:39:00 Test Item Value Reference Range Interpretation Comments MAGNESIUM (BEAKER) (test code = 1.7 mg/dL 1.6-2.6 627) CBC (HEMOGRAM ONLY)2017-02-09 13:24:00 Test Item Value Reference Range Interpretation Comments WHITE BLOOD CELL COUNT (BEAKER) 11.2 K/ L 4.0-10.0 H (test code = 775) RED BLOOD CELL COUNT (BEAKER) 3.78 M/ L 4.00-5.00 L (test code = 761) HEMOGLOBIN (BEAKER) (test code = 11.1 GM/DL 12.0-15.0 L 410) HEMATOCRIT (BEAKER) (test code = 33.8 % 36.0-45.0 L 411) MEAN CORPUSCULAR VOLUME (BEAKER) 89.5 fL 82.0-99.0 (test code = 753) MEAN CORPUSCULAR HEMOGLOBIN 29.3 pg 27.0-33.0 (BEAKER) (test code = 751) MEAN CORPUSCULAR HEMOGLOBIN CONC 32.8 GM/DL 32.0-36.0 (BEAKER) (test code = 752) RED CELL DISTRIBUTION WIDTH 11.6 % 10.3-14.2 (BEAKER) (test code = 412) PLATELET COUNT (BEAKER) (test 211 K/CU MM 150-430 code = 756) MEAN PLATELET VOLUME (BEAKER) 8.1 fL 6.5-10.5 (test code = 754) NUCLEATED RED BLOOD CELLS 0 /100 WBC 0-0 (BEAKER) (test code = 413) 0.00CALCIUM, [id number] 10:51:00 Test Item Value Reference Range Interpretation Comments CALCIUM IONIZED (BEAKER) (test 1.08 mmol/L 1.12-1.27 L code = 698) PH, BLOOD (BEAKER) (test code = 7.31 1810) SODIUM NA-STAT [id number] 10:50:00 Test Item Value Reference Range Interpretation Comments SODIUM (BEAKER) (test code = 381) 140 meq/L 135-148 BLOOD GAS, [id number] 10:50:00 Test Item Value Reference Range Interpretation Comments PH ARTERIAL (BEAKER) (test code = 7.31 7.35-7.45 L 383) PCO2 ARTERIAL (BEAKER) (test code 46 mmHg 35-45 H = 384) PO2 ARTERIAL (BEAKER) (test code 131 mmHg 80-90 H = 385) O2 SATURATION ARTERIAL (BEAKER) 98.5 % 96.0-97.0 H (test code = 386) HCO3 ARTERIAL (BEAKER) (test code 23 mmol/L 21-29 = 388) BASE EXCESS ARTERIAL (BEAKER) -3.9 mmol/L -2.0-3.0 L (test code = 387) PATIENT TEMPERATURE (BEAKER) 34.8 C (test code = 1818) FIO2 (BEAKER) (test code = 1819) 76.0 % POTASSIUM-STAT [id number] 10:50:00 Test Item Value Reference Range Interpretation Comments POTASSIUM (BEAKER) (test code = 3.4 meq/L 3.6-5.5 L 379) GLUCOSE-STAT [id number] 10:50:00 Test Item Value Reference Range Interpretation Comments GLUCOSE RANDOM (BEAKER) (test code 129 mg/dL 70-110 H = 652) HGB/HCT (H&H) - STAT [id number] 10:50:00 Test Item Value Reference Range Interpretation Comments HEMOGLOBIN (BEAKER) (test code = 11.6 g/dL 12.0-15.0 L 410) HEMATOCRIT (BEAKER) (test code = 34.0 % 36.0-45.0 L 411) COMPREHENSIVE METABOLIC [id number] 12:53:00 Test Item Value Reference Range Interpretation Comments TOTAL PROTEIN 7.1 gm/dL 6.0-8.3 (BEAKER) (test code = 770) ALBUMIN (BEAKER) 4.3 g/dL 3.5-5.0 (test code = 1145) ALKALINE PHOSPHATASE 62 U/L 40-150 (BEAKER) (test code = 346) BILIRUBIN TOTAL 0.4 mg/dL 0.2-1.2 (BEAKER) (test code = 377) SODIUM (BEAKER) (test 141 meq/L 136-145 code = 381) POTASSIUM (BEAKER) 3.6 meq/L 3.5-5.1 (test code = 379) CHLORIDE (BEAKER) 109 meq/L 98-107 H (test code = 382) CO2 (BEAKER) (test 23 meq/L 22-29 code = 355) BLOOD UREA NITROGEN 11 mg/dL 7-21 (BEAKER) (test code = 354) CREATININE (BEAKER) 0.76 mg/dL 0.57-1.25 (test code = 358) GLUCOSE RANDOM 82 mg/dL 70-105 (BEAKER) (test code = 652) CALCIUM (BEAKER) 8.8 mg/dL 8.4-10.2 (test code = 697) AST (SGOT) (BEAKER) 18 U/L 5-34 (test code = 353) ALT (SGPT) (BEAKER) 13 U/L 6-55 (test code = 347) EGFR (BEAKER) (test 83 mL/min/1.73 ESTIMA FRANCHESKA GFR IS code = 1092) sq m NOT ACCURATE CREATININE CLEARANCE IN PREDICTING GLOMERULAR FILTRATION RATE . ESTIMATED GFR I S NOT APPLICABLE FOR DIALYSIS PATIEN TS. CBC W/PLT COUNT & AUTO [id number] 12:39:00 Test Item Value Reference Range Interpretation Comments WHITE BLOOD CELL COUNT (BEAKER) 4.3 K/ L 4.0-10.0 (test code = 775) RED BLOOD CELL COUNT (BEAKER) 4.36 M/ L 4.00-5.00 (test code = 761) HEMOGLOBIN (BEAKER) (test code = 12.7 GM/DL 12.0-15.0 410) HEMATOCRIT (BEAKER) (test code = 38.7 % 36.0-45.0 411) MEAN CORPUSCULAR VOLUME (BEAKER) 88.7 fL 82.0-99.0 (test code = 753) MEAN CORPUSCULAR HEMOGLOBIN 29.2 pg 27.0-33.0 (BEAKER) (test code = 751) MEAN CORPUSCULAR HEMOGLOBIN CONC 32.9 GM/DL 32.0-36.0 (BEAKER) (test code = 752) RED CELL DISTRIBUTION WIDTH 13.0 % 10.3-14.2 (BEAKER) (test code = 412) PLATELET COUNT (BEAKER) (test 225 K/CU MM 150-430 code = 756) MEAN PLATELET VOLUME (BEAKER) 8.6 fL 6.5-10.5 (test code = 754) NUCLEATED RED BLOOD CELLS 0 /100 WBC 0-0 (BEAKER) (test code = 413) NEUTROPHILS RELATIVE PERCENT 56 % (BEAKER) (test code = 429) LYMPHOCYTES RELATIVE PERCENT 27 % (BEAKER) (test code = 430) MONOCYTES RELATIVE PERCENT 10 % (BEAKER) (test code = 431) EOSINOPHILS RELATIVE PERCENT 7 % (BEAKER) (test code = 432) BASOPHILS RELATIVE PERCENT 1 % (BEAKER) (test code = 437) NEUTROPHILS ABSOLUTE COUNT 2.42 K/ L 1.80-8.00 (BEAKER) (test code = 670) LYMPHOCYTES ABSOLUTE COUNT 1.16 K/ L 1.48-4.50 L (BEAKER) (test code = 414) MONOCYTES ABSOLUTE COUNT (BEAKER) 0.42 K/ L 0.00-1.30 (test code = 415) EOSINOPHILS ABSOLUTE COUNT 0.28 K/ L 0.00-0.50 (BEAKER) (test code = 416) BASOPHILS ABSOLUTE COUNT (BEAKER) 0.03 K/ L 0.00-0.20 (test code = 417) [id number] 12:34:00 Test Item Value Reference Range Interpretation Comments PROTIME (BEAKER) (test code = 13.9 seconds 11.7-14.7 759) INR (BEAKER) (test code = 370) 1.1 <=5.9 PARTIAL THROMBOPLASTIN TIME 31.7 seconds 22.5-36.0 (BEAKER) (test code = 760) RECOMMENDED COUMADIN/WARFARIN INR THERAPY RANGESSTANDARD DOSE: 2.0 - 3.0 Includes: PROPHYLAXIS for venous thrombosis, systemic embolization; TREATMENT for venous thrombosis and/or pulmonary embolus.HIGH RISK: Target INR is 2.5-3.5 for patients with mechanical heart valves.CHEM [id number] 08:19:00 Test Item Value Reference Range Interpretation Comments Magnesium Lvl (test code = Magnesium 1.9 1.8-2.4 Lvl) [facility]2017-05-25 08:19:00 Test Item Value Reference Range Interpretation Comments Magnesium Lvl (test code = Magnesium 1.9 1.8-2.4 Lvl) [facility]2017-05-25 08:19:00 Test Item Value Reference Range Interpretation Comments Magnesium Lvl (test code = Magnesium 1.9 1.8-2.4 Lvl) [facility]2017-05-25 08:18:00 Test Item Value Reference Range Interpretation Comments eGFR (test code = eGFR) 109 [facility]2017-05-25 08:18:00 Test Item Value Reference Range Interpretation Comments Chloride Lvl (test code = Chloride Lvl) 110 95-109 [facility]2017-05-25 08:18:00 Test Item Value Reference Range Interpretation Comments CO2 (test code = CO2) 24 24-32 [facility]2017-05-25 08:18:00 Test Item Value Reference Range Interpretation Comments Calcium Lvl (test code = Calcium Lvl) 7.8 8.5-10.5 [id number] 08:18:00 Test Item Value Reference Range Interpretation Comments Glucose Lvl (test code = Glucose Lvl) 106 70-99 [facility]2017-05-25 08:18:00 Test Item Value Reference Range Interpretation Comments BUN (test code = BUN) 7 7-22 [facility]2017-05-25 08:18:00 Test Item Value Reference Range Interpretation Comments Creatinine Lvl (test code = Creatinine 0.66 0.50-1.40 Lvl) [id number] 08:18:00 Test Item Value Reference Range Interpretation Comments Sodium Lvl (test code = Sodium Lvl) 141 135-145 [facility]2017-05-25 08:18:00 Test Item Value Reference Range Interpretation Comments Potassium Lvl (test code = Potassium 3.1 3.5-5.1 Lvl) [facility]2017-05-25 08:18:00 Test Item Value Reference Range Interpretation Comments AGAP (test code = AGAP) 10.1 10.0-20.0 [facility]sk[facility]WQKNJVOSF9947-[facility]-11 08:18:00 Test Item Value Reference Range Interpretation Comments RBC (test code = RBC) 3.52 4.20-5.40 [facility] H[id number] 08:18:00 Test Item Value Reference Range Interpretation Comments WBC (test code = WBC) 8.6 3.7-10.4 [facility] H[id number] 08:18:00 Test Item Value Reference Range Interpretation Comments Platelet (test code = Platelet) 206 133-450 [facility] Hospit[id number] 08:18:00 Test Item Value Reference Range Interpretation Comments MCH (test code = MCH) 28.2 pg 27.0-31.0 [facility] H[id number] 08:18:00 Test Item Value Reference Range Interpretation Comments MCHC (test code = MCHC) 33.4 32.0-36.0 [facility] H[id number] 08:18:00 Test Item Value Reference Range Interpretation Comments MCV (test code = MCV) 84.6 80.0-98.0 [facility] HospitalL[id number] 08:18:00 Test Item Value Reference Range Interpretation Comments RDW (test code = RDW) 13.6 11.5-14.5 [facility] H[id number] 08:18:00 Test Item Value Reference Range Interpretation Comments Hct (test code = Hct) 29.7 36.0-48.0 [facility] HospitalWyfiksuKFHHQOHRDR1635-72-81 08:18:00 Test Item Value Reference Range Interpretation Comments Hgb (test code = Hgb) 9.9 12.0-16.0 [facility] Hospit[id number] 08:18:00 Test Item Value Reference Range Interpretation Comments MPV (test code = MPV) 8.9 7.4-10.4 [facility] Ho[id number] 08:18:00 Test Item Value Reference Range Interpretation Comments Lymphocytes # (test code = Lymphocytes 1.7 1.0-5.5 #) [facility] HospitalEtcowqbMNJYCMQYBM8017-45-10 08:18:00 Test Item Value Reference Range Interpretation Comments Monocytes # (test code = Monocytes #) 0.9 <=0.8 [facility] Hospit[id number] 08:18:00 Test Item Value Reference Range Interpretation Comments Basophils (test code = Basophils) 0.3 <=1.0 [facility] Hospit[id number] 08:18:00 Test Item Value Reference Range Interpretation Comments Segs-Bands # (test code = Segs-Bands #) 5.9 1.5-8.1 [facility] Hos[id number] 08:18:00 Test Item Value Reference Range Interpretation Comments Eosinophils # (test code = Eosinophils 0.1 <=0.5 #) [facility] HospitalBmquhqeHMQMLIGNOD8165-34-95 08:18:00 Test Item Value Reference Range Interpretation Comments Eosinophils (test code = Eosinophils) 1.6 <=4.0 [facility] HospitalMwxmlbiOARZCFJVXD0547-63-32 08:18:00 Test Item Value Reference Range Interpretation Comments Monocytes (test code = Monocytes) 10.3 2.0-12.0 [facility] HospitalPcoqbojMCGDHWJCLF0858-76-79 08:18:00 Test Item Value Reference Range Interpretation Comments Lymphocytes (test code = Lymphocytes) 19.6 20.0-40.0 [facility] HospitalUbsrqsrMJNVBRMTJI1882-89-10 08:18:00 Test Item Value Reference Range Interpretation Comments Segs (test code = Segs) 68.2 45.0-75.0 [facility]2017-05-25 08:18:00 Test Item Value Reference Range Interpretation Comments eGFR (test code = eGFR) 109 [facility]2017-05-25 08:18:00 Test Item Value Reference Range Interpretation Comments Chloride Lvl (test code = Chloride Lvl) 110 95-109 [facility]2017-05-25 08:18:00 Test Item Value Reference Range Interpretation Comments CO2 (test code = CO2) 24 24-32 [facility]2017-05-25 08:18:00 Test Item Value Reference Range Interpretation Comments Calcium Lvl (test code = Calcium Lvl) 7.8 8.5-10.5 [facility]2017-05-25 08:18:00 Test Item Value Reference Range Interpretation Comments Glucose Lvl (test code = Glucose Lvl) 106 70-99 [facility]2017-05-25 08:18:00 Test Item Value Reference Range Interpretation Comments BUN (test code = BUN) 7 7-22 [facility]2017-05-25 08:18:00 Test Item Value Reference Range Interpretation Comments Creatinine Lvl (test code = Creatinine 0.66 0.50-1.40 Lvl) [facility]2017-05-25 08:18:00 Test Item Value Reference Range Interpretation Comments Sodium Lvl (test code = Sodium Lvl) 141 135-145 [facility]2017-05-25 08:18:00 Test Item Value Reference Range Interpretation Comments Potassium Lvl (test code = Potassium 3.1 3.5-5.1 Lvl) [facility]2017-05-25 08:18:00 Test Item Value Reference Range Interpretation Comments AGAP (test code = AGAP) 10.1 10.0-20.0 [facility] 08:18:00 Test Item Value Reference Range Interpretation Comments RBC (test code = RBC) 3.52 4.20-5.40 [facility]mvkqkwDUDVRINBKL7726-93-40 08:18:00 Test Item Value Reference Range Interpretation Comments WBC (test code = WBC) 8.6 3.7-10.4 [facility]FdhgkkwAXUEIGVMRQ4748-24-19 08:18:00 Test Item Value Reference Range Interpretation Comments Platelet (test code = Platelet) 206 133-450 [facility]OtdceohVLFDIBIXJP2854-76-67 08:18:00 Test Item Value Reference Range Interpretation Comments MCH (test code = MCH) 28.2 pg 27.0-31.0 [facility]GhpegtpJBVJVOVOJP3909-06-28 08:18:00 Test Item Value Reference Range Interpretation Comments MCHC (test code = MCHC) 33.4 32.0-36.0 [facility] HospitalLdfuhcbMPPWRAFOYY5442-91-42 08:18:00 Test Item Value Reference Range Interpretation Comments MCV (test code = MCV) 84.6 80.0-98.0 [facility] HospitalQcmbdqnWTOGBJUQHY6414-39-86 08:18:00 Test Item Value Reference Range Interpretation Comments RDW (test code = RDW) 13.6 11.5-14.5 [facility] HospitalPetapbpJWMKSXBRWA2977-33-23 08:18:00 Test Item Value Reference Range Interpretation Comments Hct (test code = Hct) 29.7 36.0-48.0 [facility] HospitalKjtceayFULGINBUOZ0678-49-81 08:18:00 Test Item Value Reference Range Interpretation Comments Hgb (test code = Hgb) 9.9 12.0-16.0 [facility] HospitalLaiqwgoPCLKVEKQWV4275-11-93 08:18:00 Test Item Value Reference Range Interpretation Comments MPV (test code = MPV) 8.9 7.4-10.4 [facility] HospitalEyzhymvVRGKKKTLXZ2819-40-08 08:18:00 Test Item Value Reference Range Interpretation Comments Lymphocytes # (test code = Lymphocytes 1.7 1.0-5.5 #) [facility] HospitalUbcxxjcYPTYMKCNXE3050-23-41 08:18:00 Test Item Value Reference Range Interpretation Comments Monocytes # (test code = Monocytes #) 0.9 <=0.8 [facility] HospitalDyihrysRUBCRVFPAE9705-96-05 08:18:00 Test Item Value Reference Range Interpretation Comments Basophils (test code = Basophils) 0.3 <=1.0 [facility] HospitalNtvnbbeJGZDHYZWCP5972-84-04 08:18:00 Test Item Value Reference Range Interpretation Comments Segs-Bands # (test code = Segs-Bands #) 5.9 1.5-8.1 [facility] HospitalHfntebsSMQDMJJEWC2327-59-11 08:18:00 Test Item Value Reference Range Interpretation Comments Eosinophils # (test code = Eosinophils 0.1 <=0.5 #) [facility] HospitalKbsssvtINIZVXKVUG5582-04-53 08:18:00 Test Item Value Reference Range Interpretation Comments Eosinophils (test code = Eosinophils) 1.6 <=4.0 [facility]AgxaonfQMXKPZIYDJ3793-03-93 08:18:00 Test Item Value Reference Range Interpretation Comments Monocytes (test code = Monocytes) 10.3 2.0-12.0 [facility] HospitalSphmhedLKFREJSXPZ9947-48-66 08:18:00 Test Item Value Reference Range Interpretation Comments Lymphocytes (test code = Lymphocytes) 19.6 20.0-40.0 [facility] HospitalKjtkvwdHEYDBVGBOF6272-53-45 08:18:00 Test Item Value Reference Range Interpretation Comments Segs (test code = Segs) 68.2 45.0-75.0 [facility]2017-05-25 08:18:00 Test Item Value Reference Range Interpretation Comments eGFR (test code = eGFR) 109 [facility]2017-05-25 08:18:00 Test Item Value Reference Range Interpretation Comments Chloride Lvl (test code = Chloride Lvl) 110 95-109 [facility]2017-05-25 08:18:00 Test Item Value Reference Range Interpretation Comments CO2 (test code = CO2) 24 24-32 [facility]2017-05-25 08:18:00 Test Item Value Reference Range Interpretation Comments Calcium Lvl (test code = Calcium Lvl) 7.8 8.5-10.5 [facility]2017-05-25 08:18:00 Test Item Value Reference Range Interpretation Comments Glucose Lvl (test code = Glucose Lvl) 106 70-99 [facility]2017-05-25 08:18:00 Test Item Value Reference Range Interpretation Comments BUN (test code = BUN) 7 7-22 [facility]2017-05-25 08:18:00 Test Item Value Reference Range Interpretation Comments Creatinine Lvl (test code = Creatinine 0.66 0.50-1.40 Lvl) [facility]2017-05-25 08:18:00 Test Item Value Reference Range Interpretation Comments Sodium Lvl (test code = Sodium Lvl) 141 135-145 [facility]2017-05-25 08:18:00 Test Item Value Reference Range Interpretation Comments Potassium Lvl (test code = Potassium 3.1 3.5-5.1 Lvl) [facility]2017-05-25 08:18:00 Test Item Value Reference Range Interpretation Comments AGAP (test code = AGAP) 10.1 10.0-20.0 [facility] HospitalVcijpxyYKGCWWFDVU2518-30-04 08:18:00 Test Item Value Reference Range Interpretation Comments RBC (test code = RBC) 3.52 4.20-5.40 [facility] HospitalXqotpwpBMTCBABZZP8227-91-99 08:18:00 Test Item Value Reference Range Interpretation Comments WBC (test code = WBC) 8.6 3.7-10.4 [facility] HospitalHwwzoidAKPHQLKQNB2188-53-91 08:18:00 Test Item Value Reference Range Interpretation Comments Platelet (test code = Platelet) 206 133-450 [facility] HospitalBesinptDBJOEBTAYU7339-67-69 08:18:00 Test Item Value Reference Range Interpretation Comments MCH (test code = MCH) 28.2 pg 27.0-31.0 [facility] HospitalErcunxzPABHYEQNOH9639-77-90 08:18:00 Test Item Value Reference Range Interpretation Comments MCHC (test code = MCHC) 33.4 32.0-36.0 [facility] HospitalCpdhbadLQZTHRMUQP9375-99-52 08:18:00 Test Item Value Reference Range Interpretation Comments MCV (test code = MCV) 84.6 80.0-98.0 [facility] HospitalPeiahazBYSLGMJIMF0680-32-59 08:18:00 Test Item Value Reference Range Interpretation Comments RDW (test code = RDW) 13.6 11.5-14.5 [facility] HospitalEixlacwDWMXTBGDXZ5026-00-72 08:18:00 Test Item Value Reference Range Interpretation Comments Hct (test code = Hct) 29.7 36.0-48.0 [facility] HospitalGfiqqxlKVLNINNTFY3140-43-39 08:18:00 Test Item Value Reference Range Interpretation Comments Hgb (test code = Hgb) 9.9 12.0-16.0 [facility] HospitalEactdjuBTOILAUTGI1085-83-73 08:18:00 Test Item Value Reference Range Interpretation Comments MPV (test code = MPV) 8.9 7.4-10.4 [facility] HospitalGhdtvutUTRCOZWURM1288-13-12 08:18:00 Test Item Value Reference Range Interpretation Comments Lymphocytes # (test code = Lymphocytes 1.7 1.0-5.5 #) [facility] HospitalMdhbebdRMUGFMLKUR8969-82-21 08:18:00 Test Item Value Reference Range Interpretation Comments Monocytes # (test code 0.9 See_Comment [Aut omated message] The = Monocytes #) system which generated this result tra nsmitted reference range : <=0.8. The reference r adalberto was not used to int erpret this result as normal/abnormal . [facility] HospitalOlhptozUTUGWZYXBK1876-37-97 08:18:00 Test Item Value Reference Range Interpretation Comments Basophils (test code = 0.3 See_Comment [Aut omated message] The Basophils) system which ge nerated this result tra nsmitted reference range : <=1.0. The reference r adalberto was not used to int erpret this result as normal/abnormal . [facility] HospitalEjiknmxQYBBRHLHXQ5981-35-16 08:18:00 Test Item Value Reference Range Interpretation Comments Segs-Bands # (test code = Segs-Bands #) 5.9 1.5-8.1 [facility] HospitalKsevmlpHQUOJCEMYX9125-12-90 08:18:00 Test Item Value Reference Range Interpretation Comments Eosinophils # (test code 0.1 See_Comment [A utomated message] The = Eosinophils #) system whic h generated this result tra nsmitted reference range : <=0.5. The reference r adalberto was not used to int erpret this result as normal/abnormal . [facility] HospitalYdcwugrDMRRRKRZOT3001-59-60 08:18:00 Test Item Value Reference Range Interpretation Comments Eosinophils (test code = 1.6 See_Comment [A utomated message] The Eosinophils) system which ge nerated this result tra nsmitted reference range : <=4.0. The reference r adalberto was not used to int erpret this result as normal/abnormal . [facility] HospitalBwetrylIFUILYIEUV8656-70-27 08:18:00 Test Item Value Reference Range Interpretation Comments Monocytes (test code = Monocytes) 10.3 2.0-12.0 [facility] HospitalAxrdgshYMMGFUTWXM8334-26-35 08:18:00 Test Item Value Reference Range Interpretation Comments Lymphocytes (test code = Lymphocytes) 19.6 20.0-40.0 [facility] HospitalSrulxqySTTRNZJFLJ5942-25-51 08:18:00 Test Item Value Reference Range Interpretation Comments Segs (test code = Segs) 68.2 45.0-75.0 [facility] HospitalIaafjyjCJURJBDWCN4252-68-37 20:45:00 Test Item Value Reference Range Interpretation Comments POC Activated Clotting Time (test code 159 s = POC Activated Clotting Time) [facility] HospitalWtbdjnhIABBQNEZAX8291-96-41 20:45:00 Test Item Value Reference Range Interpretation Comments POC Activated Clotting Time (test code 159 s = POC Activated Clotting Time) [facility] HospitalMlbuodtNCPEERXFZM0655-13-72 20:45:00 Test Item Value Reference Range Interpretation Comments POC Activated Clotting Time (test code 159 s = POC Activated Clotting Time) [facility] HospitalLskuymuPMNSNSDBIE9241-52-03 19:00:00 Test Item Value Reference Range Interpretation Comments POC Activated Clotting Time (test code 357 s = POC Activated Clotting Time) [facility] HospitalTgctdbwGEWHFPVUJK7718-87-91 19:00:00 Test Item Value Reference Range Interpretation Comments POC Activated Clotting Time (test code 357 s = POC Activated Clotting Time) [facility] HospitalAhrquxlSGHLKKPQBK8773-51-57 19:00:00 Test Item Value Reference Range Interpretation Comments POC Activated Clotting Time (test code 357 s = POC Activated Clotting Time) [facility] HospitalNluivktZNZUTWHXQO4888-69-39 18:29:00 Test Item Value Reference Range Interpretation Comments POC Activated Clotting Time (test code 352 s = POC Activated Clotting Time) [facility] HospitalXxisazdMHLHLKHFLZ9333-14-32 18:29:00 Test Item Value Reference Range Interpretation Comments POC Activated Clotting Time (test code 352 s = POC Activated Clotting Time) [facility] HospitalYnwhquySOATACHEXX0136-28-34 18:29:00 Test Item Value Reference Range Interpretation Comments POC Activated Clotting Time (test code 352 s = POC Activated Clotting Time) [facility]XlexkxtIFMYVDGIIIRV4322-07-22 14:08:00 Test Item Value Reference Range Interpretation Comments Potassium Lvl (test code = Potassium 3.6 3.5-5.1 Lvl) [facility] HospitalTmmjphoRWQEYWHAWDPZ5167-19-53 14:08:00 Test Item Value Reference Range Interpretation Comments BUN (test code = BUN) 10 7-22 [facility] HospitalSdgywcfBQHLKCDBSBZO7214-19-20 14:08:00 Test Item Value Reference Range Interpretation Comments Creatinine Lvl (test code = Creatinine 0.79 0.50-1.40 Lvl) [facility] HospitalUgdvlupQQQYCFDFDXRK3605-30-12 14:08:00 Test Item Value Reference Range Interpretation Comments Glucose Lvl (test code = Glucose Lvl) 91 70-99 [facility] HospitalLgrgxzsLHIBTQTUNCPM4007-05-43 14:08:00 Test Item Value Reference Range Interpretation Comments eGFR (test code = eGFR) 93 [facility] HospitalEevimdkZWADFJLIUFZT5633-46-06 14:08:00 Test Item Value Reference Range Interpretation Comments Calcium Lvl (test code = Calcium Lvl) 9.0 8.5-10.5 [facility] HospitalWzmmiskPLTJYKBKVEPC9160-46-38 14:08:00 Test Item Value Reference Range Interpretation Comments AGAP (test code = AGAP) 12.6 10.0-20.0 [facility] HospitalEtvetrsMDUFYNGYAL3592-79-64 14:08:00 Test Item Value Reference Range Interpretation Comments INR (test code = INR) 1.11 0.85-1.17 [facility] HospitalQsqvsggLXEDDILUEZ7270-62-49 14:08:00 Test Item Value Reference Range Interpretation Comments PTT (test code = PTT) 36.9 s 22.9-35.8 [facility] HospitalUdplydjXALYCGFACW8756-31-09 14:08:00 Test Item Value Reference Range Interpretation Comments PT (test code = PT) 14.5 s 12.0-14.7 [facility] HospitalXpimdvaXUOPYWKRAC9526-34-23 14:08:00 Test Item Value Reference Range Interpretation Comments Hgb (test code = Hgb) 12.7 12.0-16.0 [facility] HospitalCqmwlihDXENZZQFOM9787-96-28 14:08:00 Test Item Value Reference Range Interpretation Comments RBC (test code = RBC) 4.54 4.20-5.40 [facility] HospitalQpnknpnKRXTGSIDTA3909-93-02 14:08:00 Test Item Value Reference Range Interpretation Comments WBC (test code = WBC) 4.2 3.7-10.4 [facility] HospitalJotfdtwHCEKTTZAXW8326-55-91 14:08:00 Test Item Value Reference Range Interpretation Comments MCH (test code = MCH) 27.9 pg 27.0-31.0 [facility] HospitalTzdgthdJADSNSSZKH4362-03-07 14:08:00 Test Item Value Reference Range Interpretation Comments MCV (test code = MCV) 85.3 80.0-98.0 [facility] HospitalWivvkjvDOBLNIOVEB3057-74-22 14:08:00 Test Item Value Reference Range Interpretation Comments Hct (test code = Hct) 38.7 36.0-48.0 [facility] HospitalCaeixhaYJOFIEKZGS0437-10-35 14:08:00 Test Item Value Reference Range Interpretation Comments RDW (test code = RDW) 13.7 11.5-14.5 [facility] HospitalAkrpvwfSIYDSEFLWP4742-62-73 14:08:00 Test Item Value Reference Range Interpretation Comments MCHC (test code = MCHC) 32.7 32.0-36.0 [facility] HospitalPnpdritZCOFVYXVHG6145-37-97 14:08:00 Test Item Value Reference Range Interpretation Comments Platelet (test code = Platelet) 253 133-450 [facility] HospitalRztolzaOBFIXXBOIN5488-01-26 14:08:00 Test Item Value Reference Range Interpretation Comments MPV (test code = MPV) 9.1 7.4-10.4 [facility]KzuonetKPBONZNGID3513-81-92 14:08:00 Test Item Value Reference Range Interpretation Comments Segs (test code = Segs) 49.4 45.0-75.0 [facility] HospitalTlcczomDLFHRHPKDS0341-92-45 14:08:00 Test Item Value Reference Range Interpretation Comments Lymphocytes (test code = Lymphocytes) 33.4 20.0-40.0 [facility] HospitalYaymxjfTUVUDONZWX0445-87-12 14:08:00 Test Item Value Reference Range Interpretation Comments Monocytes (test code = Monocytes) 11.1 2.0-12.0 [facility] HospitalCsdykqlIWFUTIPVNZ5828-83-34 14:08:00 Test Item Value Reference Range Interpretation Comments Eosinophils (test code = Eosinophils) 5.2 <=4.0 [facility] HospitalScpfqaiQXZFIVWDRH1181-70-37 14:08:00 Test Item Value Reference Range Interpretation Comments Basophils (test code = Basophils) 0.9 <=1.0 [facility] HospitalVlzjfcgQIGJVYCFBY9415-00-79 14:08:00 Test Item Value Reference Range Interpretation Comments Segs-Bands # (test code = Segs-Bands #) 2.1 1.5-8.1 [facility]oundCwvvfiwCTNGBICJDY2667-00-67 14:08:00 Test Item Value Reference Range Interpretation Comments Lymphocytes # (test code = Lymphocytes 1.4 1.0-5.5 #) [facility] HospitalXwimcpcIOQEELJWJD3215-83-61 14:08:00 Test Item Value Reference Range Interpretation Comments Eosinophils # (test code = Eosinophils 0.2 <=0.5 #) [facility] HospitalEhfcvyyECZDEQHCPY6960-49-53 14:08:00 Test Item Value Reference Range Interpretation Comments Monocytes # (test code = Monocytes #) 0.5 <=0.8 [facility] PSIGNWO5533-59-63 14:08:00 Test Item Value Reference Range Interpretation Comments ABO/Rh (test code = ABO/Rh) O POS [facility] POLIOFU8857-73-79 14:08:00 Test Item Value Reference Range Interpretation Comments Antibody Scrn (test Negative (01/04/17 9:08 code = Antibody Scrn) AM) [facility] LLHJY5983-24-08 14:08:00 Test Item Value Reference Range Interpretation Comments Magnesium Lvl (test code = Magnesium 2.1 1.8-2.4 Lvl) [facility] HospitalTdewbiePHLJIORZRJBZ8869-70-18 14:08:00 Test Item Value Reference Range Interpretation Comments Chloride Lvl (test code = Chloride Lvl) 106 95-109 [facility] HospitalTjxbvrrDLKICFOHJCUL3727-80-48 14:08:00 Test Item Value Reference Range Interpretation Comments CO2 (test code = CO2) 27 24-32 [facility] HospitalIaafdyhMGYCLISMXJPH5043-90-78 14:08:00 Test Item Value Reference Range Interpretation Comments Sodium Lvl (test code = Sodium Lvl) 142 135-145 [facility] HospitalXetfdkwUKXDNDUUNC8409-24-68 14:08:00 Test Item Value Reference Range Interpretation Comments PT (test code = PT) 14.5 s 12.0-14.7 [facility] HospitalAxlqvzvSEEBKILQZR2059-94-88 14:08:00 Test Item Value Reference Range Interpretation Comments Hgb (test code = Hgb) 12.7 12.0-16.0 [facility] HospitalOaunbohOYUVSEDIFW6691-58-08 14:08:00 Test Item Value Reference Range Interpretation Comments RBC (test code = RBC) 4.54 4.20-5.40 [facility] HospitalXmixgqyVECAHDXKIP2537-10-37 14:08:00 Test Item Value Reference Range Interpretation Comments WBC (test code = WBC) 4.2 3.7-10.4 [facility] HospitalPemriuhWEEIYNJCVO2776-37-15 14:08:00 Test Item Value Reference Range Interpretation Comments MCH (test code = MCH) 27.9 pg 27.0-31.0 [facility] HospitalSjksgdbZJWVGWHHSY5445-62-48 14:08:00 Test Item Value Reference Range Interpretation Comments MCV (test code = MCV) 85.3 80.0-98.0 [facility] HospitalRcurahkKGYVKCNMEM1056-74-49 14:08:00 Test Item Value Reference Range Interpretation Comments Hct (test code = Hct) 38.7 36.0-48.0 [facility] HospitalPjxkxpaLMNGONWVQH6135-88-82 14:08:00 Test Item Value Reference Range Interpretation Comments RDW (test code = RDW) 13.7 11.5-14.5 [facility] HospitalZjjokadHXXVXICIAT0466-82-27 14:08:00 Test Item Value Reference Range Interpretation Comments MCHC (test code = MCHC) 32.7 32.0-36.0 [facility] HospitalGwlroqlATFTBRVGZL7466-10-39 14:08:00 Test Item Value Reference Range Interpretation Comments Platelet (test code = Platelet) 253 133-450 [facility] HospitalSqsjgieLKCGWYJEVN3601-21-78 14:08:00 Test Item Value Reference Range Interpretation Comments MPV (test code = MPV) 9.1 7.4-10.4 [facility] HospitalFzynfmtYNMCJGXNIY3709-87-00 14:08:00 Test Item Value Reference Range Interpretation Comments Segs (test code = Segs) 49.4 45.0-75.0 [facility] HospitalAjpwzdtJMQESVXPGT4273-90-25 14:08:00 Test Item Value Reference Range Interpretation Comments Lymphocytes (test code = Lymphocytes) 33.4 20.0-40.0 [facility] HospitalOwydifmVJIFAVPYTS7647-28-51 14:08:00 Test Item Value Reference Range Interpretation Comments Monocytes (test code = Monocytes) 11.1 2.0-12.0 [facility] HospitalJstguqiCDQNNITYGA8578-28-86 14:08:00 Test Item Value Reference Range Interpretation Comments Eosinophils (test code = 5.2 See_Comment [A utomated message] The Eosinophils) system which ge nerated this result tra nsmitted reference range : <=4.0. The reference r adalberto was not used to int erpret this result as normal/abnormal . [facility] HospitalAopifxzRKEXIDHPIQ7260-79-36 14:08:00 Test Item Value Reference Range Interpretation Comments Basophils (test code = 0.9 See_Comment [Aut omated message] The Basophils) system which ge nerated this result tra nsmitted reference range : <=1.0. The reference r adalberto was not used to int erpret this result as normal/abnormal . [facility] HospitalOcuaudhKURYKOCSAG6114-88-21 14:08:00 Test Item Value Reference Range Interpretation Comments Segs-Bands # (test code = Segs-Bands #) 2.1 1.5-8.1 [facility] HospitalSqzttlpXODMEGZLGD5148-58-03 14:08:00 Test Item Value Reference Range Interpretation Comments Lymphocytes # (test code = Lymphocytes 1.4 1.0-5.5 #) [facility] HospitalHpgbxtvSZLPGTRMQK1027-67-79 14:08:00 Test Item Value Reference Range Interpretation Comments Eosinophils # (test code 0.2 See_Comment [A utomated message] The = Eosinophils #) system ic h generated this result tra nsmitted reference range : <=0.5. The reference r adalberto was not used to int erpret this result as normal/abnormal . [facility]oundHeozaihFRUUXFXXMR3417-21-13 14:08:00 Test Item Value Reference Range Interpretation Comments Monocytes # (test code 0.5 See_Comment [Aut omated message] The = Monocytes #) system which generated this result tra nsmitted reference range : <=0.8. The reference r adalberto was not used to int erpret this result as normal/abnormal . [facility] WOZHZGE3938-49-88 14:08:00 Test Item Value Reference Range Interpretation Comments ABO/Rh (test code = ABO/Rh) O POS [facility] ShorelineRecochemWeroom [facility] UMUNDWY6127-34-51 14:08:00 Test Item Value Reference Range Interpretation Comments Antibody Scrn (test Negative (01/04/17 9:08 code = Antibody Scrn) AM) [facility]CHE[facility] UFFUC4319-66-74 14:08:00 Test Item Value Reference Range Interpretation Comments Magnesium Lvl (test code = Magnesium 2.1 1.8-2.4 Lvl) [facility] HospitalGziqdbdBGUCGVFUKUNY2681-69-30 14:08:00 Test Item Value Reference Range Interpretation Comments Chloride Lvl (test code = Chloride Lvl) 106 95-109 [facility] HospitalWzdonwnCRDIVOLDKPIY8159-25-28 14:08:00 Test Item Value Reference Range Interpretation Comments CO2 (test code = CO2) 27 24-32 [facility] HospitalJcfkyseGDTUDMJJSUXO1556-52-11 14:08:00 Test Item Value Reference Range Interpretation Comments Sodium Lvl (test code = Sodium Lvl) 142 135-145 [facility] HospitalPwevkbrDIRKIURQUUFE8658-81-51 14:08:00 Test Item Value Reference Range Interpretation Comments Potassium Lvl (test code = Potassium 3.6 3.5-5.1 Lvl) [facility] HospitalIvaxmgnXCDPFIRPYRIH7716-09-76 14:08:00 Test Item Value Reference Range Interpretation Comments BUN (test code = BUN) 10 7-22 [facility] HospitalYfhevxxVEUJFUDORARL7337-51-25 14:08:00 Test Item Value Reference Range Interpretation Comments Creatinine Lvl (test code = Creatinine 0.79 0.50-1.40 Lvl) [facility] HospitalPexlulqFAARHLYDIBNN2616-47-08 14:08:00 Test Item Value Reference Range Interpretation Comments Glucose Lvl (test code = Glucose Lvl) 91 70-99 [facility] HospitalYugucarDTCDMEBAELUW8688-93-09 14:08:00 Test Item Value Reference Range Interpretation Comments eGFR (test code = eGFR) 93 [facility] HospitalCwpfnsjCAZLUPXNCGXZ2641-69-23 14:08:00 Test Item Value Reference Range Interpretation Comments Calcium Lvl (test code = Calcium Lvl) 9.0 8.5-10.5 [facility] HospitalCjdkzxbFKADGSONIHPC0060-91-75 14:08:00 Test Item Value Reference Range Interpretation Comments AGAP (test code = AGAP) 12.6 10.0-20.0 [facility] HospitalJqiueqbQQSSBBRKTN1873-86-86 14:08:00 Test Item Value Reference Range Interpretation Comments INR (test code = INR) 1.11 0.85-1.17 [facility] HospitalDyvfokoEUPPVOXKAL1241-51-62 14:08:00 Test Item Value Reference Range Interpretation Comments PTT (test code = PTT) 36.9 s 22.9-35.8 [facility] HospitalDkkklghHVMHQQTUKA3427-98-20 14:08:00 Test Item Value Reference Range Interpretation Comments PT (test code = PT) 14.5 s 12.0-14.7 [facility] HospitalTkgauqqQPRPRJKWUR2836-76-25 14:08:00 Test Item Value Reference Range Interpretation Comments Hgb (test code = Hgb) 12.7 12.0-16.0 [facility] HospitalSmxgnqwGSKBQINJEC2273-02-91 14:08:00 Test Item Value Reference Range Interpretation Comments RBC (test code = RBC) 4.54 4.20-5.40 [facility] HospitalAydrmpgIRPTGNCYTJ8809-83-53 14:08:00 Test Item Value Reference Range Interpretation Comments WBC (test code = WBC) 4.2 3.7-10.4 [facility] HospitalHbuyruzVWYOTUQOIW4638-11-64 14:08:00 Test Item Value Reference Range Interpretation Comments MCH (test code = MCH) 27.9 pg 27.0-31.0 [facility] HospitalNkwxftcPQGVZCBARS5083-80-91 14:08:00 Test Item Value Reference Range Interpretation Comments MCV (test code = MCV) 85.3 80.0-98.0 [facility] HospitalTeegqmaWERVSBMRCQ3205-98-83 14:08:00 Test Item Value Reference Range Interpretation Comments Hct (test code = Hct) 38.7 36.0-48.0 [facility] HospitalDowrxzkKCRQWSUUGN9184-74-58 14:08:00 Test Item Value Reference Range Interpretation Comments RDW (test code = RDW) 13.7 11.5-14.5 [facility] HospitalHgrcztyMYYQWNTRFO1120-01-42 14:08:00 Test Item Value Reference Range Interpretation Comments MCHC (test code = MCHC) 32.7 32.0-36.0 [facility] HospitalWexqiozTUJYNKCEIM6310-98-91 14:08:00 Test Item Value Reference Range Interpretation Comments Platelet (test code = Platelet) 253 133-450 [facility] HospitalQzskgkyXDUMZRLYHC6232-81-98 14:08:00 Test Item Value Reference Range Interpretation Comments MPV (test code = MPV) 9.1 7.4-10.4 [facility] HospitalNrbmepeHVAAMLKYPA2387-18-03 14:08:00 Test Item Value Reference Range Interpretation Comments Segs (test code = Segs) 49.4 45.0-75.0 [facility] HospitalTvmlrpnBTIFHYDLXO4066-94-28 14:08:00 Test Item Value Reference Range Interpretation Comments Lymphocytes (test code = Lymphocytes) 33.4 20.0-40.0 [facility] HospitalGejubbrORRLVLISEK9564-01-95 14:08:00 Test Item Value Reference Range Interpretation Comments Monocytes (test code = Monocytes) 11.1 2.0-12.0 [facility] HospitalByfgzzfFBAUMUXSBL2432-87-30 14:08:00 Test Item Value Reference Range Interpretation Comments Eosinophils (test code = Eosinophils) 5.2 <=4.0 [facility] HospitalVlcxhfuITOZFJWIKW5856-07-13 14:08:00 Test Item Value Reference Range Interpretation Comments Basophils (test code = Basophils) 0.9 <=1.0 [facility] HospitalXnhaqysAALEOBIOYS8571-08-13 14:08:00 Test Item Value Reference Range Interpretation Comments Segs-Bands # (test code = Segs-Bands #) 2.1 1.5-8.1 [facility] HospitalRcrafviYQAFXYQOET4470-75-93 14:08:00 Test Item Value Reference Range Interpretation Comments Lymphocytes # (test code = Lymphocytes 1.4 1.0-5.5 #) [facility] HospitalMmbpryaWVCKKUAXLH6231-42-02 14:08:00 Test Item Value Reference Range Interpretation Comments Eosinophils # (test code = Eosinophils 0.2 <=0.5 #) [facility] HospitalCbnmeqiUXTDEBCLJE0405-47-06 14:08:00 Test Item Value Reference Range Interpretation Comments Monocytes # (test code = Monocytes #) 0.5 <=0.8 [facility] EDOGRGX8463-83-45 14:08:00 Test Item Value Reference Range Interpretation Comments ABO/Rh (test code = ABO/Rh) O POS [facility] TCKPXGI0130-51-44 14:08:00 Test Item Value Reference Range Interpretation Comments Antibody Scrn (test Negative (01/04/17 9:08 code = Antibody Scrn) AM) [facility] [id number] 14:08:00 Test Item Value Reference Range Interpretation Comments Magnesium Lvl (test code = Magnesium 2.1 1.8-2.4 Lvl) [facility] HospitalPzazsdhTQBMPLKEJTHQ9648-05-12 14:08:00 Test Item Value Reference Range Interpretation Comments Chloride Lvl (test code = Chloride Lvl) 106 95-109 [facility] [id number] 14:08:00 Test Item Value Reference Range Interpretation Comments CO2 (test code = CO2) 27 24-32 [facility] Hos[id number] 14:08:00 Test Item Value Reference Range Interpretation Comments Sodium Lvl (test code = Sodium Lvl) 142 135-145 [facility] Hos[id number] 14:08:00 Test Item Value Reference Range Interpretation Comments Potassium Lvl (test code = Potassium 3.6 3.5-5.1 Lvl) [facility] Hos[id number] 14:08:00 Test Item Value Reference Range Interpretation Comments BUN (test code = BUN) 10 7-22 [facility] HospitalYrpupvuVIPPOQQHURYC2048-04-09 14:08:00 Test Item Value Reference Range Interpretation Comments Creatinine Lvl (test code = Creatinine 0.79 0.50-1.40 Lvl) [facility] Hos[id number] 14:08:00 Test Item Value Reference Range Interpretation Comments Glucose Lvl (test code = Glucose Lvl) 91 70-99 [facility] Hos[id number] 14:08:00 Test Item Value Reference Range Interpretation Comments eGFR (test code = eGFR) 93 [facility] Hospital[id number] 14:08:00 Test Item Value Reference Range Interpretation Comments Calcium Lvl (test code = Calcium Lvl) 9.0 8.5-10.5 [id number] 14:08:00 Test Item Value Reference Range Interpretation Comments AGAP (test code = AGAP) 12.6 10.0-20.0 [id number] 14:08:00 Test Item Value Reference Range Interpretation Comments INR (test code = INR) 1.11 0.85-1.17 [facility]63 14:08:00 Test Item Value Reference Range Interpretation Comments PTT (test code = PTT) 36.9 s 22.9-35.8 [facility] [id number] 15:16:00 Test Item Value Reference Range Interpretation Comments eGFR (test code = eGFR) 79 [facility] [id number] 15:16:00 Test Item Value Reference Range Interpretation Comments POC Creatinine (test code = POC 0.9 0.5-1.4 Creatinine) [facility] [id number] 15:16:00 Test Item Value Reference Range Interpretation Comments eGFR (test code = eGFR) 79 [facility] [id number] 15:16:00 Test Item Value Reference Range Interpretation Comments POC Creatinine (test code = POC 0.9 0.5-1.4 Creatinine) [facility] [id number] 15:16:00 Test Item Value Reference Range Interpretation Comments eGFR (test code = eGFR) 79 [facility] [id number] 15:16:00 Test Item Value Reference Range Interpretation Comments POC Creatinine (test code = POC 0.9 0.5-1.4 Creatinine) [facility] METABOLIC [id number] 09:19:00 Test Item Value Reference Range Interpretation Comments SODIUM (BEAKER) 143 meq/L 136-145 (test code = 381) POTASSIUM (BEAKER) 3.7 meq/L 3.5-5.1 (test code = 379) CHLORIDE (BEAKER) 109 meq/L 98-107 H (test code = 382) CO2 (BEAKER) (test 25 meq/L 22-29 code = 355) BLOOD UREA NITROGEN 9 mg/dL 7-21 (BEAKER) (test code = 354) CREATININE (BEAKER) 0.73 mg/dL 0.57-1.25 (test code = 358) GLUCOSE RANDOM 93 mg/dL 70-105 (BEAKER) (test code = 652) CALCIUM (BEAKER) 9.4 mg/dL 8.4-10.2 (test code = 697) EGFR (BEAKER) (test 87 mL/min/1.73 ESTIMA FRANCHESKA GFR IS code = 1092) sq m NOT ACCURATE CREATININE CLEARANCE IN PREDICTING GLOMERULAR FILTRATION RATE . ESTIMATED GFR I S NOT APPLICABLE FOR DIALYSIS PATIEN TS. CBC (HEMOGRAM ONLY)2016-11-28 09:15:00 Test Item Value Reference Range Interpretation Comments WHITE BLOOD CELL COUNT (BEAKER) 4.3 K/ L 4.0-10.0 (test code = 775) RED BLOOD CELL COUNT (BEAKER) 4.27 M/ L 4.00-5.00 (test code = 761) HEMOGLOBIN (BEAKER) (test code = 12.1 GM/DL 12.0-15.0 410) HEMATOCRIT (BEAKER) (test code = 38.2 % 36.0-45.0 411) MEAN CORPUSCULAR VOLUME (BEAKER) 89.6 fL 82.0-99.0 (test code = 753) MEAN CORPUSCULAR HEMOGLOBIN 28.4 pg 27.0-33.0 (BEAKER) (test code = 751) MEAN CORPUSCULAR HEMOGLOBIN CONC 31.7 GM/DL 32.0-36.0 L (BEAKER) (test code = 752) RED CELL DISTRIBUTION WIDTH 11.9 % 10.3-14.2 (BEAKER) (test code = 412) PLATELET COUNT (BEAKER) (test 235 K/CU MM 150-430 code = 756) MEAN PLATELET VOLUME (BEAKER) 8.4 fL 6.5-10.5 (test code = 754) NUCLEATED RED BLOOD CELLS 0 /100 WBC 0-0 (BEAKER) (test code = 413) 0.00
[2023-07-02] MEDS ORDERED: SIMETHICONE 80 MG CHEWABLE TAB ONE (10:14)
[2023-07-02 10:42] LABS: Absolute Lymphocytes (CBC) 0.9 K/uL (0.7-4.9); Hematocrit 37.2 % (36.0-45.0); Lymphocytes % 19.5 % (15.3-44.8); MPV 8.5 fL (7.6-11.3); Platelets 266 thou/uL (152-406); RBC Red Blood Cell Count 4.43 M/uL (3.86-4.86)
[2023-07-02 10:49] LABS: Protime INR 0.93
[2023-07-02 11:05] LABS: Albumin 3.4 g/dL (3.4-5.0); Bilirubin Direct 0.1 mg/dL (0-0.2); Bilirubin Indirect, Calculated 0.2 mg/dL (0.2-0.8); Bilirubin Total 0.3 mg/dL (0.2-1.0); Magnesium 2.2 mg/dL (1.6-2.4); Potassium 3.7 mEq/L (3.5-5.1); Protein, Total 6.9 g/dL (6.4-8.2); Troponin High Sensitivity 5.1 pg/mL (<58.9)
--- NOTE | 2023-07-02 11:40 | RAD REPORT ---
EXAM DESCRIPTION: RAD - Chest Single View - 07/02/2023 11:04 am CLINICAL HISTORY: indigestion Chest pain. COMPARISON: <Comparisons> FINDINGS: Portable technique limits examination quality. The lungs are emphysematous but grossly clear. The heart is normal in size. No displaced fractures. IMPRESSION: No acute intrathoracic process suspected.
--- NOTE | 2023-07-02 12:09 | ER ---
Nurse's Notes [facility] Name: Lurdes Tse Age: 48 yrs Sex: Female : 1975 Arrival Date: 07/02/2023 Time: 09:40 Bed 18 Private MD: Diagnosis: Allergy, unspecified;Eosinophilia Presentation: 07/02 09:48 Chief complaint: Patient states: she is on a clinical trial for MG treatment, and the ap3 patient received a booster for Meningitis. Patient reports that since the booster, she has had severe heartburn and indigestion with a burning feeling with "bubbling" in her chest. Patient currently rates her pain as a 7/10 on the pain scale. Coronavirus screen: At this time, the client does not indicate any symptoms associated with coronavirus-19. Ebola Screen: No symptoms or risks identified at this time. Initial Sepsis Screen: Does the patient meet any 2 criteria? No. Patient's initial sepsis screen is negative. Does the patient have a suspected source of infection? No. Patient's initial sepsis screen is negative. Risk Assessment: Do you want to hurt yourself or someone else? Patient reports no desire to harm self or others. Onset of symptoms was June 29, 2023. 09:48 Method Of Arrival: Ambulatory ap3 09:48 Acuity: ELIZABETH 3 ap3 Triage Assessment: 09:51 General: Appears in no apparent distress. Behavior is calm, cooperative, appropriate ap3 for age. Pain: Complains of pain in chest Pain currently is 7 out of 10 on a pain scale. Quality of pain is described as burning, Pain began gradually, 2-3 days ago. Neuro: Level of Consciousness is awake, alert, obeys commands, Oriented to person, place, time, situation, Appropriate for age. Cardiovascular: Respiratory: Airway is patent Respiratory effort is even, unlabored, Respiratory pattern is regular, symmetrical. GI: Reports indigestion. Historical: - Allergies: 09:50 magnesium; ap3 09:50 potassium; ap3 - PMHx: 09:50 Hyperlipidemia; Migraines; Myasthenia Gravis; ap3 - Immunization history:: Client reports receiving the 1st dose of the Covid vaccine, Flu vaccine is not up to date. Meningococcal vaccine is up to date. - Social history:: Smoking status: Patient denies any tobacco usage or history of. Screenin:51 [facility] ED Fall Risk Assessment (Adult) History of falling in the last 3 months, ap3 including since admission No falls in past 3 months (0 pts). Abuse screen: Denies threats or abuse. Nutritional screening: No deficits noted. Tuberculosis screening: No symptoms or risk factors identified. Assessment: 11:30 Reassessment: Patient appears in no apparent distress at this time. General: Appears in ld1 no apparent distress. comfortable, Behavior is calm, cooperative, appropriate for age. Pain: Denies pain. Neuro: Level of Consciousness is awake, alert, obeys commands, Oriented to person, place, time, situation. Cardiovascular: Capillary refill < 3 seconds Patient's skin is warm and dry. Respiratory: Airway is patent Respiratory effort is even, unlabored. GI: Abdomen is round non-distended. 11:30 : No signs and/or symptoms were reported regarding the genitourinary system. EENT: No ld1 signs and/or symptoms were reported regarding the EENT system. Derm: No signs and/or symptoms reported regarding the dermatologic system. Musculoskeletal: No signs and/or symptoms reported regarding the musculoskeletal system. Vital Signs: 09:48 BP 148 / 88; Pulse 83; Resp 18; Temp 97.4; Pulse Ox 100% ; Weight 74.84 kg; Pain 7/10; ap3 11:28 BP 138 / 88; Pulse 72; Resp 18; Pulse Ox 100% on R/A; ld1 12:23 BP 123 / 90; Pulse 65; Pulse Ox 95% ; tm6 09:48 Pain Scale: Adult ap3 ED Course: 09:41 Patient arrived in ED. rg4 09:48 Luisa Decker FNP-C is PHCP. snw 09:48 Clemente Berrios MD is Attending Physician. snw 09:50 Triage completed. ap3 09:51 Arm band placed on right wrist. ap3 09:57 Patient has correct armband on for positive identification. Bed in low position. Call ap3 light in reach. Adult w/ patient. monitoring tech on. Pulse ox on. NIBP on. 10:00 Kody Kimball RN is Primary Nurse. tm6 11:05 CXR XRAY In Process Unspecified. EDMS 11:30 No provider procedures requiring assistance completed. IV discontinued, intact, ld1 bleeding controlled, No redness/swelling at site. Administered Medications: 10:02 Drug: Simethicone PO 240 mg PO once Route: PO; ap3 Medication: 11:30 VIS not applicable for this client. ld1 Outcome: 12:08 Discharge ordered by . france 12:48 Discharged to home ambulatory, ld1 12:48 Condition: stable 12:48 Discharge instructions given to patient, Instructed on discharge instructions, follow up and referral plans. medication usage, Demonstrated understanding of instructions, follow-up care, medications, 12:48 Patient left the ED. ld1 Signatures: Dispatcher [employer] EDMS Luisa Decker, TEEN COUNSELOR-C TEEN COUNSELOR-Csnw Claudette Isabel rg4 Judith Solomon RN RN ap3 Mallory Avitia RN RN ld1 Kody Kimball, RN RN tm6
--- NOTE | 2023-07-02 12:09 | EDPHYS ---
Physician Documentation [facility] Name: Lurdes Tse Age: 48 yrs Sex: Female : 1975 Arrival Date: 07/02/2023 Time: 09:40 Bed 18 Private MD: SUSI Physician Clemente Berrios HPI: 07/02 10:10 This 48 yrs old Female presents to ER via Ambulatory with complaints of Heartburn. snw 10:10 The patient or guardian reports chest pain that is located primarily in the across snw anterior chest, pressure, indigestion. Onset: acutely, 4 day(s) ago, and became persistent. The patient has not experienced similar symptoms in the past. Pt on double blind study for MG per Dr Daigle at [facility] in [place]. pt had a meningitis vaccine. Pt states since she had this immunization she has had "indigestion". Described as squeezing across bilateral breasts and bubbles in her chest. Historical: - Allergies: 09:50 magnesium; ap3 09:50 potassium; ap3 - PMHx: 09:50 Hyperlipidemia; Migraines; Myasthenia Gravis; ap3 - Immunization history:: Client reports receiving the 1st dose of the Covid vaccine, Flu vaccine is not up to date. Meningococcal vaccine is up to date. - Social history:: Smoking status: Patient denies any tobacco usage or history of. ROS: 10:08 Eyes: Negative for injury, pain, redness, and discharge, ENT: Negative for injury, snw pain, and discharge, Neck: Negative for injury, pain, and swelling, Cardiovascular: indigestion, squeezing across chest at breast level bilaterally Respiratory: Negative for shortness of breath, cough, wheezing, and pleuritic chest pain, Abdomen/GI: Negative for abdominal pain, nausea, vomiting, diarrhea, and constipation, Back: Negative for injury and pain, : Negative for injury, bleeding, discharge, and swelling, MS/Extremity: Negative for injury and deformity, Skin: Negative for injury, rash, and discoloration, Neuro: Negative for headache, weakness, numbness, tingling, and seizure, Psych: Negative for depression, anxiety, suicide ideation, homicidal ideation, and hallucinations, 10:08 Constitutional: Positive for swallowing a little more difficult, Exam: 10:08 Constitutional: This is a well developed, well nourished patient who is awake, alert, snw and in no acute distress. Head/Face: Normocephalic, atraumatic. Eyes: Pupils equal round and reactive to light, extra-ocular motions intact. Lids and lashes normal. Conjunctiva and sclera are non-icteric and not injected. Cornea within normal limits. Periorbital areas with no swelling, redness, or edema. ENT: Nares patent. No nasal discharge, no septal abnormalities noted. Tympanic membranes are normal and external auditory canals are clear. Oropharynx with no redness, swelling, or masses, exudates, or evidence of obstruction, uvula midline. Mucous membranes moist. Neck: Trachea midline, no thyromegaly or masses palpated, and no cervical lymphadenopathy. Supple, full range of motion without nuchal rigidity, or vertebral point tenderness. No Meningismus. Chest/axilla: Normal chest wall appearance and motion. Nontender with no deformity. No lesions are appreciated. Cardiovascular: Regular rate and rhythm with a normal S1 and S2. No gallops, murmurs, or rubs. Normal PMI, no JVD. No pulse deficits. Respiratory: Lungs have equal breath sounds bilaterally, clear to auscultation and percussion. No rales, rhonchi or wheezes noted. No increased work of breathing, no retractions or nasal flaring. Abdomen/GI: Soft, non-tender, with normal bowel sounds. No distension or tympany. No guarding or rebound. No evidence of tenderness throughout. Back: No spinal tenderness. No costovertebral tenderness. Full range of motion. Skin: Warm, dry with normal turgor. Normal color with no rashes, no lesions, and no evidence of cellulitis. MS/ Extremity: Pulses equal, no cyanosis. Neurovascular intact. Full, normal range of motion. Neuro: Awake and alert, GCS 15, oriented to person, place, time, and situation. Cranial nerves II-XII grossly intact. Motor strength 5/5 in all extremities. Sensory grossly intact. Cerebellar exam normal. Normal gait. Psych: Awake, alert, with orientation to person, place and time. Behavior, mood, and affect are within normal limits. Vital Signs: 09:48 BP 148 / 88; Pulse 83; Resp 18; Temp 97.4; Pulse Ox 100% ; Weight 74.84 kg; Pain 7/10; ap3 11:28 BP 138 / 88; Pulse 72; Resp 18; Pulse Ox 100% on R/A; ld1 12:23 BP 123 / 90; Pulse 65; Pulse Ox 95% ; tm6 09:48 Pain Scale: Adult ap3 MDM: 09:49 Patient medically screened. snw 10:09 Differential diagnosis: URI, pneumonia reflux, angina. Data reviewed: vital signs, snw nurses notes. I considered the following discharge prescriptions or medication management in the emergency department Medications were administered in the Emergency Department. See OCT. 10:13 ECG:. snw 07/02 10:07 Order name: Basic Metabolic Panel; Complete Time: 11:06 snw 07/02 10:07 Order name: CBC with Diff; Complete Time: 12:12 snw 07/02 10:07 Order name: LFT's; Complete Time: 11:06 snw 07/02 10:07 Order name: Magnesium; Complete Time: 11:06 snw 07/02 10:07 Order name: NT PRO-BNP; Complete Time: 11:06 snw 07/02 10:07 Order name: PT-INR; Complete Time: 10:54 snw 07/02 10:07 Order name: Troponin HS; Complete Time: 11:06 snw 07/02 12:10 Order name: CBC Smear Scan; Complete Time: 12:12 EDMS 07/02 09:52 Order name: CXR XRAY; Complete Time: 11:41 snw 07/02 09:49 Order name: EKG; Complete Time: 09:49 snw 07/02 09:49 Order name: EKG - Nurse/Tech; Complete Time: 10:10 snw 07/02 10:07 Order name: Cardiac monitoring; Complete Time: 10:10 snw 07/02 10:07 Order name: IV Saline Lock; Complete Time: 10:40 snw 07/02 10:07 Order name: Labs collected and sent; Complete Time: 10:40 snw 07/02 10:07 Order name: O2 Per Protocol; Complete Time: 10:10 snw 07/02 10:07 Order name: O2 Sat Monitoring; Complete Time: 10:10 snw EC:13 Rate is 70 beats/min. Rhythm is regular. QRS [place] is Normal. [place] interval is normal. QRS snw interval is normal. QT interval is normal. No Q waves. T waves are Inverted in leads aVL, aVR. Clinical impression: NSR w/ Non-specific ST/T Changes. Administered Medications: 10:02 Drug: Simethicone PO 240 mg PO once Route: PO; ap3 Disposition Summary: 07/02/23 12:08 Discharge Ordered Notes: Location: Home snw Condition: Stable snw Diagnosis - Allergy, unspecified snw - Eosinophilia snw Followup: snw - With: Emergency Department - When: As needed - Reason: Worsening of condition Followup: snw - With: Private Physician - When: 5 - 6 days - Reason: Recheck today's complaints, Continuance of care, Re-evaluation by your physician Discharge Instructions: - Discharge Summary Sheet snw - Allergies, Adult snw - Food Choices for Gastroesophageal Reflux Disease, Adult snw - Gastroesophageal Reflux Disease, Adult snw Forms: - Medication Reconciliation Form snw - Thank You Letter snw - Antibiotic Education snw - Prescription Opioid Use snw - Patient Portal Instructions snw - Leadership Thank You Letter snw Prescriptions: - Zyrtec 10 mg Oral Tablet - take 1 tablet ORAL route once daily As needed; 20 tablet; Refills: 0, Product snw Selection Permitted - Pepcid 20 mg Oral Tablet - take 1 tablet ORAL route once daily; 20 tablet; Refills: 0, Product Selection snw Permitted Signatures: Dispatcher [employer] Luisa Zamora FNP-C COMMUNITY MARKETING MANAGER-Thelmaw Judith Solomon RN RN ap3
[2023-07-02 12:10] LABS: Blood Morphology Comment NOT SEEN (NOT SEEN); Platelet Estimate ADEQ; White Blood Cell Scan OK (OK)
[2023-07-02 12:53] VITALS: TEMP 97.4
[2023-07-02 12:56] VITALS: BP 123/90; O2SAT 95
--- NOTE | 2023-07-05 17:02 | EKG ---
Test Date: 2023-07-02 Test Time: 10:08:05 Instructional Manager: Orlin MARIE MEASUREMENT RESULTS: Intervals: Rate: 70 [place]: 154 QRSD: 62 QT: 398 QTc: 429 [place]: P: 83 [place]: 154 QRS: 79 T: 86 INTERPRETIVE STATEMENTS: Normal sinus rhythm Normal ECG Compared to ECG 06/30/2017 09:08:03 No significant changes Electronically Signed On 07-05-23 16:54:13 RUG HOOKER by Elia Garcia
== END 2023-07-02 12:48 | disposition home or self-care (01) ==
LOC: ER 09:40
DX: T78.40XA Allergy, unspecified, initial encounter (principal); D72.10 Eosinophilia, unspecified; R12 Heartburn; R07.89 Other chest pain; K30 Functional dyspepsia; E78.5 Hyperlipidemia, unspecified; Z91.048 Other nonmedicinal substance allergy status
CPT/HCPCS: 36415; 71045; 80048; 80076; 83735; 83880; 84484; 85025; 85610; 93005; 99284